=== PATIENT | female | born 1985 | race Caucasian/White ===

== ENCOUNTER 2018-03-21 13:52 | Emergency (ER) | payer OTHER ==
--- OUTSIDE RECORDS SUMMARY | 2018-03-21 13:58 | XMS REPORT | Continuity of Care Document ---
:1985 External Reference #:[id number] Author Name Brice Mcneal M.D. Address [address] [place] [address] [address] [place] [address] Care Team Providers Name Role Phone HCP given Primary Care Physician Unavailable Payers Type Date Identification Numbers Payment Provider Subscriber Expires: 2017 Policy Number: [id number] Bebe Ronstaci Munoz Group Name: [id number] PayID: [id number] [place] [address] Effective: 2017 Policy Number: [id number] [facility] Munoz PayID: [id number] [address] [address] [place] [address] Advance Directives Description No Information Available Problems Date Description Provider Status Onset: 02/05/2018 Anxiety state Jennifer Demarco PA Active Onset: 02/05/2018 Irritable bowel syndrome characterized by Jennifer Demarco PA Active alternating bowel habit Onset: 02/05/2018 Chronic myeloid leukemia Jennfier Demarco PA Active Onset: 08/21/2017 Overweight Jennifer Demarco PA Active Onset: 10/20/2014 Abnormal cervical Papanicolaou smear with Prerna Royal MD Active positive human papillomavirus deoxyribonucleic acid test Onset: 09/18/2012 Personal History Of Gestational Diabetes Prerna Royal MD Active Onset: 09/18/2011 Morbid obesity Prerna Royal MD Active Family History Date Family Member(s) Problem(s) Comments Father 1961.high bp, obesity Mother 1961 htn and obesity. fibroids/ten for menorrhagia Text Input 2 brothers(youngerx1 ) and one sister.great MGM with coloncancer. mom with neg screen to date. 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 wine Recreational Drug Use Denies Drug Use Tobacco Use Start: Unknown Non Smoker Smoking Status Reviewed: 08/22/17 Non Smoker Exercise Type/Frequency Exercises regularly runner Sun Exposure Uses sunscreen Guns in Home No Smoke Alarms Yes smoke alarm Currently Active Patient is currently sexually active Contraceptive Methods IUD Mirena STD's HPV Allergies, Adverse Reactions, Alerts Description No Known Drug Allergies Medications Medication Date Status Form Strength Qnty SIG Indications Ordering Provider Hyoscyamine 03/12 Active Tablets 0.125mg 90tab 1 tab po K58.2 Silcojimmie, Sulfate s tid prn for Brice IBS M.D. symptoms Imatinib 02/11 Active Tablets 400mg Take One Unknown Mesylate Tablet By Mouth Daily With A Meal And A Glass Of Water Ativan 01/10 Active Tablets 0.5mg 45tab take 1/2 to Elizabet, s 1 tablet by toby Narvaez up to M.D. 3 tablets per day as needed when anxiety is severe maximum daily dose of 3 per day Multivitamin 12/20 Active Tablets 1 by mouth Unknown every day Mirena (52 MG) Active IUD 20mcg/24H Unknown R Dicyclomine HCL 02/05 Hx Tablets 20mg 90tab 1 tab by K58.2 Elizabet, s mouth up to Brice, - three times M.D. 03/11 a day with meals as needed for diarrhea Omeprazole 02/[address] 20mg 30cap 1 cap by R12 Elizabet, s mouth every Brice, - day for M.D. 03/11 heartburn Tamiflu 07/15 Hx Capsules 75mg 10cap 1 by mouth s once a day A. - Winter, 07/24 M.D. /2015 No Active 10/20 Hx Unknown Medications /2014 - 07/15 Benzonatate 04/24 Hx Capsules 100mg 30cap 1-2 by 786.2 Elizabet, s mouth three Brice, - times a day M.D. 05/08 as needed for cough Symbicort 04/24 Hx Aerosol 80-4.5mcg 1samp 2 puffs 786.2 Silcoff, /2013 /Act le 2x/day; Domenico Narvaez M.D. 05/08 after use Ciprofloxacin 11/23 Hx Tablets 250mg 6tabs 1 tab by 599.0 Silcoff, HCL mouth twice Brice, - a day x 3 M.D. 11/26 Phenazopyridine 11/23 Hx Tablets 200mg 6tabs 1 tab by 599.0 Silcoff, HCL mouth three Brice, - times a M.D. 12/24 day, as needed Azithromycin 10/14 Hx Tablets 250mg 6tabs 2 tab po on 786.2 Lele day one Prerna CROSS - then one 11/20 tab daily 4more days prn for your respiratory infection Fluticasone 10/14 Hx Suspension 50mcg/Act 3unit 2 sprays 786.2 Propionate s into each Prerna CROSS - nostril qd 11/14 for nasal congestion. takes 2 days for effect. use for a week. rinse mouth post Dicloxacillin 08/31 Hx Capsules 500mg 40cap 1 cap po 611.9 Silcoff, Sodium s qid x 10 Brice, - days M.D. 09/10 Medela Double 04/02 Hx 1unit use as Lele Breast Pump s needed for Prerna CROSS - adequate 10/14 milk supply for your baby. Bupropion HCL XL 10/08 Hx Tablets ER 300mg 90tab take 1 309.0 24HR s tablet Prerna CROSS - every 11/17 morning Prilosec 09/[address] 20mg 180ca 1 tab po 530.81 Lele, ps daily. can Prerna CROSS - use bid 09/17 prn. Prozac 09/17 Hx Capsules 20mg 90cap one po in 309.0 Lele, s am . Prerna CROSS - 09/17 Pantoprazole 09/[address] 20mg 90tab one tab po 530.81 Lele, Sodium s daily for Prerna CROSS - your reflux 01/04 symtpoms /2012 instead of the omepazole as is safer Bupropion HCL XL 09/17 Hx Tablets ER 150mg 60tab 1 tablet 309.0 Lele, 24HR s every Prerna CROSS - morning for 10/08 3 days then change to 300mg or 2 tab qam. when run out fill script for 300 mg 09/16 Hx Tablets 0.8mg otc one tablet Unknown po daily - 10/16 Nitrofurantoin 12/25 Hx Capsules 100mg 28cap 1 tab po 599.0 Lindseycojimmie s qid x 7 Brice, - days M.D. 01/01 Multi Vitamin 07/27 Hx Tablets Lele, Prerna CROSS - 09/16 Cipro 02/10 Hx Tablets 250mg 6tabs 1 tab bid x 599.0 Elizabet 3 Brice, - M.D. 06/26 Ortho Tri-Cyclen Hx Tablets 3pill take one V25.09 Lele Lo /0000 pk tablet by Prerna CROSS - mouth every 12/22 day directed Calcium Chews Hx Chewtabs 600-400mg otc as directed Unknown /0000 -Unit - 10/19 Immunizations CPT Code Status Date Vaccine Lot # [id number] Given 09/18/2011 Adacel or Boostrix, TDaP [id number] Vital Signs Date Vital Result Comment 03/12/2018 9:19am BP Systolic 140 mmHg BP Diastolic 60 mmHg Height 68.50 inches 5'8.50" Weight 259.00 lb BMI (Body Mass Index) 38.8 kg/m2 02/05/2018 9:34am BP Systolic 128 mmHg BP Diastolic 80 mmHg Weight 259.00 lb with shoes 01/10/2018 11:21am BP Systolic 134 mmHg BP Diastolic 70 mmHg Weight 265.00 lb 08/21/2017 4:03pm BP Systolic 124 mmHg BP Diastolic 78 mmHg Height 68.5 inches 5'8.50" Weight 262.00 lb BMI (Body Mass Index) 39.3 kg/m2 12/22/2015 2:48pm BP Systolic 116 mmHg BP Diastolic 64 mmHg Height 68.50 inches 5'8.50" Weight 215.00 lb BMI (Body Mass Index) 32.2 kg/m2 Last Menstrual Period [id number] 10/20/2014 9:40am BP Systolic 124 mmHg BP Diastolic 80 mmHg Height 68.5 inches 5'8.50" Weight 246.00 lb BMI (Body Mass Index) 36.9 kg/m2 04/24/2014 11:04am BP Systolic 110 mmHg BP Diastolic 78 mmHg Respiratory Rate 12 /min not laboured Body Temperature 98.6 F Height 68.50 inches 5'8.50" Weight 246.00 lb BMI (Body Mass Index) 36.9 kg/m2 11/23/2013 12:25pm BP Systolic 121 mmHg BP Diastolic 67 mmHg Heart Rate 52 /min Body Temperature 98.6 F Weight 270.00 lb 10/14/2013 10:57am BP Systolic 102 mmHg BP Diastolic 72 mmHg Height 68 inches 5'8" Weight 277.00 lb BMI (Body Mass Index) 42.1 kg/m2 Last Menstrual Period [id number] IUD 09/04/2013 3:59pm BP Systolic 116 mmHg BP Diastolic 82 mmHg Body Temperature 98.0 F 08/31/2013 4:31pm BP Systolic 115 mmHg BP Diastolic 59 mmHg Heart Rate 60 /min Body Temperature 97.8 F Height 68 inches 5'8" Weight 276.00 lb BMI (Body Mass Index) 42.0 kg/m2 09/18/2012 3:03pm BP Systolic 120 mmHg BP Diastolic 78 mmHg Height 67.50 inches 5'7.50" Weight 284.00 lb BMI (Body Mass Index) 43.8 kg/m2 10/09/2011 10:09am BP Systolic 120 mmHg BP Diastolic 70 mmHg Weight 293.00 lb 09/18/2011 9:50am BP Systolic 124 mmHg BP Diastolic 76 mmHg Height 68.25 inches 5'8.25" Weight 297.00 lb BMI (Body Mass Index) 44.8 kg/m2 Last Menstrual Period [id number] 12/25/2010 2:26pm BP Systolic 120 mmHg BP Diastolic 60 mmHg Body Temperature 98.2 F Weight 266.00 lb 07/27/2010 3:46pm BP Systolic 138 mmHg BP Diastolic 80 mmHg Height 68.50 inches 5'8.50" Weight 273.00 lb BMI (Body Mass Index) 40.9 kg/m2 Last Menstrual Period [id number] 02/10/2010 1:37pm BP Systolic 116 mmHg BP Diastolic 71 mmHg Heart Rate 68 /min Body Temperature 98.5 F Height 68.5 inches 5'8.50" Weight 280.00 lb BMI (Body Mass Index) 42.0 kg/m2 Last Menstrual Period [id number] 07/07/2009 10:25am BP Systolic 130 mmHg BP Diastolic 78 mmHg Weight 263.00 lb Last Menstrual Period 0 12/30/2008 1:59pm BP Systolic 140 mmHg my readings 120/80 both arms. BP Diastolic 82 mmHg my readings 120/80 both arms. Height 68.5 inches 5'8.50" Weight 258.00 lb BMI (Body Mass Index) 38.7 kg/m2 Last Menstrual Period [id number] Results Test Date Facility Test Result H/L Range Note CBC Auto Diff 02/28/2018 [facility] White Blood 68.5 10^3/uL High 3.5 -10.8 [phone] Count Red Blood Count 3.62 10^6/uL Low 4.00-5.40 Hemoglobin 10.1 g/dL Low 12.0-16.0 Hematocrit 32 % Low 35-47 Mean Corpuscular Volume 89 fL 80-97 Mean Corpuscular Hemoglobin 28 pg 27-31 Mean Corpuscular HGB Conc 31 g/dL 31-36 Red Cell Distribution Width 17 % High 10.5-15 Platelet Count 303 10^3/uL 150-450 Mean Platelet Volume 9.3 um3 7.4-10.4 Abs Neutrophils 60.1 10^3/uL High 1.5-7.7 Manual Differential 02/28/2018 [facility] Immature Granulocytes 14 % High 0-9 [phone] Neutrophil % 66 % 38-83 Band % 7 % 0-8 Lymphocytes % 10 % Low 25-47 Monocytes % 3 % 0-7 Eosinophils % 3 % 0-6 Basophil % 4 % High 0-2 Metamyelocytes % 5 % High 0-2 Myelocytes % 2 % High 0-1 Nucleated Red Blood Cells/100 1 High 0-0 Abs Neutrophils 45.2 10^3/uL High 1.5-7.7 Abs Lymphocytes 6.9 10^3/uL High 1.0-4.8 Abs Monocytes 2.1 10^3/uL High 0-0.8 Abs Eosinophils 2.1 10^3/uL High 0-0.6 Abs Basophils 2.7 10^3/uL High 0-0.2 RBC Morphology Normal Normal Laboratory test 02/28/2018 [facility] Pathologist Review (SEE NOTE) 1 finding [phone] Comp Metabolic 02/21/2018 [facility] Sodium 140 mmol/L 135-145 Panel [phone] Potassium 3.9 mmol/L 3.5-5.0 Chloride 108 mmol/L 101-111 Co2 Carbon Dioxide 26 mmol/L 22-32 Anion Gap 6 mmol/L 2-11 Glucose 108 mg/dL High 70-100 Blood Urea Nitrogen 13 mg/dL 6-24 Creatinine 0.74 mg/dL 0.51-0.95 BUN/Creatinine Ratio 17.6 8-20 Calcium 9.1 mg/dL 8.6-10.3 Total Protein 6.7 g/dL 6.4-8.9 Albumin 4.1 g/dL 3.2-5.2 Globulin 2.6 g/dL 2-4 Albumin/Globulin Ratio 1.6 1-3 Total Bilirubin 0.60 mg/dL 0.2-1.0 Alkaline Phosphatase 74 U/L 34-104 Alt 30 U/L 7-52 Ast 31 U/L 13-39 Egfr Non- 89.8 >60 Egfr 108.7 >60 2 Laboratory test 02/21/2018 [facility] TSH (Thyroid 2.72 mcIU/mL 0.34 -5.60 finding [phone] Stim Horm) CBC Auto Diff 02/21/2018 [facility] White Blood 175.6 High 3.5-10.8 [phone] Count 10^3/uL Red Blood Count 3.55 10^6/uL Low 4.00-5.40 Hemoglobin 9.9 g/dL Low 12.0-16.0 Hematocrit 32 % Low 35-47 Mean Corpuscular Volume 89 fL 80-97 Mean Corpuscular Hemoglobin 28 pg 27-31 Mean Corpuscular HGB Conc 31 g/dL 31-36 Red Cell Distribution Width 17 % High 10.5-15 Platelet Count 361 10^3/uL 150-450 Mean Platelet Volume 9.4 um3 7.4-10.4 Abs Neutrophils 160.1 10^3/uL High 1.5-7.7 Abs Lymphocytes 7.4 10^3/uL High 1.0-4.8 Abs Monocytes 3.5 10^3/uL High 0-0.8 Abs Eosinophils 2.9 10^3/uL High 0-0.6 Abs Basophils 1.7 10^3/uL High 0-0.2 Manual Differential 02/21/2018 [facility] Immature Granulocytes 19 % High 0-9 [phone] Neutrophil % 64 % 38-83 Band % 14 % High 0-8 Lymphocytes % 6 % Low 25-47 Monocytes % 1 % 0-7 Eosinophils % 4 % 0-6 Basophil % 5 % High 0-2 Variant Lymph % 1 % 0-6 Metamyelocytes % 2 % 0-2 Myelocytes % 3 % High 0-1 Nucleated Red Blood Cells/100 2 High 0-0 Abs Neutrophils 112.4 10^3/uL High 1.5-7.7 Abs Lymphocytes 10.5 10^3/uL High 1.0-4.8 Abs Monocytes 1.8 10^3/uL High 0-0.8 Abs Eosinophils 7.0 10^3/uL High 0-0.6 Abs Basophils 8.8 10^3/uL High 0-0.2 Polychromasia 1+ Laboratory test 02/21/2018 [facility] Pathologist Review (SEE NOTE) 3 finding [phone] Laboratory test 02/04/2018 [facility] Pathologist Review (SEE NOTE) 4 finding [phone] Manual Differential 02/04/2018 [facility] Immature 23 % High 0-9 [phone] Granulocytes Neutrophil % 73 % 38-83 Band % 15 % High 0-8 Lymphocytes % 0 % Low 25-47 Monocytes % 0 % 0-7 Eosinophils % 1 % 0-6 Basophil % 0 % 0-2 Metamyelocytes % 4 % High 0-2 Myelocytes % 3 % High 0-1 Promyelocytes % 1 % Blast % 3 % High 5 Nucleated Red Blood Cells/100 25 High 0-0 Abs Neutrophils 113.4 10^3/uL High 1.5-7.7 Abs Lymphocytes 0 10^3/uL Low 1.0-4.8 Abs Monocytes 0 10^3/uL 0-0.8 Abs Eosinophils 1.6 10^3/uL High 0-0.6 Abs Basophils 0 10^3/uL 0-0.2 Hypochromasia 1+ Anisocytosis 1+ Laboratory test 02/04/2018 [facility] TSH (Thyroid 1.61 mcIU/mL 0.34 -5.60 finding [phone] Stim Horm) Comp Metabolic 02/04/2018 [facility] Sodium 137 mmol/L 135-145 Panel [phone] Potassium 3.8 mmol/L 3.5-5.0 Chloride 105 mmol/L 101-111 Co2 Carbon Dioxide 26 mmol/L 22-32 Anion Gap 6 mmol/L 2-11 Glucose 134 mg/dL High 70-100 Blood Urea Nitrogen 9 mg/dL 6-24 Creatinine 0.73 mg/dL 0.51-0.95 BUN/Creatinine Ratio 12.3 8-20 Calcium 9.2 mg/dL 8.6-10.3 Total Protein 7.5 g/dL 6.4-8.9 Albumin 4.3 g/dL 3.2-5.2 Globulin 3.2 g/dL 2-4 Albumin/Globulin Ratio 1.3 1-3 Total Bilirubin 0.60 mg/dL 0.2-1.0 Alkaline Phosphatase 62 U/L 34-104 Alt 25 U/L 7-52 Ast 28 U/L 13-39 Egfr Non- 91.3 >60 Egfr 110.4 >60 6 CBC Auto Diff 02/04/2018 [facility] White Blood 155.3 10^3/uL High 3.5-10.8 [phone] Count Red Blood Count 3.52 10^6/uL Low 4.00-5.40 Hemoglobin 9.9 g/dL Low 12.0-16.0 Hematocrit 31 % Low 35-47 Mean Corpuscular Volume 88 fL 80-97 Mean Corpuscular Hemoglobin 28 pg 27-31 Mean Corpuscular HGB Conc 32 g/dL 31-36 Red Cell Distribution Width 17 % High 10.5-15 Platelet Count 534 10^3/uL High 150-450 Mean Platelet Volume 8.6 um3 7.4-10.4 Abs Neutrophils 142.6 10^3/uL High 1.5-7.7 Leukemia/Lymphoma 01/21/2018 [facility] Path Interpretation (SEE NOTE) 7 Phenot [phone] 2-8 Marker BCR/Abl Trans 9:22 01/21/2018 [facility] BCR/abl (Fish) Abnormal Fish [phone] Result Summary BCR/abl (Fish) Result Table See Comment 8 BCR/abl (Fish) Specimen Bone Marrow BCR/abl (Fish) Referral Reason See Comment 9 BCR/abl (Fish) Method See Comment 10 BCR/abl Results See Comment 11 BCR/abl (Fish) Interpretation See Comment 12 BCR/abl (Fish) Additional Info See Comment 13 BCR/abl (Fish) Disclaimer See Comment 14 BCR/abl (Fish) Released By See Comment 15 CBC Auto Diff 01/21/2018 [facility] White Blood 142.9 10^3/uL High 3.5-10.8 [phone] Count Red Blood Count 3.69 10^6/uL Low 4.00-5.40 Hemoglobin 10.5 g/dL Low 12.0-16.0 Hematocrit 33 % Low 35-47 Mean Corpuscular Volume 89 fL 80-97 Mean Corpuscular Hemoglobin 29 pg 27-31 Mean Corpuscular HGB Conc 32 g/dL 31-36 Red Cell Distribution Width 17 % High 10.5-15 Platelet Count 335 10^3/uL 150-450 Mean Platelet Volume 9.1 um3 7.4-10.4 Abs Neutrophils 127.5 10^3/uL High 1.5-7.7 Abs Lymphocytes 6.2 10^3/uL High 1.0-4.8 Abs Monocytes 5.1 10^3/uL High 0-0.8 Abs Eosinophils 2.0 10^3/uL High 0-0.6 Abs Basophils 2.1 10^3/uL High 0-0.2 Manual Differential 01/21/2018 [facility] Immature Granulocytes 23 % High 0-9 [phone] Neutrophil % 55 % 38-83 Band % 11 % High 0-8 Lymphocytes % 5 % Low 25-47 Monocytes % 4 % 0-7 Eosinophils % 3 % 0-6 Basophil % 7 % High 0-2 Metamyelocytes % 3 % High 0-2 Myelocytes % 7 % High 0-1 Promyelocytes % 2 % Blast % 3 % High 16 Nucleated Red Blood Cells/100 4 High 0-0 Abs Neutrophils 78.6 10^3/uL High 1.5-7.7 Abs Lymphocytes 7.1 10^3/uL High 1.0-4.8 Abs Monocytes 5.7 10^3/uL High 0-0.8 Abs Eosinophils 4.3 10^3/uL High 0-0.6 Abs Basophils 10.0 10^3/uL High 0-0.2 RBC Morphology Normal Normal Laboratory test 01/21/2018 [facility] Pathologist Review (SEE NOTE) 17 finding [phone] BCR/Abl Trans 9:22 01/14/2018 [facility] BCR/abl (Fish) Abnormal Fish [phone] Result Summary BCR/abl (Fish) Result Table See Comment 18 BCR/abl (Fish) Specimen Blood BCR/abl (Fish) Referral Reason See Comment 19 BCR/abl (Fish) Method See Comment 20 BCR/abl Results See Comment 21 BCR/abl (Fish) Interpretation See Comment 22 BCR/abl (Fish) Disclaimer See Comment 23 BCR/abl (Fish) Released By See Comment 24 CBC Auto Diff 01/10/2018 [facility] White Blood 182.5 10^3/uL High 3.5-10.8 [phone] Count Red Blood Count 3.48 10^6/uL Low 4.00-5.40 Hemoglobin 10.0 g/dL Low 12.0-16.0 Hematocrit 31 % Low 35-47 Mean Corpuscular Volume 89 fL 80-97 Mean Corpuscular Hemoglobin 29 pg 27-31 Mean Corpuscular HGB Conc 32 g/dL 31-36 Red Cell Distribution Width 17 % High 10.5-15 Platelet Count 425 10^3/uL 150-450 Mean Platelet Volume 8.7 um3 7.4-10.4 Abs Neutrophils 163.5 10^3/uL High 1.5-7.7 Comp Metabolic Panel 01/10/2018 [facility] Sodium 138 mmol/L 135- 145 [phone] Potassium 3.8 mmol/L 3.5-5.0 Chloride 105 mmol/L 101-111 Co2 Carbon Dioxide 27 mmol/L 22-32 Anion Gap 6 mmol/L 2-11 Glucose 94 mg/dL 70-100 Blood Urea Nitrogen 12 mg/dL 6-24 Creatinine 0.68 mg/dL 0.51-0.95 BUN/Creatinine Ratio 17.6 8-20 Calcium 9.0 mg/dL 8.6-10.3 Total Protein 6.9 g/dL 6.4-8.9 Albumin 4.2 g/dL 3.2-5.2 Globulin 2.7 g/dL 2-4 Albumin/Globulin Ratio 1.6 1-3 Total Bilirubin 0.60 mg/dL 0.2-1.0 Alkaline Phosphatase 104 U/L 34-104 Alt 79 U/L High 7-52 Ast 55 U/L High 13-39 Egfr Non- 99.0 >60 Egfr 119.8 >60 25 Celiac Panel 01/10/2018 [facility] Tissue Transglutaminase IgA <1.2 U/ mL 26 [phone] Ab Immunoglobulin A 151 mg/dL 61 - 356 Celiac Interpretation See Comment 27 Laboratory test finding 01/10/2018 [facility] Lipase 51 U/L 11.0- 82.0 [phone] Erythrocyte Sed Rate 38 mm/Hr High 0-14 Amylase 32 U/L 29-103 Manual Differential 01/10/2018 [facility] Immature Granulocytes 39 % High 0-9 [phone] Neutrophil % 47 % 38-83 Band % 16 % High 0-8 Lymphocytes % 5 % Low 25-47 Monocytes % 4 % 0-7 Eosinophils % 2 % 0-6 Basophil % 2 % 0-2 Metamyelocytes % 6 % High 0-2 Myelocytes % 15 % High 0-1 Promyelocytes % 2 % Blast % 1 % High 28 Abs Neutrophils 85.8 10^3/uL High 1.5-7.7 Abs Lymphocytes 9.1 10^3/uL High 1.0-4.8 Abs Monocytes 7.3 10^3/uL High 0-0.8 Abs Eosinophils 3.7 10^3/uL High 0-0.6 Abs Basophils 3.7 10^3/uL High 0-0.2 Polychromasia 1+ Anisocytosis 2+ Laboratory test 01/10/2018 [facility] Pathologist Review (SEE NOTE) 29 finding [phone] Laboratory test 12/22/2015 [facility] Hemoglobin A1c <pending> finding [phone] (Glyco HGB) Vitamin D Total 25(Oh) <pending> Laboratory test 12/22/2015 [facility] TSH (Thyroid <pending> finding [phone] Stim Horm) Laboratory test 12/22/2015 [facility] Cytology SEE RESULT BELOW 30 finding [phone] Human Papilloma Virus Rna Negative Negative 31 Laboratory test finding 10/20/2014 [facility] Cytology SEE RESULT BELOW 32 [phone] Human Papilloma Virus Rna Negative Negative 33 Laboratory test finding 10/20/2014 In House Glucose Quantitative 63 Laboratory test finding 10/20/2014 In House Hemoglobin A1c 5.7 Ua Inhouse 11/23/2013 In House Ua Glucose - Ua Bilirubin - Ua Ketones - Ua Specific [place] 1.020 Ua Blood sm Ua PH 6.5 Ua Protein 1+ Ua Urobilinogen - Ua Nitrite + Ua Leukocytes mod Laboratory test 10/14/2013 In House Hemoglobin A1c 5.3 finding Laboratory test 10/14/2013 In House Glucose 87 finding Human Papilloma 09/22/2012 [facility] Human Papillomavirus See Comment 34 Virus [phone] Source Human Papillomavirus High Risk Negative Negative 35 Laboratory test 09/18/2012 [facility] Cytology RUN DATE: wnl 36, 37 finding [phone] 09/22/ SEE NOTE> Laboratory test 09/18/2012 In House Glucose 98 finding Quantitative Hemoglobin A1c 5.7 Comp Metabolic Panel 12/14/2011 [facility] Sodium 135 mmol/L 135- 145 [phone] Potassium 3.6 mmol/L 3.5-5.0 Chloride 109 mmol/L 101-111 Co2 (Carbon Dioxide) 22.0 mmol/L 22-32 Anion Gap 4.0 mmol/L 2-11 38 Glucose 105 mg/dL High 70-100 BUN 10 mg/dL 6-24 Creatinine 0.6 mg/dL 0.50-1.40 One Over Creatinine 1.66 BUN/Creatinine Ratio 16.7 8-20 Calcium 8.6 mg/dL 8.1-9.9 Total Protein 6.1 GM/DL Low 6.2-8.1 Albumin 3.6 GM/DL 3.6-5.4 Globulin 2.5 GM/DL 2-4 Albumin/Globulin Ratio 1.4 1-3 Bilirubin Total 0.7 mg/dL 0.4-1.5 39 Alkaline Phosphatase 51 U/L 30-110 Alt (SGPT) 18 U/L 14-54 Ast (Sgot) 19 U/L 12-42 eGFR Non- 119.0 > 60 eGFR 153.1 > 60 40 Laboratory test 12/14/2011 [facility] Quantitative 6203.0 High 0 -5 41 finding [phone] MIU/ML Urine Culture & 12/14/2011 [facility] M 42 Sensitivi [phone] ----- <SEE NOTE> Laboratory test 12/14/2011 [facility] PTT (Aptt) 24.7 SEC Low 25.1- 38. finding [phone] Protime 12/14/2011 [facility] Inr 0.94 0.88-1.1 43 [phone] 3 Protime 11.1 SEC 10.3-13.5 44 Urinalysis W/Microscopic 12/14/2011 [facility] Ua Color YELLOW Yellow [phone] Appearance-Urine CLEAR Clear Specific [place]-Ur 1.022 1.010-1.030 Esterase-Urine NEGATIVE Negative Nitrite NEGATIVE Negative [id number] NEGATIVE Negative Protein-Urine NEGATIVE Negative PH-Urine 5.5 5-9 Blood-Urine 2+ Negative Ketones-Urine NEGATIVE Negative Bilirubin-Ur NEGATIVE Negative Glucose-Urine NEGATIVE Negative RBC-Urine 0-2 0-2 Epith Cells-Ur MANY None Bacteria-Urine 1+ None CBC Auto Diff 12/14/2011 [facility] White Blood Count 12.2 CUMM High 4.8-10.8 [phone] Red Cell Count 4.79 CUMM 4.2-5.4 Hemoglobin 13.4 g/dL 12.0-16.0 Hematocrit 40 % 35-47 Mean Corpuscular Volume 84 um3 79-97 Mean Corpuscular Hemoglob 28 pg 27-31 Mean Corpuscular HGB Cone 34 g/dL 32-36 Redcell Distribution WDTH 14 % 10.5-15 Platelet Count 265 CUMM 150-450 Mean Platelet Volume 9.5 um3 7.4-10.4 Gran % 72.5 % 38-83 Lymph % 20.6 % 20-45 Mononuclear % 6.0 % 1-9 Eosinophil % 0.3 % 0-6 Basophil % 0.6 % 0-2 Abs Lymphs 2.5 1.0-4.8 Abs Mononuclear 0.7 0-0.8 Absolute Neutrophil Count 8.8 High 1.5-7.7 Abs Eosinophils 0 0-0.6 Abs Basophils 0.1 0-0.2 Laboratory test 09/14/2011 [facility] TSH 2.41 MIU/ML 0.34-5.60 finding [phone] Lipid Profile 09/14/2011 [facility] Triglyceride 63 mg/dL 40-200 (Trig/Chol/HDL) [phone] Cholesterol 152 mg/dL Less Than 200 45 High Density Lipoprotein 59 mg/dL 40-60 46 Cholesterol/HDL Ratio 2.58 AVERAGE 1-4.44 Low Density Lipoprotein 80 mg/dL Less Than 100 47 Comp Metabolic Panel 09/14/2011 [facility] Sodium 135 mmol/L 135- 145 [phone] Potassium 3.9 mmol/L 3.5-5.0 Chloride 105 mmol/L 101-111 Co2 (Carbon Dioxide) 26.0 mmol/L 22-32 Anion Gap 4.0 mmol/L 2-11 48 Glucose 97 mg/dL 70-100 BUN 11 mg/dL 6-24 Creatinine 0.7 mg/dL 0.50-1.40 One Over Creatinine 1.42 BUN/Creatinine Ratio 15.7 8-20 Calcium 8.4 mg/dL 8.1-9.9 Total Protein 6.4 GM/DL 6.2-8.1 Albumin 3.6 GM/DL 3.6-5.4 Globulin 2.8 GM/DL 2-4 Albumin/Globulin Ratio 1.3 1-3 Bilirubin Total 0.8 mg/dL 0.4-1.5 49 Alkaline Phosphatase 54 U/L 30-110 Alt (SGPT) 24 U/L 14-54 Ast (Sgot) 25 U/L 12-42 eGFR Non- 99.6 > 60 eGFR 128.1 > 60 50 CBC With Manual 09/14/2011 [facility] White Blood Count 7.5 CUMM 4.8 -10.8 Diff [phone] Red Cell Count 4.76 CUMM 4.2-5.4 Hemoglobin 13.9 g/dL 12.0-16.0 Hematocrit 40 % 35-47 Mean Corpuscular Volume 85 um3 79-97 Mean Corpuscular Hemoglob 29 pg 27-31 Mean Corpuscular HGB Cone 34 g/dL 32-36 Redcell Distribution WDTH 14 % 10.5-15 Platelet Count 260 CUMM 150-450 Mean Platelet Volume 10.8 um3 High 7.4-10.4 Polysegmented Neutrophil 53 % 38-83 Lymphocyte 40 % 25-47 Monocyte 5 % 0-13 Eosinophil 2 % 0-6 Absolute Neutrophil Count 3.90 RBC Morphology NORMAL [facility]0 High 0 -5 51 finding [phone] MIU/ML Urine Micro 12/25/2010 In House Ua WBC 4-6 Inhouse Ua RBC 8-10 Ua Casts - Ua Epi - Ua Other casts Ua Glucose - Ua Bilirubin - Ua Ketones - Ua Specific [place] 1.020 Ua Blood 3+ Ua PH 6.0 Ua Protein + Ua Urobilinogen - Ua Nitrite - Ua Leukocytes 3+ Laboratory test 07/27/2010 [facility] Cytology <SEE 52 finding [phone] NOTE> Urine Micro Inhouse 02/10/2010 In House Ua WBC tntc Ua RBC occ Ua Casts - Ua Epi - Ua Other - Ua Glucose - Ua Bilirubin - Ua Ketones - Ua Specific [place] 1.010 Ua Blood - Ua PH 6.0 Ua Protein tr Ua Urobilinogen - Ua Nitrite - Ua Leukocytes mod Culture Urine 02/10/2010 In House Colonies 02/20 Inhouse Urine Culture & 10/22/2009 [facility] Urine Culture SN2 53 Sensitivi [phone] Sensitivi Laboratory test 07/07/2009 [facility] Cytology 54 finding [phone] - <SEE NOTE> 1 Findings compatible with the patient's known myeloproliferative disorder. Additional studies as clinically warranted. Reviewed by Dr. Hernandez 2 Because ethnic data is not always readily available, this report includes an eGFR for both -Americans and non- Americans. The National Kidney Disease Education Program (NKDEP) does not endorse the use of the MDRD equation for patients that are not between the ages of 18 and 70, are , have extremes of body size, muscle mass, or nutritional status, or are non- or non-. According to the National Kidney Foundation, irrespective of diagnosis, the stage of the disease is based on the level of kidney function: Stage Description GFR(mL/min/1.73 m(2)) 1 Kidney damage with normal or decreased GFR 90 2 Kidney damage with mild decrease in GFR 60-89 3 Moderate decrease in GFR 30-59 4 Severe decrease in GFR 15-29 5 Kidney failure <15 (or dialysis) 3 Leukocytosis with left-shifted granulocytes and occasional circulating blasts, compatible with CML. Reviewed by Trinity Sanchez MD 4 Profound absolute leukocytosis with left-shifted granulocytes, absolute neutrophilia, and absolute basophilia, compatible with CML. No evidence of blastic transformation. Reviewed by Trinity Sanchez MD 5 Verbal to [id number] by [id number] at 1515 on 02/04/18. Results read back accurately. 6 Because ethnic data is not always readily available, this report includes an eGFR for both -Americans and non- Americans. The National Kidney Disease Education Program (NKDEP) does not endorse the use of the MDRD equation for patients that are not between the ages of 18 and 70, are , have extremes of body size, muscle mass, or nutritional status, or are non- or non-. According to the National Kidney Foundation, irrespective of diagnosis, the stage of the disease is based on the level of kidney function: Stage Description GFR(mL/min/1.73 m(2)) 1 Kidney damage with normal or decreased GFR 90 2 Kidney damage with mild decrease in GFR 60-89 3 Moderate decrease in GFR 30-59 4 Severe decrease in GFR 15-29 5 Kidney failure <15 (or dialysis) 7 FINAL DIAGNOSIS: No immunophenotypic abnormalities identified. Specimen Source: Bone marrow Flow cytometry immunophenotypic analysis: Interpretative data: Blasts: 1% Lymphocytes: 2% of WBCs B-cells: 7% of lymphocytes with no evidence of light chain restriction or other immunophenotypic abnormality. T-cells/NK cells: No aberrant population detected. Markers tested: CD3, CD10, CD16, CD19, CD34, CD45, kappa surface light chains, lambda surface light chains, 7-AAD. Quality Assessment: Acceptable Viability: Acceptable Viable lymphocytes (7-AAD): 98% Specimen received within validated guidelines. A Gorman-Giemsa stained slide prepared from the flow cytometry specimen was examined for quality purposes. Electronically signed by: Reese Hernandez MD 01/24/18 3000 Technical component performed by: [address] [address] Market Survey Representative: Toño Gomes II, MD, PhD. 8 Abnormality Name Result Abn Cutoff (%) (%) t(9;22) ABL1/BCR fusion Abnormal 89.2 <0.6 9 RESULT: D72.829 elevated white blood cell count, unspecified 10 Locus and probes [Strategy;#Nuclei;Class] 9q34(ABL1),22q11.2(BCR) [DFISH;500;ASR] Probe strategy includes: DFISH=dual color, double fusion. 11 RESULT: nuc boris(ABL1,BCR)x3(ABL1 con BCRx2)[446/500] 12 The result is abnormal and indicates BCR/ABL1 fusion in 89.2% of nuclei. This result indicates persistence of this patient's known BCR/ABL1 fusion clone. For monitoring response to therapy, RT-PCR for BCR/ABL is recommended, per NCCN guidelines. Although RT-PCR testing is not available on the current specimen, this testing can be performed on blood or bone marrow collected in EDTA or ACD. Please call [phone] regarding specimen requirements for RT-PCR based tests. 13 Previous Studies DATE SPECIMEN RESULT 01/14/2018 Blood BCR/ABL1 fusion (93% of nuclei) 14 Analyte Specific Reagent (ASR). This test was developed using an analyte specific reagent. Its performance characteristics were determined by [facility] in a manner consistent with CLIA requirements. This test has not been cleared or approved by the U.S. Food and Drug Administration. This FISH test does not rule out other chromosome abnormalities. 15 RESULT: Genesis Erickson D.O. Test Performed by: [address] [address] 16 Verbal to [] by [[id number]] at [0945] on [01/21/18].Results read back accurately 17 Progressive, marked leukocytosis with immature granulocytosis and few blasts highly suggestive of chronic myelogenous leukemia. Mild normocytic anemia noted. Reviewed by Dr. Hernandez 18 Abnormality Name Result Abn Cutoff (%) (%) t(9;22) ABL1/BCR fusion Abnormal 93 <0.6 19 RESULT: D72.829 elevated white blood cell count, unspecified 20 Locus and probes [Strategy;#Nuclei;Class] 9q34(ABL1),22q11.2(BCR) [DFISH;500;ASR] Probe strategy includes: DFISH=dual color, double fusion. 21 RESULT: nuc boris(ABL1,BCR)x3(ABL1 con BCRx2)[465/500] 22 The result is abnormal and indicates BCR/ABL1 fusion in 93% of nuclei. This result is usually associated with CML or B-ALL (Gilbertoom et al., Leuk Lymphoma 47:397-402, 2006; Filibertos et al., DANI 286:895-898, 2001). For monitoring response to therapy, RT-PCR for BCR/ABL1 is recommended, per NCCN guidelines. Although RT-PCR testing is not available on the current specimen, this testing can be performed on blood or bone marrow collected in EDTA or ACD. Please call [phone] regarding specimen requirements for RT-PCR based tests. 23 Analyte Specific Reagent (ASR). This test was developed using an analyte specific reagent. Its performance characteristics were determined by [facility] in a manner consistent with CLIA requirements. This test has not been cleared or approved by the U.S. Food and Drug Administration. This FISH test does not rule out other chromosome abnormalities. 24 RESULT: Cyndi Armstrong M.D. Test Performed by: [address] [address] 25 Because ethnic data is not always readily available, this report includes an eGFR for both -Americans and non- Americans. The National Kidney Disease Education Program (NKDEP) does not endorse the use of the MDRD equation for patients that are not between the ages of 18 and 70, are , have extremes of body size, muscle mass, or nutritional status, or are non- or non-. According to the National Kidney Foundation, irrespective of diagnosis, the stage of the disease is based on the level of kidney function: Stage Description GFR(mL/min/1.73 m(2)) 1 Kidney damage with normal or decreased GFR 90 2 Kidney damage with mild decrease in GFR 60-89 3 Moderate decrease in GFR 30-59 4 Severe decrease in GFR 15-29 5 Kidney failure <15 (or dialysis) 26 REFERENCE VALUE <4.0 (Negative) Test Performed by: [address] [address] 27 Negative serology. Celiac disease unlikely. However, approximately 10% of patients with celiac disease are seronegative. Also, patients who are already adhering to a gluten-free diet may be seronegative. If celiac disease is highly clinically suspected, consider HLA-DQ typing. Test Performed by: [facility] [address] [place] [address] 28 Verbal to Allison by NAKUL at 1447 on 01/10/18.WBC and % Blast results read back accurately 29 Profound absolute leukocytosis with absolute neutrophilia and left-shifted granulocytes with occasional blasts, most compatible with chronic myeloid leukemia. No evidence of a blast transformation. Recommend correlation with BCR:ABL translocation studies. Reviewed by Trinity Sanchez MD 30 SEE RESULT BELOW Name: EMILIA MUNOZ : [address]: Jennifer BANSAL Acct: [id number] Unit: [id number] AGE: 30 Location: [facility] Re12/22/15 SEX: F Status: REG REF SPEC: [id number] SARAH: 12/22/15-[address]: Jennifer BANSAL REQ: [id number] RECD: 12/22/15929 STATUS: SOUT _ ORDERED: IMAGE ANALYSIS, HPV/Thin Prep COMMENTS: [id number] FINAL DIAGNOSIS Negative for Intraepithelial lesion or Malignancy A. Ectocervical/Endocervical Specimen Adequacy: Satisfactory of evaluation Transformation zone component identified Predominance of white blood cells Patient Information: HPV: High risk HPV RNA testing regardless of pap results. Actual Specimen Date: 12/22/15 Last Menstrual Date: 12/02/15 Spec Date if unknown: 10/2014 ?: N Post Menopausal?: N Hysterectomy?: N Previous Abnormal Pap Smears?:Y If Yes, enter Diagnosis: HPV Other Pertinent History: Mirena IUD Date Time Test Result Flag (u) Normal Range 12/22/15 1525 HPV RNA Negative Negative The high-risk HPV types detected by the assay include: 16, 18, 31, 33, 35, 39, 45, 51, 52, 56, 58, 59, 66, and 68. Signed (signature on file) VERONICA Hylton(ASCP) 12/22 1300 This Pap test was evaluated with the assistance of the [employer] Test Imaging System. Due to cytologic findings at the industrial robotics mechanic microscope, comprehensive manual rescreening by a Faculty Support Coordinator may be required. The Pap Smear is a screening test designed to aid in the detection of premalignant and malignant conditions of the uterine cervix. It is not a diagnostic procedure and should not be used as the sole means of detecting cervical cancer. Both false- positive and false- negative reports do occur. Depending on your risk status, a Pap smear should be obtained and evaluated every 1-3 years. END OF REPORT * ML=Testing performed at Main Lab RUN DATE: 12/23/15 [facility] LAB LIVE PAGE 1 Patient: EMILIA MUNOZ Sarah [id number] (Continued) DEPARTMENT OF PATHOLOGY, [address] [place] [address] Reese Hernandez M.D. Director [facility] # [id number] 31 The high-risk HPV types detected by the assay include: 16, 18, 31, 33, 35, 39, 45, 51, 52, 56, 58, 59, 66, and 68. 32 SEE RESULT BELOW Name: EMILIA MUNOZ : [address]: Prerna Royal MD Acct: [id number] Unit: [id number] AGE: 29 Location: [facility] Re10/20/14 SEX: F Status: REG REF SPEC: [id number] SARAH: 10/20/[address]: Prerna Royal MD REQ: [id number] RECD: 10/20/14 STATUS: SOUT _ ORDERED: IMAGE ANALYSIS, HPV/Thin Prep FINAL DIAGNOSIS Negative for Intraepithelial lesion or Malignancy A. Ectocervical/Endocervical Specimen Adequacy: Satisfactory of evaluation Transformation zone component identified Patient Information: HPV: High risk HPV RNA testing regardless of pap results. Actual Specimen Date: 10/20/14 Last Menstrual Date: 10/02/14 ?: N Post Menopausal?: N Hysterectomy?: N Date Time Test Result Flag (u) Normal Range 10/20/14 1122 HPV RNA Negative Negative The high-risk HPV types detected by the assay include: 16, 18, 31, 33, 35, 39, 45, 51, 52, 56, 58, 59, 66, and 68. Signed (signature on file) Pravin GutierrezVERONICA (ASCP) 10/22 0856 This Pap test was evaluated with the assistance of the [employer] Test Imaging System. Due to cytologic findings at the industrial robotics mechanic microscope, comprehensive manual rescreening by a Faculty Support Coordinator may be required. The Pap Smear is a screening test designed to aid in the detection of premalignant and malignant conditions of the uterine cervix. It is not a diagnostic procedure and should not be used as the sole means of detecting cervical cancer. Both false- positive and false- negative reports do occur. Depending on your risk status, a Pap smear should be obtained and evaluated every 1-3 years. END OF REPORT * ML=Testing performed at Main Lab DEPARTMENT OF PATHOLOGY, [address] [place] [address] Reese Hernandez M.D. Director [facility] # [id number] 33 The high-risk HPV types detected by the assay include: 16, 18, 31, 33, 35, 39, 45, 51, 52, 56, 58, 59, 66, and 68. 34 RESULT: Ectocervical/Endocervical 35 For types 16, 18, 31, 33, 35, 39, 45, 51, 52, 56, 58, 59 and 68. Test Performed by: [address] [address] Market Survey Representative: Alec R. Cockerill, III, M.D. 36 awaiting HPV results 37 RUN DATE: 09/22/12 [facility] LAB LIVE PAGE 1 RUN TIME: [address] [place] [address], [place], [place] [address] Specimen Inquiry Name: EMILIA MUNOZ : [address]: Prerna Royal MD Acct: [id number] Unit: [id number] AGE: 27 Location: [facility] Re09/18/12 SEX: F Status: REG REF SPEC: [id number] SARAH: 09/18/12-[address]: Prerna Royal MD REQ: [id number] RECD: 09/19/12-1259 STATUS: SOUT _ ORDERED: IMAGE ANALYSIS, HPV / Thin Prep FINAL DIAGNOSIS Negative for Intraepithelial lesion or Malignancy COMMENTS: Specimen sent to [facility] in [place], [place] on 09/22/12 by [id number] at 1004. Results will be reported separately. A. Ectocervical/Endocervical Specimen Adequacy: Satisfactory of evaluation Transformation zone component identified Patient Information: HPV: High risk HPV DNA testing regardless of pap results. Actual Specimen Date: 09/18/12 Cautery: N Lesion, grossly demonstrate: N ?: N Post Menopausal?: N Hysterectomy?: N Other Pertinent History: 6 wks post , had C section Signed (signature on file) VERONICA Mcnair (ASCP) 09/22 1530 This Pap test was evaluated with the assistance of the ThinPrep Test Imaging System. Due to cytologic findings at the industrial robotics mechanic microscope, comprehensive manual rescreening by a Faculty Support Coordinator may be required. The Pap Smear is a screening test designed to aid in the detection of premalignant and malignant conditions of the uterine cervix. It is not a diagnostic procedure and should not be used as the sole means of detecting cervical cancer. Both false- positive and false- negative reports do occur. Depending on your risk status, a Pap smear shoudl be obtained and evaluated every 1-3 years. END OF REPORT * ML=Testing performed at Main Lab DEPARTMENT OF PATHOLOGY, [address] [place] [address] Reese Hernandez M.D. Director [facility] Permit #[id number] 38 Anion gap measurement may be of limited value in the presence of any alkalosis, especially in a combined acid base disorder. . 39 A metabolite of Naproxen, O-desmethylnaproxen, has been shown to interfere with the Jendrassik-Baidland method for measuring total bilirubin. Samples from patients who have taken Naproxen have shown spurious elevation in total bilirubin levels. 40 Because ethnic data is not always readily available, this report includes an eGFR for both -Americans and non- Americans. The National Kidney Disease Education Program (NKDEP) does not endorse the use of the MDRD equation for patients that are not between the ages of 18 and 70, are , have extremes of body size, muscle mass, or nutritional status, or are non- or non-. According to the National Kidney Foundation, irrespective of diagnosis, the stage of the disease is based on the level of kidney function: Stage Description GFR(mL/min/1.73 m(2)) 1 Kidney damage with normal or decreased GFR 90 2 Kidney damage with mild decrease in GFR 60-89 3 Moderate decrease in GFR 30-59 4 Severe decrease in GFR 15-29 5 Kidney failure <15 (or dialysis) 41 * MALES: < 5.0 MIU/ML NON FEMALES < 5.0 MIU/ML APPROX GESTATIONAL AGE APPROX HCG RANGE 0-1 WEEK < 5.0-50 1-2 WEEKS 50-500 2-3 WEEKS 100-5000 3-4 WEEKS 500-10,000 1-2 MONTHS 10,000-200,000 2-3 MONTHS 15,000-100,000 PLEASE NOTE: The intended use of this assay is the quantitative determination of HCG in human serum or plasma for the early detection of . These assays should not be used to diagnose any condition unrelated to . If an HCG level is inconsistent with, or unsupported by, clinical evidence, results should be confirmed by an alternate HCG method. . 42 RUN DATE: 12/16/11 [facility] NMI LIVE PAGE 1 RUN TIME: 1544 Specimen Inquiry RUN USER: INTERFACE Name: TERESAAminaEMILIA Status: JUNE CLI Re12/14/11 Age/Sex: 26/F Unit#: [id number] Location: : 81 SPEC #: [id number] SARAH: 12/14/11 STATUS: COMP REQ #: [id number] RECD: 12/14/[address] [facility] [address]: Alex CROSS,Patito SOURCE: URINE ENTR: 12/14/[address]: Lele CROSS,[place] [facility]: ORDERED: URINE C S QUERIES: SPECIMEN DESCRIPTION: URINE, CLEAN CATCH ACT WKST: UR 12/16/11 #1 Procedure Result Verified Site > URINE CULTURE SENSITIVI Final 12/16/11- 1544 ML SPECIMEN CONTAINS NORMAL URETHRAL OR PERINEAL CED AND DOES NOT SUGGEST URINARY TRACT INFECTION ML - [facility] Permit #[id number] [address] [facility] [address] DEPARTMENT OF PATHOLOGY, [facility] DATES [place], [place] [address] [place] Permit #[id number] Reese Hernandez M.D. Director Holley Christina M.D. Date Pitter 43 Recommended INR for Patients on Oral Anticoagulants Prophylaxis 2.0 - 3.0 Treatment of thrombosis 2.0 - 3.0 Prevention of embolism 2.0 - 3.0 Prevention of embolism from prosthetic heart valves 2.5 - 3.5 44 DIAGNOSIS,TREATMENT,AND THERAPY MUST BE BASED ON THE INR VALUE ALONE. 45 CHOLESTEROL INTERPRETATION: Desirable: Less than 200 MG/DL Borderline-High Risk: 200-239 MG/DL High-Risk: 240 MG/DL and over 46 HDL INTERPRETATION: Undesirable: High Risk: Less than 40 MG/DL Desirable: Low Risk: Greater than 60 MG/DL 47 LDL INTERPRETATION: Low Risk Optimal Level: LDL Less than 100 MG/DL Near or Above Optimal: LDL 100-129 MG/DL Borderline High Risk: LDL 130-159 MG/DL High Risk: LDL 160-189 MG/DL Very High Risk: LDL Greater than 189 MG/DL 48 Anion gap measurement may be of limited value in the presence of any alkalosis, especially in a combined acid base disorder. . 49 A metabolite of Naproxen, O-desmethylnaproxen, has been shown to interfere with the Jendrassik-Yodit method for measuring total bilirubin. Samples from patients who have taken Naproxen have shown spurious elevation in total bilirubin levels. 50 Because ethnic data is not always readily available, this report includes an eGFR for both -Americans and non- Americans. The National Kidney Disease Education Program (NKDEP) does not endorse the use of the MDRD equation for patients that are not between the ages of 18 and 70, are , have extremes of body size, muscle mass, or nutritional status, or are non- or non-. According to the National Kidney Foundation, irrespective of diagnosis, the stage of the disease is based on the level of kidney function: Stage Description GFR(mL/min/1.73 m(2)) 1 Kidney damage with normal or decreased GFR 90 2 Kidney damage with mild decrease in GFR 60-89 3 Moderate decrease in GFR 30-59 4 Severe decrease in GFR 15-29 5 Kidney failure <15 (or dialysis) 51 * MALES: < 5.0 MIU/ML NON FEMALES < 5.0 MIU/ML APPROX GESTATIONAL AGE APPROX HCG RANGE 0-1 WEEK < 5.0-50 1-2 WEEKS 50-500 2-3 WEEKS 100-5000 3-4 WEEKS 500-10,000 1-2 MONTHS 10,000-200,000 2-3 MONTHS 15,000-100,000 PLEASE NOTE: The intended use of this assay is the quantitative determination of HCG in human serum or plasma for the early detection of . These assays should not be used to diagnose any condition unrelated to . If an HCG level is inconsistent with, or unsupported by, clinical evidence, results should be confirmed by an alternate HCG method. . 52 ---- RUN DATE: 07/31/10 [facility] NMI LIVE PAGE 1 RUN TIME: 1557 Specimen Inquiry RUN USER: INTERFACE -- Name: EMILIA MUNOZ Status: REG REF Re07/27/10 Age/Sex: 25/F Unit#: [id number] Location: [facility] : 83 -- Specimen: [id number] [facility] Spec Date: 07/27/[address] [facility] [address]: Prerna Royal MD Spec Type: CYTOLOGY Received: 07/31/10 Copies to: SOURCE ECTOCERVICAL/ENDOCERVICAL Thin Prep with Reflex HPV Test PATIENT INFORMATION ACTUAL COLLECTION DATE: 07/27/10 ? No POST MENOPAUSAL? No HYSTERECTOMY? No LAST MENSTRUAL PERIOD: 07/18/10 ADEQUACY OF SPECIMEN Satisfactory for evaluation * Transformation zone component identified * DIAGNOSIS NEGATIVE FOR INTRAEPITHELIAL LESION OR MALIGNANCY * This Pap test was evaluated with the assistance of the [employer] Pap Test Imaging System. The Pap Smear is a screening test designed to aid in the detection of premalign ant and malignant conditions of the uterine cervix. It is not a diagnostic procedure a nd should not be used as the sole means of detecting cervical cancer. Both false- positiv e and false-negative reports do occur. Depending on your risk status, a Pap smear cece uld be obtained and evaluated every one to three years. Initial evaluation performed by Joi GUTIERREZ CT([facility]) 07/31/10 Final Interpretation electronically signed by: Joi GUTIERREZ CT([facility]) 07/31/10 1557 -- -- DEPARTMENT OF PATHOLOGY, [address] [place] [address] [facility] Permit #[id number] Reese Hernandez M.D. Director Holley Christina M.D. Manager Assisted Living Dir moralesor -- 53 SCANT NORMAL URETHRAL OR PERINEAL CED 54 ---- RUN DATE: 07/08/09 [facility] NMI LIVE PAGE 1 RUN TIME: 1455 Specimen Inquiry RUN USER: INTERFACE -- Name: EMILIA LANCE Status: REG REF Re07/07/09 Age/Sex: 24/F Unit#: [id number] Location: [facility] : 83 -- Specimen: [id number] SOUT Spec Date: 07/07/[address]: Prerna Royal MD Spec Type: CYTOLOGY Received: 07/08/09-0857 Copies to: SOURCE ECTOCERVICAL/ENDOCERVICAL Thin Prep with Reflex HPV Test PATIENT INFORMATION ACTUAL COLLECTION DATE: 07/07/09 ? No POST MENOPAUSAL? No HYSTERECTOMY? No PATIENT HISTORY: Last menstrual period Unknown ADEQUACY OF SPECIMEN Satisfactory for evaluation * Transformation zone component identified * DIAGNOSIS NEGATIVE FOR INTRAEPITHELIAL LESION OR MALIGNANCY * Reactive cellular changes associated with * Inflammation (includes typical repair) * This Pap test was evaluated with the assistance of the ThinPrep Pap Test Imaging System. Due to cytologic findings at the industrial robotics mechanic microscope, comprehensive manual rescreening by a Faculty Support Coordinator was required. The Pap Smear is a screening test designed to aid in the detection of premalign ant and malignant conditions of the uterine cervix. It is not a diagnostic procedure a nd should not be used as the sole means of detecting cervical cancer. Both false- positiv e and false-negative reports do occur. Depending on your risk status, a Pap smear cece uld be obtained and evaluated every one to three years. Initial evaluation performed by Rosalinda ASCENCIO(ASCP) 07/08/09 -- DEPARTMENT OF PATHOLOGY, [address] [place] [address] [facility] Permit #[id number] Reese Hernandez M.D. Director Holley Christina M.D. Manager Assisted Living Dir shankar -- -- RUN DATE: 07/08/09 [facility] NMI LIVE PAGE 2 RUN TIME: 1455 Specimen Inquiry RUN USER: INTERFACE -- Name: EMILIA LANCE Status: REG REF Re07/07/09 Age/Sex: 24/F Unit#: [id number] Location: [facility] : 81 -- -- CONTINUED -- Final Interpretation electronically signed by: REESE HERNANDEZ MD 07/08/09 14 55 -- -- DEPARTMENT OF PATHOLOGY, [address] [place] [address] [facility] Permit #[id number] Reese Hernandez M.D. Director Holley Christina M.D. 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 abdominal pain R19.7 Diarrhea, unspecified R12 Heartburn F52.6 Dyspareunia not due to a substance or known physiol cond Office Visit 08/21/2017 3:20p Main Office Jennifer Demarco PA Z00.00 Encntr for general adult medical exam w/o abnormal findings H69.91 Unspecified Eustachian tube disorder, right ear M79.674 Pain in right toe(s) E66.3 Overweight Z71.89 Other specified counseling Z68.39 Body mass index (BMI) 39.0-39.9, adult Office Visit 12/22/2015 2:55p Main Office Jennifer Demarco PA Z00.00 Encntr for general adult medical exam w/o abnormal findings Z12.4 Encounter for screening for malignant neoplasm of cervix Office Visit 10/20/2014 9:30a Main Office Prerna Royal MD V70.0 Examination General Medical Routine AT Health Care Facility 782.8 Skin Texture Changes V76.19 Screening Breast Exam Malignant Neoplasms Other V85.36 Body Mass Index 36.0-36.9, Adult 278.01 Obesity Morbid 795.05 Cervical (HPV) Dna Positive V77.1 Screening Diabetes Mellitus V12.21 Personal History Of Gestational Diabetes Office Visit 04/24/2014 10:45a Main Office Brice Mcneal M.D. 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 Unspec Office Visit 08/31/2013 4:20p Main Office Yumiko Marroquin 611.9 Breast Disorders P.A. 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 Maintenance Examination Office Visit 10/09/2011 10:15a Main Office Prerna Royal MD 309.0 Adjustment Disorder With Depression 278.01 Obesity Morbid 401.1 Hypertension Benign Office Visit 09/18/2011 9:30a Main Office Prerna Royal MD 530.81 Esophageal Reflux V65.49 Counseling Other Spec 278.01 Obesity Morbid 401.1 Hypertension Benign 309.0 Adjustment Disorder With Depression V06.1 Jtublnojwy-Ogblebd-Vbsfietu Combined (DTaP) V70.0 Examination General Medical Routine AT Health Care Facility V07.2 Prophylactic Immunotherapy Office Visit 12/25/2010 2:20p Main Office Yumiko Marroquin, 599.0 UTI Urinary Tract P.A. 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 Lopez (heme/onc) , will be starting Gleevec soon for treatment.Follow up:records release Dr. LopezK58.2 Mixed irritable bowel syndromeNew Medication:Dicyclomine HCL 20 mg - 1 tab by mouth up to three times a day with meals as needed for diarrheaComments :Likely IBS. Discussed that sx can be aggravated by stress and/or diet. Rx for dicyclomine to manage diarrhea. Pt will work on elimination diet, starting w dairy. Watch for food triggers. Recheck if sx not improving.R12 HeartburnNew Medication:Omeprazole 20 mg - 1 cap by mouth every day for heartburnComments:Rx for omeprazole for GERD sx.F41.9 Anxiety disorder, unspecifiedComments: Discussed current stressors. Pt will continue prn ativan.
[2018-03-21 15:06] VITALS: BP 141/93
--- NOTE | 2018-03-21 16:58 | UC ---
UC General HPI - HPI Summary HPI Summary: Complains of numbness and tingling in bilateral fingers and hands mostly on the ulnar side. Symptoms started last night. No trauma. Patient reports symptoms are worse when she is resting her arm. While she describes this to me she demonstrates by flexing her arm and leaning her elbow on the armrest. She also feels some intermittent tingling in her legs. Patient was diagnosed with CML 2 months ago and has been undergoing chemotherapy. She has a great deal of anxiety and stress about this diagnosis. Patient is tearful. - History of Current Complaint Chief Complaint: UCGeneralIllness Stated Complaint: FINGER NUMBNESS Time Seen by Provider: 03/21/18 16:06 Hx Obtained From: Patient, Family/Air Turning Machine Feeder - Hx Last Menstrual Period: no periods Onset/Duration: Sudden Onset, Lasting Hours, Still Present Timing: Constant Onset Severity: Mild Current Severity: Mild Pain Intensity: 1 - Allergy/Home Medications Allergies/Adverse Reactions: Allergies Allergy/AdvReac Type Severity Reaction Status Date / Time No Known Allergies Allergy Verified 03/21/18 14:58 Home Medications: Home Medications Amoxicillin PO (*) [Amoxicillin 875 MG (*)] 875 mg PO BID 03/21/18 [History Confirmed 03/21/18] Imatinib Mesylate 400 mg PO DAILY 03/21/18 [History Confirmed 03/21/18] PMH/Surg Hx/FS Hx/Imm Hx Other Cancer History: CML - Surgical History Surgical History: Yes Surgery Procedure, Year, and Place: 2012 - Social History Alcohol Use: Rare Substance Use Type: None Smoking Status (MU): Never Smoked Tobacco Review of Systems Constitutional: Negative Skin: Negative Respiratory: Negative Cardiovascular: Negative Gastrointestinal: Negative Neurological: Paresthesia Psychological: Anxious All Other Systems Reviewed And Are Negative: Yes Physical Exam Triage Information Reviewed: Yes Appearance: No Pain Distress, Well-Nourished, Other: - pt tearful and anxious Vital Signs: Initial Vital Signs Temp 99.1 F 03/21/18 15:00 Pulse 111 03/21/18 15:00 Resp 16 03/21/18 15:00 BP 141/93 03/21/18 15:00 Pulse Ox 100 03/21/18 15:00 Vital Signs Reviewed: Yes Eyes: Positive: Conjunctiva Clear ENT: Positive: Hearing grossly normal Neck: Positive: Supple Respiratory: Positive: No respiratory distress, No accessory muscle use Cardiovascular: Positive: Pulses Normal Abdomen Description: Positive: Soft Musculoskeletal: Positive: ROM Intact, No Edema Neurological: Positive: Alert, Other: - neg tinel/phalens (median nerve bilaterally). possible worsening of sx with tapping left ulnar groove Psychological: Positive: Age Appropriate Behavior Skin: Negative: rashes Course/Dx - Differential Dx - Multi-Symptom Provider Diagnoses: PARESTHESIAS Discharge - Sign-Out/Discharge Documenting (check all that apply): Patient Departure All imaging exams completed and their final reports reviewed: No Studies - Discharge Plan Condition: Stable Disposition: HOME Patient Education Materials: Paresthesia (ED) Referrals: Candelario Cote MD [Medical Doctor] - 3 Days Jennifer Kim [Primary Care Provider] - 3 Days Additional Instructions: UNCLEAR ETIOLOGY OF YOUR SYMPTOMS. MAY BE MULTIFACTORIAL IN NATURE. YOU MAY HAVE A STRAIGHTFORWARD ULNAR NERVE PALSY. TRY NOT TO LEAN ON YOUR ELBOWS. STRETCHING AND RANGE OF MOTION EXERCISES DAILY. ALSO CONSIDER PERIPHERAL NEUROPATHY SECONDARY TO VITAMIN DEFICIENCY. YOUR SYMPTOMS MAY ALSO BE CONTRIBUTED TO BY ANXIETY/EMOTIONAL DISTRESS AND POSSIBLE HYPERVENTILATION AT TIMES. FOLLOW-UP WITH YOUR PCP AND NEUROLOGY FOR FURTHER EVALUATION. GO TO THE ED WITHOUT FAIL IF YOU DEVELOP WORSENING PAIN, FOCAL WEAKNESS, SWELLING OR ANY OTHER CONCERNING SYMPTOMS. - Billing Disposition and Condition Condition: STABLE Disposition: Home
== END 2018-03-21 17:07 | disposition home or self-care (01) ==
LOC: UCEAST 13:52
DX: R20.2 Paresthesia of skin (principal)
CPT/HCPCS: 99211; G0463

== ENCOUNTER → 2018-03-25 16:03 | Emergency (ER) | payer OTHER ==
[2018-03-25 17:17] LABS: ABS Basophils 0.2 10^3/ul (0-0.2); ABS Eosinophils 0 10^3/ul (0-0.6); ABS Lymphocytes 1.3 10^3/ul (1.0-4.8); ABS Monocytes 0.3 10^3/ul (0-0.8); ABS Neutrophils 8.9 10^3/ul (1.5-7.7); ABS Nucleated RBC 0 10^3/ul; Eosinophil % 0.2 % (0-6); Hematocrit 34 % (35-47); Hemoglobin 11.4 g/dl (12.0-16.0); Lymphocyte % 12.2 % (25-47); Mean Corpuscular HGB Conc 33 g/dl (31-36); Mean Corpuscular Hemoglobin 29 pg (27-31); Mean Corpuscular Volume 86 fL (80-97); Mean Platelet Volume 8.4 fL (7.4-10.4); Nucleated Red Blood Cells % 0; Platelet Count 435 10^3/ul (150-450); Red Blood Count 3.97 10^6/ul (4.00-5.40); Red Cell Distribution Width 16 % (10.5-15); White Blood Count 10.7 10^3/ul (3.5-10.8)
--- NOTE | 2018-03-25 17:22 | ED ---
Neurological HPI - HPI Summary HPI Summary: The pt is a 33 y/o female with a Mhx of leukemia presenting to [facility] c/o constant diffuse numbness and tingling pronounced in the face and bilateral UEs since 4 days ago worsened today. She notes fatigue, chronic muscle, joint and bone pain, light headedness, and anxiety. She denies vision changes, difficulty ambulating, neck pain, CP, N/V/D, rash, and joint swelling .The pt takes Gleevac and is concerned whether it is a side effect of the same. She was seen at [facility] today and discharged with a dx of paresthesia. Dr. Jessica MD is her oncologist. - History of Current Complaint Chief Complaint: EDNeurologicalDeficit Stated Complaint: NUMBNESS Time Seen by Provider: 03/25/18 17:13 Hx Obtained From: Patient, Family/Behaviour Support Teacher Hx Last Menstrual Period: no periods Onset/Duration: Started days ago - 2 days Timing: Constant Number of Seizures: 0 Pain Intensity: 0 Pain Scale Used: 0-10 Numeric Character: Lightheaded, Numbness/Tingling Number of Episodes: 0 Associated Signs and Symptoms: Positive: Anxiety. Negative: Nausea/Vomiting, Chest Pain - Allergy/Home Medications Allergies/Adverse Reactions: Allergies Allergy/AdvReac Type Severity Reaction Status Date / Time No Known Allergies Allergy Verified 03/25/18 16:19 PMH/Surg Hx/FS Hx/Imm Hx Previously Healthy: No Endocrine/Hematology History: Denies: Hx Diabetes History: Reports: Hx Kidney Infection - kidney stones hx Sensory History: Denies: Hx Deafness Neurological History: Denies: Hx CVA, Hx Dementia, Hx Developmental Delay, Hx Headaches, Hx Migraine, Hx Nerve Disease, Hx Peripheral Neuropathy, Hx Seizures, Hx Spinal Cord Injury, Hx Transient Ischemic Attacks (TIA), Hx CVP, Other Neuro Impairments/Disorders - Cancer History Cancer Type, Location and Year: Leukemia Date and Location of Last Treatment: Currently takes Gleevac - Surgical History Surgery Procedure, Year, and Place: 2012 Infectious Disease History: No Infectious Disease History: Denies: Traveled Outside the [place] in Last 30 Days - Family History Known Family History: Positive: Cardiac Disease - [place] , Hypertension, Other - Spinal bifida- grandfather - Social History Occupation: Employed Full-time Lives: With Family Alcohol Use: Rare Substance Use Type: Reports: None Smoking Status (MU): Never Smoked Tobacco Review of Systems Constitutional: Other - Positive: Lightheadedness Positive: Fatigue Eyes: Negative - Visual changes ENT: Negative - Neck pain Negative: Chest Pain Negative: Vomiting, Diarrhea, Nausea Musculoskeletal: Negative - Difficulty ambulating, joint swelling , Other - Positive: Bone pain Positive: Arthralgia, Myalgia Negative: Rash Neurological: Other - Positive: Tingling Positive: Paresthesia, Numbness Positive: Anxious All Other Systems Reviewed And Are Negative: Yes Physical Exam - Summary Physical Exam Summary: Appearance: Well-appearing, Well-nourished, lying in bed comfortably Skin: Warm, dry, no obvious rash Eyes: sclera anicteric, no conjunctival pallor ENT: mucous membranes moist, pharynx appears normal Neck: Supple, nontender Respiratory: Clear to auscultation, no signs of respiratory distress Cardiovascular: Normal S1, S2. No murmurs. Normal distal pulses in tibial and radial bilaterally. Abdomen: Soft, nontender, normal active bowel sounds present Musculoskeletal: Normal, Strength/ROM Intact, Motor function in all 4 extremities is normal and symmetric. There is no rigidity or tremor noted. Neurological: A&Ox3, awake and alert, mentation is normal, speech is fluent and appropriate, Level of consciousness nml. The patient is alert and oriented. Cranial nerves are grossly intact. Gaze is conjugate and without nystagmus. Peripheral vision is intact to confrontation. There are no gross sensory abnormalities to light touch. There is no truncal or fine motor ataxia. Gait is normal. Psychiatric: affect is normal, does not appear anxious or depressed Triage Information Reviewed: Yes Vital Signs On Initial Exam: Initial Vitals Temp Pulse Resp BP Pulse Ox 98.3 F 87 19 155/81 99 03/25/18 16:16 03/25/18 16:16 03/25/18 16:16 03/25/18 16:16 03/25/18 16:16 Vital Signs Reviewed: Yes Diagnostics - Vital Signs Vital Signs Temp Pulse Resp BP Pulse Ox 03/25/18 16:16 98.3 F 87 19 155/81 99 - Laboratory Lab Results: Lab Results 03/25/18 Range/Units 17:05 WBC 10.7 (3.5-10.8) 10^3/ul RBC 3.97 L (4.00-5.40) 10^6/ul Hgb 11.4 L (12.0-16.0) g/dl Hct 34 L (35-47) % MCV 86 (80-97) fL MCH 29 (27-31) pg MCHC 33 (31-36) g/dl RDW 16 H (10.5-15) % Plt Count 435 (150-450) 10^3/ul MPV 8.4 (7.4-10.4) fL Neut % (Auto) 83.5 H (38-83) % Lymph % (Auto) 12.2 L (25-47) % [place] % (Auto) 2.6 (0-7) % Eos % (Auto) 0.2 (0-6) % Baso % (Auto) 1.5 (0-2) % Absolute Neuts (auto) 8.9 H (1.5-7.7) 10^3/ul Absolute Lymphs (auto) 1.3 (1.0-4.8) 10^3/ul Absolute Monos (auto) 0.3 (0-0.8) 10^3/ul Absolute Eos (auto) 0 (0-0.6) 10^3/ul Absolute Basos (auto) 0.2 (0-0.2) 10^3/ul Absolute Nucleated RBC 0 10^3/ul Nucleated RBC % 0 Result Diagrams: 03/25/18 17:05 03/25/18 17:05 Lab Statement: Any lab studies that have been ordered have been reviewed, and results considered in the medical decision making process. NIH Scale - NIH Scale Level of Consciousness: Alert/Keenly Responsive Ask Patient the Month and His/Her Age: Both Correct Ask Pt to Open/Close Eyes and Field Service Specialist/Release Non-Paretic Hand: Both Correctly Best Gaze (Only Horizontal Eye Movement): Normal Visual Field Testing: No Visual Loss Facial Paresis-Pt to Smile & Close Eyes or Grimace Symmetry: Normal/Symmetrical Motor Function - Right Arm: No Drift-Holds 10 Seconds Motor Function - Left Arm: No Drift-Holds 10 Seconds Motor Function - Right Leg: No Drift-Holds 10 Seconds Motor Function - Left Leg: No Drift-Holds 10 Seconds Limb Ataxia-Must be out of Proportion to Weakness Present: Absent Sensory (Use Pinprick to Test Arms/Legs/Trunk/Face): Normal Best Language (Describe Picture, Name Items): No Aphasia Dysarthria (Read Several Words): Normal Extinction and Inattention: No Abnormality Total Score: 0 Course/Dx - Course Course Of Treatment: A 33 year-old F with a Mhx of leukemia presents to the ED with a CC of constant diffuse numbness and tingling pronounced in the face and bilateral UEs since 4 days ago worsened today. She notes fatigue, chronic muscle , joint and bone pain, light headedness, and anxiety. She denies visual changes , difficulty ambulating, neck pain, CP, N/V/D, rash, and joint swelling. A physical exam is unremarkable. Patient will be discharged with a final Dx of paresthesia. Pt is agreeable with this plan. Allergies noted. - Diagnoses Provider Diagnoses: Paresthesia Discharge - Sign-Out/Discharge Documenting (check all that apply): Patient Departure - DC - Discharge Plan Condition: Good Disposition: HOME Patient Education Materials: Paresthesia (ED) Referrals: Galo Lopez MD [Medical Doctor] - - Billing Disposition and Condition Condition: GOOD Disposition: Home - Attestation Statements Document Initiated by Scribe: Yes Documenting Scribe: Valentine Chino Provider For Whom Jan is Documenting (Include Credential): Dr. Marcelo Rios MD Scribe Attestation: Valentine Lagunas scribed for Dr. Marcelo Rios MD on 03/31/18 at 0842. Scribe Documentation Reviewed: Yes Provider Attestation: The documentation as recorded by the eleuterioibeValentine accurately reflects the service I personally performed and the decisions made by me, Dr. Marcelo Rios MD
[2018-03-25 17:33] LABS: EGFR Non-African American 86.6 (>60)
[2018-03-25 18:05] LABS: Urine Appearance Clear; Urine Blood 3+ (Negative); Urine Color Straw; Urine Ketones Negative (Negative); Urine Protein Negative (Negative); Urine Red Blood Cell Trace(0-2/hpf) (Absent); Urine Specific Gravity 1.004 (1.010-1.030); Urine Urobilinogen Negative (Negative); Urine White Blood Cell Trace(0-5/hpf) (Absent)
[2018-03-25 18:21] VITALS: BP 126/72
== END | disposition home or self-care (01) ==
LOC: ED 16:03
DX: R20.2 Paresthesia of skin (principal); F41.9 Anxiety disorder, unspecified; C95.90 Leukemia, unspecified not having achieved remission
CPT/HCPCS: 36415; 80053; 81003; 81015; 82803; 83735; 84100; 85025; 86140; 87086; 99282

== ENCOUNTER 2018-07-08 17:28 | Observation (INO) | payer OTHER ==
--- NOTE | 2018-07-08 17:41 | ED ---
Abdominal Pain/Female - HPI Summary HPI Summary: Pt is a 33 y/o female who presents to the ED c/o abdominal pain. She was sent here by her PCP to rule out appendicitis. Pt began to have sudden severe abdominal pain yesterday at 14:00 accompanied by nausea and chills which have since resolved. The abdominal pain has gotten better and is now rated a 5/10 in severity. The pain is located in her RLQ and right pelvis. Pain is made better with walking and made worse with palpation and sudden movement. Pt denies any hematuria, burning with urination, fever, vomiting, CP, back pain, leg pain, or vaginal discharge. She denies any hx of ovarian cysts. Pt does not menstruate because of her IUD. PMHx CML. - History of Current Complaint Stated Complaint: ABD PAIN Hx Obtained From: Patient Hx Last Menstrual Period: no periods Onset/Duration: Gradual Onset, Lasting Days - 1, Still Present Timing: Constant Severity Currently: Moderate Pain Intensity: 5 Pain Scale Used: 0-10 Numeric Location: Discrete At: RLQ, Other - right pelvic Radiates: No Aggravating Factor(s): Movement, Other: - palpation Alleviating Factor(s): Other: - walking Associated Signs and Symptoms: Positive: Nausea. Negative: Fever, Urinary Symptoms, Vaginal Discharge, Vomiting Allergies/Adverse Reactions: Allergies Allergy/AdvReac Type Severity Reaction Status Date / Time No Known Allergies Allergy Verified 03/25/18 16:19 PMH/Surg Hx/FS Hx/Imm Hx Endocrine/Hematology History: Denies: Hx Diabetes History: Reports: Hx Kidney Infection - kidney stones hx Sensory History: Denies: Hx Deafness Neurological History: Denies: Hx CVA, Hx Dementia, Hx Developmental Delay, Hx Headaches, Hx Migraine, Hx Nerve Disease, Hx Peripheral Neuropathy, Hx Seizures, Hx Spinal Cord Injury, Hx Transient Ischemic Attacks (TIA), Other Neuro Impairments/ Disorders - Cancer History Cancer Type, Location and Year: Leukemia Hx Chemotherapy: No - Surgical History Surgery Procedure, Year, and Place: 2012 Infectious Disease History: No Infectious Disease History: Denies: Traveled Outside the [place] in Last 30 Days - Family History Known Family History: Positive: Cardiac Disease - [place] , Hypertension, Other - Spinal bifida- grandfather - Social History Alcohol Use: Rare Hx Substance Use: No Substance Use Type: Reports: None Hx Tobacco Use: No Smoking Status (MU): Never Smoked Tobacco Review of Systems Positive: Chills. Negative: Fever Negative: Chest Pain Positive: Abdominal Pain, Nausea. Negative: Vomiting Negative: burning, discharge, hematuria Positive: Other - right pelvic pain. Negative: Myalgia - back, leg All Other Systems Reviewed And Are Negative: Yes Physical Exam - Summary Physical Exam Summary: Appearance: Well appearing, no pain distress Skin: warm, dry, reflects adequate perfusion Head/face: normal Eyes: EOMI, ANANYA ENT: mucous membranes moist Neck: supple, non-tender Respiratory: CTA, breath sounds present Cardiovascular: RRR, pulses symmetrical Abdomen: soft, negative obturators sign, negative psoas sign, mild-moderate tenderness of RLQ at McBurneys point, no rebound or guarding Bowel Sounds: present Musculoskeletal: normal, strength/ROM intact Neuro: normal, sensory motor intact, A&Ox3, normal gait Triage Information Reviewed: Yes Vital Signs On Initial Exam: Initial Vitals Temp Pulse Resp BP Pulse Ox 99.7 F 114 18 167/105 100 07/08/18 17:33 07/08/18 17:33 07/08/18 17:33 07/08/18 17:33 07/08/18 17:33 Vital Signs Reviewed: Yes Diagnostics - Vital Signs Vital Signs Temp Pulse Resp BP Pulse Ox 07/08/18 17:33 99.7 F 114 18 167/105 100 - Laboratory Result Diagrams: 07/08/18 17:51 07/08/18 17:51 Lab Statement: Any lab studies that have been ordered have been reviewed, and results considered in the medical decision making process. Abdominal Pain Fem Course/Dx - Course Course Of Treatment: Nurse's notes reviewed. Patient with right lower quadrant pain. Normal WBC but elevated CRP. Some bacteria in the urine with inflammatory cells. Awaiting CT scan result. Physician assistant oceanographer will obtain result and make disposition. - Diagnoses Provider Diagnoses: RLQ abdominal pain Discharge - Sign-Out/Discharge Documenting (check all that apply): Sign-Out Patient Signing out patient TO: Alexandro Pastor - Discharge Plan Referrals: Dav BANSAL,Jennifer Dhaliwal [Primary Care Provider] - - Attestation Statements Document Initiated by Scribe: Yes Documenting Scribe: Kimmie Garza Provider For Whom Scribe is Documenting (Include Credential): Kevin Cisneros MD Scribe Attestation: I, Kimmie Garza, scribed for Kevin Cisneros MD on 07/08/18 at 1847. Scribe Documentation Reviewed: Yes Provider Attestation: The documentation as recorded by the scribeKimmie accurately reflects the service I personally performed and the decisions made by me, Kevin Cisneros MD Status of Scribe Document: Viewed
[2018-07-08 17:53] LABS: Urine Appearance Cloudy; Urine Bacteria 1+ (Absent); Urine Bilirubin Negative (Negative); Urine Blood Negative (Negative); Urine Color Yellow; Urine Glucose Negative (Negative); Urine Ketones 1+ (Negative); Urine Nitrite Negative (Negative); Urine Protein Negative (Negative); Urine Red Blood Cell 1+(3-5/hpf) (Absent); Urine Specific Gravity 1.018 (1.010-1.030); Urine Squamous Epithelial Cell Present (Absent); Urine Urobilinogen Negative (Negative); Urine White Blood Cell 1+(6-10/hpf) (Absent)
[2018-07-08] MEDS ORDERED: Iodixanol* (CONTRAST) 320 MG/ML 100 ML SDV IV ONE (18:00)
[2018-07-08 18:08] LABS: ABS Basophils 0 10^3/ul (0-0.2); ABS Eosinophils 0 10^3/ul (0-0.6); ABS Lymphocytes 1.8 10^3/ul (1.0-4.8); ABS Monocytes 0.6 10^3/ul (0-0.8); ABS Neutrophils 7.7 10^3/ul (1.5-7.7); ABS Nucleated RBC 0 10^3/ul; Eosinophil % 0.2 %; Hematocrit 35 % (35-47); Hemoglobin 11.9 g/dl (12.0-16.0); Lymphocyte % 17.8 %; Mean Corpuscular HGB Conc 34 g/dl (31-36); Mean Corpuscular Hemoglobin 29 pg (27-31); Mean Corpuscular Volume 85 fL (80-97); Mean Platelet Volume 8.1 fL (7.4-10.4); Nucleated Red Blood Cells % 0; Platelet Count 216 10^3/ul (150-450); Red Blood Count 4.16 10^6/ul (4.00-5.40); Red Cell Distribution Width 20 % (10.5-15); White Blood Count 10.1 10^3/ul (3.5-10.8)
--- OUTSIDE RECORDS SUMMARY | 2018-07-08 18:08 | XMS REPORT | Continuity of Care Document ---
:1985 External Reference #:[id number] Author Name David Guerrero D.O. Address [address] [place] [id number] Care Team Providers Name Role Phone HCP given Primary Care Physician Unavailable Payers Date Identification Numbers Payment Provider Subscriber Expires: 2017 Policy Number: [id number] [employer]atre[employer]ess[employer] Name: [id number] PayID: [id number] [place] [address] Effective: 2017 Policy Number: [id number] [facility]/Latrello Pardeepstaci Munoz PayID: [id number] [address] [address] [place] [address] Advance Directives Description No Information Available Problems Date Description Provider Status Onset: 09/18/2011 Morbid obesity Prerna Royal MD Active Onset: 09/18/2012 Personal History Of Gestational Diabetes Prerna Royal MD Active Onset: 10/20/2014 Abnormal cervical Papanicolaou smear with Prerna Royal MD Active positive human papillomavirus deoxyribonucleic acid test Onset: 08/21/2017 Overweight Jennifer Demarco PA Active Onset: 02/05/2018 Chronic myeloid leukemia Jennifer Demarco PA Active Onset: 02/05/2018 Irritable bowel syndrome characterized by Jennifer Demarco PA Active alternating bowel habit Onset: 02/05/2018 Anxiety state Jennifer Demarco PA Active Family History Date Family Member(s) Observation Comments Father 1961.high bp, obesity Mother 1961 htn and obesity. fibroids/ten for menorrhagia Text Input 2 brothers(youngerx1 ) and one sister.great MGM with coloncancer. mom with neg screen to date. 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 wine Recreational Drug Use Denies Drug Use Tobacco Use Start: Unknown Non Smoker Smoking Status Reviewed: 07/08/18 Non Smoker Exercise Type/Frequency Exercises regularly runner Sun Exposure Uses sunscreen Guns in Home No Smoke Alarms Yes smoke alarm Currently Active Patient is currently sexually active Contraceptive Methods IUD Mirena STD's HPV Allergies, Adverse Reactions, Alerts Description No Known Drug Allergies Medications Medication Date Status Form Strength Qnty SIG Indications Ordering Provider Imatinib 06/11 Active Tablets 400mg Take Two Garbo, Mes Tablets By Stephanie Rosenthal MD With A Meal And A Glass Of Water Cyclobenzaprine 04/21 Active Tablets 5mg 30tab 1 tab by Cesar HCL s mouth every David, night for D.O. jaw pain. will make you drowsy Venlafaxine HCL 03/28 Active Tablets ER 37.5mg Unknown 24HR Hyoscyamine 03/12 Active Tablets 0.125mg 90tab 1 tab po K58.2 Silcoff, Sulfate s tid prn for GABY Narvaez M.D. symptoms Ativan 01/10 Active Tablets 0.5mg 45tab take 1/2 to Silpia s 1 tablet by stephanie Narvaez up to M.D. 3 tablets per day as needed when anxiety is severe maximum daily dose of 3 per day Multivitamin 12/20 Active Tablets 1 by mouth Unknown every day Mirena (52 MG) Active IUD 20mcg/24H R Amoxicillin/Clav 03/17 Hx Tablets 875-125mg 20tab 1 tab by jaison Mcneal s mouth twice Brice Potassium - a day x10 M.D. Dicyclomine HCL 02/05 Hx Tablets 20mg 90tab 1 tab by K58.2 Lindseycojimmie, /2017 s mouth up to Brice, - three times M.D. 03/11 a day with meals as needed for diarrhea Omeprazole 02/[address] 20mg 30cap 1 cap by R12 Elizabet, s mouth every Brice, - day for M.D. 03/11 heartburn Tamiflu 07/15 Hx Capsules 75mg 10cap 1 by mouth s once a day A. - Winter, 07/24 M.D. No Active 10/20 Hx Unknown Medications /2014 - 07/15 Benzonatate 04/24 Hx Capsules 100mg 30cap 1-2 by 786.2 Elizabet, s mouth three Brice, - times a day M.D. 05/08 as needed for cough Symbicort 04/24 Hx Aerosol 80-4.5mcg 1samp 2 puffs 786.2 Lindseycojimmie, /Act le 2x/day; Brice - garjanette M.D. 05/08 after use Ciprofloxacin 11/23 Hx Tablets 250mg 6tabs 1 tab by 599.0 Elizabet, HCL mouth twice Brice, - a day x 3 M.D. 11/26 Phenazopyridine 11/23 Hx Tablets 200mg 6tabs 1 tab by 599.0 Elizabet HCL mouth three Brice, - times a M.D. 12/24 day, as needed Azithromycin 10/14 Hx Tablets 250mg 6tabs 2 tab po on 786.2 Lele, day one Prerna CROSS - then one 11/20 tab daily 4more days prn for your respiratory infection Fluticasone 10/14 Hx Suspension 50mcg/Act 3unit 2 sprays 786.2 Lele Propionate s into each Prerna CROSS - nostril qd 11/14 for nasal congestion. takes 2 days for effect. use for a week. rinse mouth post Dicloxacillin 08/31 Hx Capsules 500mg 40cap 1 cap po 611.9 Silcojimmie Sodium s qid x 10 Brice, - days M.D. 09/10 Medela Double 04/02 Hx 1unit use as Lele Breast Pump s needed for Prerna CROSS - adequate 10/14 milk supply for your baby. Bupropion HCL XL 10/08 Hx Tablets ER 300mg 90tab take 1 309.0 Lele 24HR s tablet Prerna CROSS - every 11/17 Prilosec 09/[address] 20mg 180ca 1 tab po 530.81 ps daily. can Prerna CROSS - use bid 09/17 prn. Prozac 09/17 Hx Capsules 20mg 90cap one po in 309.0 s am . Prerna CROSS - 09/17 Pantoprazole 09/[address] 20mg 90tab one tab po 530.81 Lele, s daily for Prerna CROSS - your reflux 01/04 symtpoms instead of the omepazole as is safer Bupropion HCL XL 09/17 Hx Tablets ER 150mg 60tab 1 tablet 309.0 Lele 24HR s every Prerna CROSS - morning for 10/08 3 days and then change to 300mg or 2 tab qam. when run out fill script for 300 mg 09/16 Hx Tablets 0.8mg otc one tablet Unknown po daily - 10/16 Nitrofurantoin 12/25 Hx Capsules 100mg 28cap 1 tab po 599.0 Elizabet, s qid x 7 Brice, - days M.D. 01/01 Multi Vitamin 07/27 Hx Tablets Prerna CROSS - 09/16 Cipro 02/10 Hx [...] CPT Code Status Date Vaccine Lot # [id number] Given 09/18/2011 Adacel or Boostrix, [id number] Vital Signs Date Vital Result Comment 07/08/2018 2:23pm BP Systolic 130 mmHg BP Diastolic 68 mmHg Weight 283.00 lb 04/21/2018 2:42pm BP Systolic 142 mmHg BP Diastolic 80 mmHg Body Temperature 98.7 F 03/12/2018 9:19am BP Systolic 140 mmHg BP [...] Mass Index) 32.2 kg/m2 Last Menstrual Period [id number] 10/20/2014 9:40am BP Systolic 124 mmHg BP [...] Mass Index) 42.1 kg/m2 Last Menstrual Period [id number] IUD 09/04/2013 3:59pm BP Systolic 116 mmHg [...] Mass Index) 44.8 kg/m2 Last Menstrual Period [id number] 12/25/2010 2:26pm BP Systolic 120 mmHg BP Diastolic 60 mmHg Body Temperature 98.2 F Weight 266.00 lb 07/27/2010 3:46pm BP Systolic 138 mmHg BP Diastolic 80 mmHg Height 68.50 inches 5'8.50" Weight 273.00 lb BMI (Body Mass Index) 40.9 kg/m2 Last Menstrual Period [id number] 02/10/2010 1:37pm BP Systolic 116 mmHg BP Diastolic 71 mmHg Heart Rate 68 /min Body Temperature 98.5 F Height 68.5 inches 5'8.50" Weight 280.00 lb BMI (Body Mass Index) 42.0 kg/m2 Last Menstrual Period [id number] 07/07/2009 10:25am BP Systolic 130 mmHg BP Diastolic 78 mmHg Weight 263.00 lb Last Menstrual Period 0 12/30/2008 1:59pm BP Systolic 140 mmHg my readings 120/80 both arms. BP Diastolic 82 mmHg my readings 120/80 both arms. Height 68.5 inches 5'8.50" Weight 258.00 lb BMI (Body Mass Index) 38.7 kg/m2 Last Menstrual Period [id number] Results Test Date Facility Test Result H/L Range Note BCR/Abl P210 [facility] BCR/Abl p210 see interpretati 1 PCR [phone] Result <SEE NOTE> BCR/Abl PCR Specimen Blood BCR/Abl p210 Final Diagnosis See Comment 2 CBC Auto Diff 06/13/2018 [facility] White Blood Count 6.3 10^3/uL N 3.5-10.8 [phone] Red Blood Count 4.69 10^6/uL N 4.00-5.40 Hemoglobin 12.8 g/dL N 12.0-16.0 Hematocrit 39 % N 35-47 Mean Corpuscular Volume 83 fL N 80-97 Mean Corpuscular Hemoglobin 27 pg N 27-31 Mean Corpuscular HGB Conc 33 g/dL N 31-36 Red Cell Distribution Width 18 % High 10.5-15 Platelet Count 221 10^3/uL N 150-450 Mean Platelet Volume 8.9 fL N 7.4-10.4 Abs Neutrophils 4.0 10^3/uL N 1.5-7.7 Abs Lymphocytes 1.8 10^3/uL N 1.0-4.8 Abs Monocytes 0.4 10^3/uL N 0-0.8 Abs Eosinophils 0.1 10^3/uL N 0-0.6 Abs Basophils 0 10^3/uL N 0-0.2 Abs Nucleated RBC 0 10^3/uL Granulocyte % 63.7 % Lymphocyte % 28.5 % Monocyte % 5.9 % Eosinophil % 1.1 % Basophil % 0.8 % Nucleated Red Blood Cells % 0 CBC Auto Diff 05/23/2018 [facility] White Blood Count 6.3 10^3/uL N 3.5-10.8 [phone] Red Blood Count 4.73 10^6/uL N 4.00-5.40 Hemoglobin 13.0 g/dL N 12.0-16.0 Hematocrit 39 % N 35-47 Mean Corpuscular Volume 83 fL N 80-97 Mean Corpuscular Hemoglobin 28 pg N 27-31 Mean Corpuscular HGB Conc 33 g/dL N 31-36 Red Cell Distribution Width 17 % High 10.5-15 Platelet Count 248 10^3/uL N 150-450 Mean Platelet Volume 8.6 fL N 7.4-10.4 Abs Neutrophils 4.0 10^3/uL N 1.5-7.7 Abs Lymphocytes 1.8 10^3/uL N 1.0-4.8 Abs Monocytes 0.3 10^3/uL N 0-0.8 Abs Eosinophils 0.1 10^3/uL N 0-0.6 Abs Basophils 0 10^3/uL N 0-0.2 Abs Nucleated RBC 0 10^3/uL Granulocyte % 64.4 % Lymphocyte % 28.4 % Monocyte % 5.4 % Eosinophil % 1.1 % Basophil % 0.7 % Nucleated Red Blood Cells % 0 Comp Metabolic Panel 05/23/2018 [facility] Sodium 138 mmol/L N 135- 145 [phone] Potassium 4.4 mmol/L N 3.5-5.0 Chloride 107 mmol/L N 101-111 Co2 Carbon Dioxide 26 mmol/L N 22-32 Anion Gap 5 mmol/L N 2-11 Glucose 130 mg/dL High 70-100 Blood Urea Nitrogen 9 mg/dL N 6-24 Creatinine 0.70 mg/dL N 0.51-0.95 BUN/Creatinine Ratio 12.9 N 8-20 Calcium 8.6 mg/dL N 8.6-10.3 Total Protein 6.6 g/dL N 6.4-8.9 Albumin 3.8 g/dL N 3.2-5.2 Globulin 2.8 g/dL N 2-4 Albumin/Globulin Ratio 1.4 N 1-3 Total Bilirubin 0.60 mg/dL N 0.2-1.0 Alkaline Phosphatase 60 U/L N 34-104 Alt 23 U/L N 7-52 Ast 23 U/L N 13-39 Egfr Non- 95.2 >60 Egfr 115.2 >60 3 BCR/Abl Trans 9:22 05/23/2018 [facility] BCR/abl (Fish) Result Abnormal Fish [phone] Summary BCR/abl (Fish) Result Table See Comment 4 BCR/abl (Fish) Specimen Blood BCR/abl (Fish) Referral Reason See Comment 5 BCR/abl (Fish) Method See Comment 6 BCR/abl Results See Comment 7 BCR/abl (Fish) Interpretation See Comment 8 BCR/abl (Fish) Additional Info See Comment 9 BCR/abl (Fish) Disclaimer See Comment 10 BCR/abl (Fish) Released By See Comment 11 CBC Auto Diff 04/04/2018 [facility] White Blood Count 8.2 10^3/uL N 3.5-10.8 [phone] Red Blood Count 4.23 10^6/uL N 4.00-5.40 Hemoglobin 11.9 g/dL Low 12.0-16.0 Hematocrit 36 % N 35-47 Mean Corpuscular Volume 85 fL N 80-97 Mean Corpuscular Hemoglobin 28 pg N 27-31 Mean Corpuscular HGB Conc 33 g/dL N 31-36 Red Cell Distribution Width 15 % N 10.5-15 Platelet Count 287 10^3/uL N 150-450 Mean Platelet Volume 9.1 fL N 7.4-10.4 Abs Neutrophils 6.4 10^3/uL N 1.5-7.7 Abs Lymphocytes 1.4 10^3/uL N 1.0-4.8 Abs Monocytes 0.3 10^3/uL N 0-0.8 Abs Eosinophils 0.1 10^3/uL N 0-0.6 Abs Basophils 0.1 10^3/uL N 0-0.2 Abs Nucleated RBC 0 10^3/uL Granulocyte % 77.8 % N 38-83 Lymphocyte % 17.0 % Low 25-47 Monocyte % 3.6 % N 0-7 Eosinophil % 0.8 % N 0-6 Basophil % 0.8 % N 0-2 Nucleated Red Blood Cells % 0 Comp Metabolic Panel 03/27/2018 [facility] Sodium 140 mmol/L N 135- 145 [phone] Potassium 4.0 mmol/L N 3.5-5.0 Chloride 109 mmol/L N 101-111 Co2 Carbon Dioxide 25 mmol/L N 22-32 Anion Gap 6 mmol/L N 2-11 Glucose 104 mg/dL High 70-100 Blood Urea Nitrogen 10 mg/dL N 6-24 Creatinine 0.72 mg/dL N 0.51-0.95 BUN/Creatinine Ratio 13.9 N 8-20 Calcium 8.6 mg/dL N 8.6-10.3 Total Protein 7.1 g/dL N 6.4-8.9 Albumin 4.0 g/dL N 3.2-5.2 Globulin 3.1 g/dL N 2-4 Albumin/Globulin Ratio 1.3 N 1-3 Total Bilirubin 0.60 mg/dL N 0.2-1.0 Alkaline Phosphatase 124 U/L High 34-104 Alt 13 U/L N 7-52 Ast 17 U/L N 13-39 Egfr Non- 92.2 >60 Egfr 111.5 >60 12 BCR/Abl P210 PCR 03/27/2018 [facility] BCR/Abl p210 see interpretati 13 [phone] Result <SEE NOTE> BCR/Abl PCR Specimen Blood BCR/Abl p210 Final Diagnosis See Comment 14 Urine Culture And 03/25/2018 [facility] Urine Culture SEE RESULT 15 Sensitivities [phone] BELOW Urinalysis Profile 03/25/2018 [facility] Urine Color Straw [phone] Urine Appearance Clear Urine Specific [place] 1.004 Low 1.010-1.030 Urine pH 6.0 N 5-9 Urine Urobilinogen Negative Negative Urine Ketones Negative Negative Urine Protein Negative Negative Urine Leukocytes 1+ Abnormal Negative Urine Blood 3+ Abnormal Negative Urine Nitrite Negative Negative Urine Bilirubin Negative Negative Urine Glucose Negative Negative Urine White Blood Cell Trace(0-5/hpf) Absent Urine Red Blood Cell Trace(0-2/hpf) Absent Urine Bacteria Absent Absent Urine Squamous Epithelial Cell Present Abnormal Absent Laboratory test finding 03/25/2018 [facility] Phosphorus 2.7 mg/dL N 2.5-5.0 [phone] Magnesium 2.0 mg/dL N 1.9-2.7 C Reactive Protein 2.46 mg/L N <8.01 Comp Metabolic Panel 03/25/2018 [facility] Sodium 138 mmol/L N 135- 145 [phone] Potassium 3.3 mmol/L Low 3.5-5.0 Chloride 108 mmol/L N 101-111 Co2 Carbon Dioxide 24 mmol/L N 22-32 Anion Gap 6 mmol/L N 2-11 Glucose 107 mg/dL High 70-100 Blood Urea Nitrogen 8 mg/dL N 6-24 Creatinine 0.76 mg/dL N 0.51-0.95 BUN/Creatinine Ratio 10.5 N 8-20 Calcium 8.9 mg/dL N 8.6-10.3 Total Protein 7.1 g/dL N 6.4-8.9 Albumin 4.1 g/dL N 3.2-5.2 Globulin 3.0 g/dL N 2-4 Albumin/Globulin Ratio 1.4 N 1-3 Total Bilirubin 0.50 mg/dL N 0.2-1.0 Alkaline Phosphatase 115 U/L High 34-104 Alt 16 U/L N 7-52 Ast 19 U/L N 13-39 Egfr Non- 86.6 >60 Egfr 104.8 >60 16 CBC Auto Diff 03/25/2018 [facility] White Blood Count 10.7 10^3/uL N 3.5-10.8 [phone] Red Blood Count 3.97 10^6/uL Low 4.00-5.40 Hemoglobin 11.4 g/dL Low 12.0-16.0 Hematocrit 34 % Low 35-47 Mean Corpuscular Volume 86 fL N 80-97 Mean Corpuscular Hemoglobin 29 pg N 27-31 Mean Corpuscular HGB Conc 33 g/dL N 31-36 Red Cell Distribution Width 16 % High 10.5-15 Platelet Count 435 10^3/uL N 150-450 Mean Platelet Volume 8.4 fL N 7.4-10.4 Abs Neutrophils 8.9 10^3/uL High 1.5-7.7 Abs Lymphocytes 1.3 10^3/uL N 1.0-4.8 Abs Monocytes 0.3 10^3/uL N 0-0.8 Abs Eosinophils 0 10^3/uL N 0-0.6 Abs Basophils 0.2 10^3/uL N 0-0.2 Abs Nucleated RBC 0 10^3/uL Granulocyte % 83.5 % High 38-83 Lymphocyte % 12.2 % Low 25-47 Monocyte % 2.6 % N 0-7 Eosinophil % 0.2 % N 0-6 Basophil % 1.5 % N 0-2 Nucleated Red Blood Cells % 0 Venous Blood Gas 03/25/2018 [facility] Venous Blood pH 7.41 N 7.33- 7.43 [phone] Venous Pco2 40 mmHg Low 41-51 Venous Po2 35 mmHg N 35-45 Venous O2 Saturation 67.2 % Low 70-80 Venous Blood Base Excess 0.7 N 0-4 17 Venous Bicarbonate Hco3 24.7 mmol/L N 24-28 CBC Auto Diff 02/28/2018 [facility] White Blood 68.5 10^3/uL High 3.5 -10.8 [phone] Count Red Blood Count 3.62 10^6/uL Low 4.00-5.40 Hemoglobin 10.1 g/dL Low 12.0-16.0 Hematocrit 32 % Low 35-47 Mean Corpuscular Volume 89 fL N 80-97 Mean Corpuscular Hemoglobin 28 pg N 27-31 Mean Corpuscular HGB Conc 31 g/dL N 31-36 Red Cell Distribution Width 17 % High 10.5-15 Platelet Count 303 10^3/uL N 150-450 Mean Platelet Volume 9.3 um3 N 7.4-10.4 Abs Neutrophils 60.1 10^3/uL High 1.5-7.7 Manual Differential 02/28/2018 [facility] Immature Granulocytes 14 % High 0-9 [phone] Neutrophil % 66 % N 38-83 Band % 7 % N 0-8 Lymphocytes % 10 % Low 25-47 Monocytes % 3 % N 0-7 Eosinophils % 3 % N 0-6 Basophil % 4 % High 0-2 Metamyelocytes % 5 % High 0-2 Myelocytes % 2 % High 0-1 Nucleated Red Blood Cells/100 1 High 0-0 Abs Neutrophils 45.2 10^3/uL High 1.5-7.7 Abs Lymphocytes 6.9 10^3/uL High 1.0-4.8 Abs Monocytes 2.1 10^3/uL High 0-0.8 Abs Eosinophils 2.1 10^3/uL High 0-0.6 Abs Basophils 2.7 10^3/uL High 0-0.2 RBC Morphology Normal Normal Laboratory test 02/28/2018 [facility] Pathologist Review (SEE NOTE) 18 finding [phone] Comp Metabolic 02/21/2018 [facility] Sodium 140 mmol/L N 135-145 Panel [phone] Potassium 3.9 mmol/L N 3.5-5.0 Chloride 108 mmol/L N 101-111 Co2 Carbon Dioxide 26 mmol/L N 22-32 Anion Gap 6 mmol/L N 2-11 Glucose 108 mg/dL High 70-100 Blood Urea Nitrogen 13 mg/dL N 6-24 Creatinine 0.74 mg/dL N 0.51-0.95 BUN/Creatinine Ratio 17.6 N 8-20 Calcium 9.1 mg/dL N 8.6-10.3 Total Protein 6.7 g/dL N 6.4-8.9 Albumin 4.1 g/dL N 3.2-5.2 Globulin 2.6 g/dL N 2-4 Albumin/Globulin Ratio 1.6 N 1-3 Total Bilirubin 0.60 mg/dL N 0.2-1.0 Alkaline Phosphatase 74 U/L N 34-104 Alt 30 U/L N 7-52 Ast 31 U/L N 13-39 Egfr Non- 89.8 >60 Egfr 108.7 >60 19 Laboratory test 02/21/2018 [facility] TSH (Thyroid 2.72 mcIU/mL N 0.34-5.60 finding [phone] Stim Horm) CBC Auto Diff 02/21/2018 [facility] White Blood 175.6 High 3.5-10.8 [phone] Count 10^3/uL Red Blood Count 3.55 10^6/uL Low 4.00-5.40 Hemoglobin 9.9 g/dL Low 12.0-16.0 Hematocrit 32 % Low 35-47 Mean Corpuscular Volume 89 fL N 80-97 Mean Corpuscular Hemoglobin 28 pg N 27-31 Mean Corpuscular HGB Conc 31 g/dL N 31-36 Red Cell Distribution Width 17 % High 10.5-15 Platelet Count 361 10^3/uL N 150-450 Mean Platelet Volume 9.4 um3 N 7.4-10.4 Abs Neutrophils 160.1 10^3/uL High 1.5-7.7 Abs Lymphocytes 7.4 10^3/uL High 1.0-4.8 Abs Monocytes 3.5 10^3/uL High 0-0.8 Abs Eosinophils 2.9 10^3/uL High 0-0.6 Abs Basophils 1.7 10^3/uL High 0-0.2 Manual Differential 02/21/2018 [facility] Immature Granulocytes 19 % High 0-9 [phone] Neutrophil % 64 % N 38-83 Band % 14 % High 0-8 Lymphocytes % 6 % Low 25-47 Monocytes % 1 % N 0-7 Eosinophils % 4 % N 0-6 Basophil % 5 % High 0-2 Variant Lymph % 1 % N 0-6 Metamyelocytes % 2 % N 0-2 Myelocytes % 3 % High 0-1 Nucleated Red Blood Cells/100 2 High 0-0 Abs Neutrophils 112.4 10^3/uL High 1.5-7.7 Abs Lymphocytes 10.5 10^3/uL High 1.0-4.8 Abs Monocytes 1.8 10^3/uL High 0-0.8 Abs Eosinophils 7.0 10^3/uL High 0-0.6 Abs Basophils 8.8 10^3/uL High 0-0.2 Polychromasia 1+ Laboratory test 02/21/2018 [facility] Pathologist Review (SEE NOTE) 20 finding [phone] Laboratory test 02/04/2018 [facility] Pathologist Review (SEE NOTE) 21 finding [phone] Manual 02/04/2018 [facility] Immature 23 % High 0-9 Differential [phone] Granulocytes Neutrophil % 73 % N 38-83 Band % 15 % High 0-8 Lymphocytes % 0 % Low 25-47 Monocytes % 0 % N 0-7 Eosinophils % 1 % N 0-6 Basophil % 0 % N 0-2 Metamyelocytes % 4 % High 0-2 Myelocytes % 3 % High 0-1 Promyelocytes % 1 % Blast % 3 % High 22 Nucleated Red Blood Cells/100 25 High 0-0 Abs Neutrophils 113.4 10^3/uL High 1.5-7.7 Abs Lymphocytes 0 10^3/uL Low 1.0-4.8 Abs Monocytes 0 10^3/uL N 0-0.8 Abs Eosinophils 1.6 10^3/uL High 0-0.6 Abs Basophils 0 10^3/uL N 0-0.2 Hypochromasia 1+ Anisocytosis 1+ CBC Auto Diff 02/04/2018 [facility] White Blood 155.3 10^3/uL High 3.5-10.8 [phone] Count Red Blood Count 3.52 10^6/uL Low 4.00-5.40 Hemoglobin 9.9 g/dL Low 12.0-16.0 Hematocrit 31 % Low 35-47 Mean Corpuscular Volume 88 fL N 80-97 Mean Corpuscular Hemoglobin 28 pg N 27-31 Mean Corpuscular HGB Conc 32 g/dL N 31-36 Red Cell Distribution Width 17 % High 10.5-15 Platelet Count 534 10^3/uL High 150-450 Mean Platelet Volume 8.6 um3 N 7.4-10.4 Abs Neutrophils 142.6 10^3/uL High 1.5-7.7 Comp Metabolic Panel 02/04/2018 [facility] Sodium 137 mmol/L N 135- 145 [phone] Potassium 3.8 mmol/L N 3.5-5.0 Chloride 105 mmol/L N 101-111 Co2 Carbon Dioxide 26 mmol/L N 22-32 Anion Gap 6 mmol/L N 2-11 Glucose 134 mg/dL High 70-100 Blood Urea Nitrogen 9 mg/dL N 6-24 Creatinine 0.73 mg/dL N 0.51-0.95 BUN/Creatinine Ratio 12.3 N 8-20 Calcium 9.2 mg/dL N 8.6-10.3 Total Protein 7.5 g/dL N 6.4-8.9 Albumin 4.3 g/dL N 3.2-5.2 Globulin 3.2 g/dL N 2-4 Albumin/Globulin Ratio 1.3 N 1-3 Total Bilirubin 0.60 mg/dL N 0.2-1.0 Alkaline Phosphatase 62 U/L N 34-104 Alt 25 U/L N 7-52 Ast 28 U/L N 13-39 Egfr Non- 91.3 >60 Egfr 110.4 >60 23 Laboratory 02/04/2018 [facility] TSH (Thyroid Stim 1.61 mcIU/mL N 0.34-5.60 test finding [phone] Horm) Leukemia/Lymph 01/21/2018 [facility] Path (SEE NOTE) 24 zacarias Phenot [phone] Interpretation 2-8 Marker BCR/Abl Trans 01/21/2018 [facility] BCR/abl (Fish) Abnormal 9:22 Fish [phone] Result Summary BCR/abl (Fish) Result Table See Comment 25 BCR/abl (Fish) Specimen Bone Marrow BCR/abl (Fish) Referral Reason See Comment 26 BCR/abl (Fish) Method See Comment 27 BCR/abl Results See Comment 28 BCR/abl (Fish) Interpretation See Comment 29 BCR/abl (Fish) Additional Info See Comment 30 BCR/abl (Fish) Disclaimer See Comment 31 BCR/abl (Fish) Released By See Comment 32 CBC Auto Diff 01/21/2018 [facility] White Blood 142.9 10^3/uL High 3.5-10.8 [phone] Count Red Blood Count 3.69 10^6/uL Low 4.00-5.40 Hemoglobin 10.5 g/dL Low 12.0-16.0 Hematocrit 33 % Low 35-47 Mean Corpuscular Volume 89 fL N 80-97 Mean Corpuscular Hemoglobin 29 pg N 27-31 Mean Corpuscular HGB Conc 32 g/dL N 31-36 Red Cell Distribution Width 17 % High 10.5-15 Platelet Count 335 10^3/uL N 150-450 Mean Platelet Volume 9.1 um3 N 7.4-10.4 Abs Neutrophils 127.5 10^3/uL High 1.5-7.7 Abs Lymphocytes 6.2 10^3/uL High 1.0-4.8 Abs Monocytes 5.1 10^3/uL High 0-0.8 Abs Eosinophils 2.0 10^3/uL High 0-0.6 Abs Basophils 2.1 10^3/uL High 0-0.2 Manual Differential 01/21/2018 [facility] Immature Granulocytes 23 % High 0-9 [phone] Neutrophil % 55 % N 38-83 Band % 11 % High 0-8 Lymphocytes % 5 % Low 25-47 Monocytes % 4 % N 0-7 Eosinophils % 3 % N 0-6 Basophil % 7 % High 0-2 Metamyelocytes % 3 % High 0-2 Myelocytes % 7 % High 0-1 Promyelocytes % 2 % Blast % 3 % High 33 Nucleated Red Blood Cells/100 4 High 0-0 Abs Neutrophils 78.6 10^3/uL High 1.5-7.7 Abs Lymphocytes 7.1 10^3/uL High 1.0-4.8 Abs Monocytes 5.7 10^3/uL High 0-0.8 Abs Eosinophils 4.3 10^3/uL High 0-0.6 Abs Basophils 10.0 10^3/uL High 0-0.2 RBC Morphology Normal Normal Laboratory test 01/21/2018 [facility] Pathologist Review (SEE NOTE) 34 finding [phone] BCR/Abl Trans 9:22 01/14/2018 [facility] BCR/abl (Fish) Abnormal Fish [phone] Result Summary BCR/abl (Fish) Result Table See Comment 35 BCR/abl (Fish) Specimen Blood BCR/abl (Fish) Referral Reason See Comment 36 BCR/abl (Fish) Method See Comment 37 BCR/abl Results See Comment 38 BCR/abl (Fish) Interpretation See Comment 39 BCR/abl (Fish) Disclaimer See Comment 40 BCR/abl (Fish) Released By See Comment 41 Laboratory test 01/10/2018 [facility] Pathologist Review (SEE NOTE) 42 finding [phone] Manual 01/10/2018 [facility] Immature 39 % High 0-9 Differential [phone] Granulocytes Neutrophil % 47 % N 38-83 Band % 16 % High 0-8 Lymphocytes % 5 % Low 25-47 Monocytes % 4 % N 0-7 Eosinophils % 2 % N 0-6 Basophil % 2 % N 0-2 Metamyelocytes % 6 % High 0-2 Myelocytes % 15 % High 0-1 Promyelocytes % 2 % Blast % 1 % High 43 Abs Neutrophils 85.8 10^3/uL High 1.5-7.7 Abs Lymphocytes 9.1 10^3/uL High 1.0-4.8 Abs Monocytes 7.3 10^3/uL High 0-0.8 Abs Eosinophils 3.7 10^3/uL High 0-0.6 Abs Basophils 3.7 10^3/uL High 0-0.2 Polychromasia 1+ Anisocytosis 2+ Laboratory test finding 01/10/2018 [facility] Lipase 51 U/L N 11.0- 82.0 [phone] Erythrocyte Sed Rate 38 mm/Hr High 0-14 Amylase 32 U/L N 29-103 Celiac Panel 01/10/2018 [facility] Tissue Transglutaminase IgA <1.2 U/ mL [phone] Ab Immunoglobulin A 151 mg/dL 61 - 356 Celiac Interpretation See Comment 45 Comp Metabolic Panel 01/10/2018 [facility] Sodium 138 mmol/L N 135- 145 [phone] Potassium 3.8 mmol/L N 3.5-5.0 Chloride 105 mmol/L N 101-111 Co2 Carbon Dioxide 27 mmol/L N 22-32 Anion Gap 6 mmol/L N 2-11 Glucose 94 mg/dL N 70-100 Blood Urea Nitrogen 12 mg/dL N 6-24 Creatinine 0.68 mg/dL N 0.51-0.95 BUN/Creatinine Ratio 17.6 N 8-20 Calcium 9.0 mg/dL N 8.6-10.3 Total Protein 6.9 g/dL N 6.4-8.9 Albumin 4.2 g/dL N 3.2-5.2 Globulin 2.7 g/dL N 2-4 Albumin/Globulin Ratio 1.6 N 1-3 Total Bilirubin 0.60 mg/dL N 0.2-1.0 Alkaline Phosphatase 104 U/L N 34-104 Alt 79 U/L High 7-52 Ast 55 U/L High 13-39 Egfr Non- 99.0 >60 Egfr 119.8 >60 46 CBC Auto Diff 01/10/2018 [facility] White Blood 182.5 10^3/uL High 3.5-10.8 [phone] Count Red Blood Count 3.48 10^6/uL Low 4.00-5.40 Hemoglobin 10.0 g/dL Low 12.0-16.0 Hematocrit 31 % Low 35-47 Mean Corpuscular Volume 89 fL N 80-97 Mean Corpuscular Hemoglobin 29 pg N 27-31 Mean Corpuscular HGB Conc 32 g/dL N 31-36 Red Cell Distribution Width 17 % High 10.5-15 Platelet Count 425 10^3/uL N 150-450 Mean Platelet Volume 8.7 um3 N 7.4-10.4 Abs Neutrophils 163.5 10^3/uL High 1.5-7.7 Laboratory test 12/22/2015 [facility] Hemoglobin A1c (Glyco <pending> finding [phone] HGB) Vitamin D Total 25(Oh) <pending> Laboratory test finding 12/22/2015 [facility] Cytology SEE RESULT BELOW [phone] Human Papilloma Virus Rna Negative N Negative 48 Laboratory test 12/22/2015 [facility] TSH (Thyroid Stim <pending> finding [phone] Horm) Laboratory test 10/20/2014 In House Hemoglobin A1c 5.7 finding Laboratory test 10/20/2014 In House Glucose 63 finding Quantitative Laboratory test 10/20/2014 [facility] Cytology SEE RESULT BELOW 49 finding [phone] Human Papilloma Virus Rna Negative N Negative 50 Ua Inhouse 11/23/2013 In House Ua Glucose - Ua Bilirubin - Ua Ketones - Ua Specific [place] 1.020 Ua Blood sm Ua PH 6.5 Ua Protein 1+ Ua Urobilinogen - Ua Nitrite + Ua Leukocytes mod Laboratory test 10/14/2013 In House Glucose 87 finding Laboratory test 10/14/2013 In House Hemoglobin A1c 5.3 finding Human Papilloma 09/22/2012 [facility] Human Papillomavirus See Comment 51 Virus [phone] Source Human Papillomavirus High Risk Negative Negative 52 Laboratory test 09/18/2012 [facility] Cytology RUN DATE: wnl 53, 54 finding [phone] SEE NOTE> Laboratory test 09/18/2012 In House Glucose 98 finding Quantitative Hemoglobin A1c 5.7 Urine Culture 12/14/2011 [facility] 55 & Sensitivi [phone] <SEE NOTE> Laboratory 12/14/2011 [facility] BHCG 6203.0 MIU/ML High 0-5 56 test finding [phone] Quantitative Comp Metabolic 12/14/2011 [facility] Sodium 135 mmol/L 135 Panel [phone] Potassium 3.6 mmol/L 3.5-5.0 Chloride 109 mmol/L 101-111 Co2 (Carbon Dioxide) 22.0 mmol/L 22-32 Anion Gap 4.0 mmol/L 2-11 57 Glucose 105 mg/dL High 70-100 BUN 10 mg/dL 6-24 Creatinine 0.6 mg/dL 0.50-1.40 One Over Creatinine 1.66 BUN/Creatinine Ratio 16.7 8-20 Calcium 8.6 mg/dL 8.1-9.9 Total Protein 6.1 GM/DL Low 6.2-8.1 Albumin 3.6 GM/DL 3.6-5.4 Globulin 2.5 GM/DL 2-4 Albumin/Globulin Ratio 1.4 1-3 Bilirubin Total 0.7 mg/dL 0.4-1.5 58 Alkaline Phosphatase 51 U/L 30-110 Alt (SGPT) 18 U/L 14-54 Ast (Sgot) 19 U/L 12-42 eGFR Non- 119.0 > 60 eGFR 153.1 > 60 59 Laboratory test 12/14/2011 [facility] PTT (Aptt) 24.7 SEC Low 25.1- 38.5 finding [phone] Protime 12/14/2011 [facility] Inr 0.94 0.88-1.13 60 [phone] Protime 11.1 SEC 10.3-13.5 61 Urinalysis W/Microscopic 12/14/2011 [facility] Ua Color YELLOW Yellow [phone] Appearance-Urine CLEAR Clear Specific [place]-Ur 1.022 1.010-1.030 Esterase-Urine NEGATIVE Negative Nitrite NEGATIVE Negative Ilbebuedhrda-Mz-IMB NEGATIVE Negative Protein-Urine NEGATIVE Negative PH-Urine 5.5 5-9 Blood-Urine 2+ Abnormal Negative Ketones-Urine NEGATIVE Negative Bilirubin-Ur NEGATIVE Negative Glucose-Urine NEGATIVE Negative RBC-Urine 0-2 0-2 Epith Cells-Ur MANY None Bacteria-Urine 1+ None CBC Auto Diff 12/14/2011 [facility] White Blood Count 12.2 CUMM High 4.8-10.8 [phone] Red Cell Count 4.79 CUMM 4.2-5.4 Hemoglobin [...] Abs Basophils 0.1 0-0.2 Laboratory test 09/14/2011 [facility] TSH 2.41 MIU/ML 0.34-5.60 finding [phone] Lipid Profile 09/14/2011 [facility] Triglyceride 63 mg/dL 40-200 (Trig/Chol/HDL) [phone] Cholesterol 152 mg/dL Less Than 200 62 High Density Lipoprotein 59 mg/dL 40-60 63 Cholesterol/HDL Ratio 2.58 AVERAGE 1-4.44 Low Density Lipoprotein 80 mg/dL Less Than 100 64 Comp Metabolic Panel 09/14/2011 [facility] Sodium 135 mmol/L 135- 145 [phone] Potassium 3.9 mmol/L 3.5-5.0 Chloride 105 mmol/L 101-111 Co2 (Carbon Dioxide) 26.0 mmol/L 22-32 Anion Gap 4.0 mmol/L 2-11 65 Glucose 97 mg/dL 70-100 BUN 11 mg/dL 6-24 Creatinine 0.7 mg/dL 0.50-1.40 One Over Creatinine 1.42 BUN/Creatinine Ratio 15.7 8-20 Calcium 8.4 mg/dL 8.1-9.9 Total Protein 6.4 GM/DL 6.2-8.1 Albumin 3.6 GM/DL 3.6-5.4 Globulin 2.8 GM/DL 2-4 Albumin/Globulin Ratio 1.3 1-3 Bilirubin Total 0.8 mg/dL 0.4-1.5 66 Alkaline Phosphatase 54 U/L 30-110 Alt (SGPT) 24 U/L 14-54 Ast (Sgot) 25 U/L 12-42 eGFR Non- 99.6 > 60 eGFR 128.1 > 60 67 CBC With Manual 09/14/2011 [facility] White Blood Count 7.5 CUMM 4.8 -10.8 Diff [phone] Red Cell Count 4.76 CUMM 4.2-5.4 Hemoglobin [...] 3.90 RBC Morphology NORMAL [facility] High 0 -5 68 finding [phone] MIU/ML Urine Micro 12/25/2010 In House Ua WBC 4-6 Inhouse Ua RBC 8-10 Ua Casts - Ua Epi - Ua Other casts Ua Glucose - Ua Bilirubin - Ua Ketones - Ua Specific [place] 1.020 Ua Blood 3+ Ua PH 6.0 Ua Protein + Ua Urobilinogen - Ua Nitrite - Ua Leukocytes 3+ Laboratory test 07/27/2010 [facility] Cytology <SEE 69 finding [phone] NOTE> Culture Urine 02/10/2010 In House Colonies 02/20 Inhouse Urine Micro Inhouse 02/10/2010 In House Ua WBC tntc Ua RBC occ Ua Casts - Ua Epi - Ua Other - Ua Glucose - Ua Bilirubin - Ua Ketones - Ua Specific [place] 1.010 Ua Blood - Ua PH 6.0 Ua Protein tr Ua Urobilinogen - Ua Nitrite - Ua Leukocytes mod Urine Culture & 10/22/2009 [facility] Urine Culture SN2 70 Sensitivi [phone] Sensitivi Laboratory test 07/07/2009 [facility] Cytology 71 finding [phone] --- <SEE NOTE> 1 see interpretation PDF Report available at: [email or web address] 2 Peripheral blood, BCR/ABL1 mRNA level analysis (p210 fusion form): Positive. BCR/ABL1 p210 mRNA transcripts were detected and estimated to represent 1.4% of total ABL1 (%BCR/ABL1(p210):ABL1) (MR 1.9). %BCRABL1 (p210):ABL1 in this assay is reported using the International Scale (IS), in which 0.1% is considered a major molecular response (MMR) in CML (Ref: Latonyaani M, et al. Blood;122:872-884; Press RD, et al. J Mol Diagn 2013;15:565-576). Signing Pathologist: Isaias Lamar M.D., Ph.D. ADDITIONAL INFORMATION Method summary - BCR/ABL1, p210 fusion: The BCR/ABL1 transcript level was evaluated using a quantitative, reverse stepdown nurse PCR. The analytical sensitivity of this assay has been determined at 0.003% (MR 4.5). This assay detects the major breakpoint region-associated common fusion mRNA forms in chronic myelogenous leukemia (e13/a2 and e14/a2), which code for a p210 protein. It is intended for monitoring patients with hematopoietic neoplasms known to carry the p210 fusion form. The assay does not detect other BCR/ABL1 mRNA types, including the e1/a2 transcript (p190 protein) that is commonly present in acute lymphoblastic leukemia. This assay is not intended for use in the diagnostic setting, as it does not detect all BCR/ABL1 mRNA fusion forms. If this has been performed in a diagnostic setting and the result is negative, test: BADX (BCR/ABL mRNA Detection, RT-PCR, Qualitative, Diagnostic) should be ordered to evaluate for all possible fusion forms. Please contact the [facility] at [phone] with questions or if additional testing is required. See the [facility] Interpretive Handbook for method details. The reproducibility of this assay is such that results within 0.5 log should be considered equivalent. Trends in the level of BCR/ABL1 mRNA should be followed carefully and clinically significant changes in BCR/ABL1 mRNA levels during tyrosine kinase inhibitor (TKI) therapy may indicate the presence of acquired BCR/ABL1 kinase domain mutations, which can be further evaluated using the BCR/ABL KDM assay (test: BAKDM). This test was developed and its performance characteristics determined by [facility] in a manner consistent with CLIA requirements. This test has not been cleared or approved by the U.S. Food and Drug Administration. Test Performed by: [address] [address] 3 Because ethnic data is not always readily [...] 15-29 5 Kidney failure <15 (or dialysis) 4 Abnormality Name Result Abn Cutoff (%) (%) t(9;22) ABL1/BCR fusion Abnormal 16.6 <0.6 5 RESULT: C92.10 chronic myeloid leukemia, BCR/ABL positive 6 Locus and probes [Strategy;#Nuclei;Class] 9q34(ABL1),22q11.2(BCR) [DFISH;500;ASR] Probe strategy includes: DFISH=dual color, double fusion. 7 RESULT: nuc boris(ABL1,BCR)x3(ABL1 con BCRx2)[83/500] 8 The result is abnormal and indicates BCR/ABL1 fusion in 16.6% of nuclei. This result indicates persistence or recurrence of this patient's known BCR/ABL1 fusion clone. For monitoring response to therapy, RT-PCR for BCR/ABL1 is recommended, per NCCN guidelines. Although RT-PCR testing is not available on the current specimen, this testing can be performed on blood or bone marrow collected in EDTA or ACD. Please call [phone] regarding specimen requirements for RT-PCR based tests. 9 Previous Studies DATE SPECIMEN RESULT 01/14/2018 Blood ABL1/BCR fusion (93% of nuclei) 01/21/2018 Marrow ABL1/BCR fusion (89.2% of nuclei) 10 Analyte Specific Reagent (ASR). This test was developed using an analyte specific reagent. Its performance characteristics were determined by [facility] in a manner consistent with CLIA requirements. This test has not been cleared or approved by the U.S. Food and Drug Administration. This FISH test does not rule out other chromosome abnormalities. 11 RESULT: Cyndi Armstrong M.D. Test Performed by: [address] [address] 12 Because ethnic data is not always readily [...] 15-29 5 Kidney failure <15 (or dialysis) 13 see interpretation PDF Report available at: [email or web address] 14 Peripheral blood, BCR/ABL1 mRNA level analysis (p210 fusion form): Positive. BCR/ABL1 p210 mRNA transcripts were detected and estimated to represent 41.0% total ABL1 (%BCR/ABL1(p210):ABL1). %BCRABL1 (p210):ABL1 in this assay is reported using the International Scale (IS), in which 0.1% is considered a major response (MMR) in CML (Ref: Dulce M, et al. Blood;122:872-884; Miri RD, et al. J Mol Diagn 2013;15:565-576). Signing Pathologist: Anuel Freeman M.D. ADDITIONAL INFORMATION Method summary - BCR/ABL1, p210 fusion: The BCR/ABL1 transcript level was evaluated using a quantitative, reverse stepdown nurse PCR. The analytical sensitivity of this assay has been determined at 0.003% (MR 4.5). This assay detects the major breakpoint region-associated common fusion mRNA forms in chronic myelogenous leukemia (e13/a2 and e14/a2), which code for a p210 protein. It is intended for monitoring patients with hematopoietic neoplasms known to carry the p210 fusion form. The assay does not detect other BCR/ABL1 mRNA types, including the e1/a2 transcript (p190 protein) that is commonly present in acute lymphoblastic leukemia. This assay is not intended for use in the diagnostic setting, as it does not detect all BCR/ABL1 mRNA fusion forms. If this has been performed in a diagnostic setting and the result is negative, test: BADX (BCR/ABL mRNA Detection, RT-PCR, Qualitative, Diagnostic) should be ordered to evaluate for all possible fusion forms. Please contact the [facility] at [phone] with questions or if additional testing is required. See the [facility] Interpretive Handbook for method details. The reproducibility of this assay is such that results within 0.5 log should be considered equivalent. Trends in the level of BCR/ABL1 mRNA should be followed carefully and clinically significant changes in BCR/ABL1 mRNA levels during tyrosine kinase inhibitor (TKI) therapy may indicate the presence of acquired BCR/ABL1 kinase domain mutations, which can be further evaluated using the BCR/ABL KDM assay (test: BAKDM). This test was developed and its performance characteristics determined by [facility] in a manner consistent with CLIA requirements. This test has not been cleared or approved by the U.S. Food and Drug Administration. Test Performed by: [facility] - [address] [address] 15 SEE RESULT BELOW Name: EMILIA MUNOZ : [address]: Marcelo Rios MD Acct: [id number] Unit: [id number] AGE: 33 Location: ED Re03/25/18 SEX: F Status: REG ER SPEC: [id number] SARAH: 03/25/[address] [facility] [address]: Kevin Cisneros MD REQ: [id number] RECD: 03/25/18 STATUS: INA DELA CRUZ DR: [facility] Jennifer BANSAL _ SOURCE: URINE SPDESC: ORDERED: Urine Culture Procedure Result Reported Site Urine Culture Final 03/26/18- 1613 ML No Growth (<1,000 CFU/mL) * ML - Main Lab . END OF REPORT DEPARTMENT OF PATHOLOGY, [address] [place] [address] Reese Hernandez M.D. Director [facility] # [id number] 16 Because ethnic data is not always readily [...] 15-29 5 Kidney failure <15 (or dialysis) 17 Reference ranges based on room air. 18 Findings compatible with the patient's known myeloproliferative disorder. Additional studies as clinically warranted. Reviewed by Dr. Hernandez 19 Because ethnic data is not always readily [...] 15-29 5 Kidney failure <15 (or dialysis) 20 Leukocytosis with left-shifted granulocytes and occasional circulating blasts, compatible with CML. Reviewed by Trinity Sanchez MD 21 Profound absolute leukocytosis with left-shifted granulocytes, absolute neutrophilia, and absolute basophilia, compatible with CML. No evidence of blastic transformation. Reviewed by Trinity Sanchez MD 22 Verbal to [id number] by [id number] at 1515 on 02/04/18. Results read back accurately. 23 Because ethnic data is not always readily [...] 15-29 5 Kidney failure <15 (or dialysis) 24 FINAL DIAGNOSIS: No immunophenotypic abnormalities identified. Specimen [...] Electronically signed by: Reese Hernandez MD 01/24/18 0891 Technical component performed by: [place] [address] Snow Ranger: Toño Gomes II, MD, PhD. 25 Abnormality Name Result Abn Cutoff (%) (%) t(9;22) ABL1/BCR fusion Abnormal 89.2 <0.6 26 RESULT: D72.829 elevated white blood cell count, unspecified 27 Locus and probes [Strategy;#Nuclei;Class] 9q34(ABL1),22q11.2(BCR) [DFISH;500;ASR] Probe strategy includes: DFISH=dual color, double fusion. 28 RESULT: nuc boris(ABL1,BCR)x3(ABL1 con BCRx2)[446/500] 29 The result is abnormal and indicates BCR/ABL1 fusion in 89.2% of nuclei. This result indicates persistence of this patient's known BCR/ABL1 fusion clone. For monitoring response to therapy, RT-PCR for BCR/ABL is recommended, per NCCN guidelines. Although RT-PCR testing is not available on the current specimen, this testing can be performed on blood or bone marrow collected in EDTA or ACD. Please call [phone] regarding specimen requirements for RT-PCR based tests. 30 Previous Studies DATE SPECIMEN RESULT 01/14/2018 Blood BCR/ABL1 fusion (93% of nuclei) 31 Analyte Specific Reagent (ASR). This test was developed using an analyte specific reagent. Its performance characteristics were determined by [facility] in a manner consistent with CLIA requirements. This test has not been cleared or approved by the U.S. Food and Drug Administration. This FISH test does not rule out other chromosome abnormalities. 32 RESULT: Genesis Erickson D.O. Test Performed by: [address] [address] 33 Verbal to [] by [[id number]] at [0945] on [01/21/18].Results read back accurately 34 Progressive, marked leukocytosis with immature granulocytosis and few blasts highly suggestive of chronic myelogenous leukemia. Mild normocytic anemia noted. Reviewed by Dr. Hernandez 35 Abnormality Name Result Abn Cutoff (%) (%) t(9;22) ABL1/BCR fusion Abnormal 93 <0.6 36 RESULT: D72.829 elevated white blood cell count, unspecified 37 Locus and probes [Strategy;#Nuclei;Class] 9q34(ABL1),22q11.2(BCR) [DFISH;500;ASR] Probe strategy includes: DFISH=dual color, double fusion. 38 RESULT: nuc boris(ABL1,BCR)x3(ABL1 con BCRx2)[465/500] 39 The result is abnormal and indicates BCR/ABL1 fusion in 93% of nuclei. This result is usually associated with CML or B-ALL (Anneltrom et al., Leuk Lymphoma 47:397-402, 2006; Filibertos et al., DANI 286:895-898, 2001). For monitoring response to therapy, RT-PCR for BCR/ABL1 is recommended, per NCCN guidelines. Although RT-PCR testing is not available on the current specimen, this testing can be performed on blood or bone marrow collected in EDTA or ACD. Please call [phone] regarding specimen requirements for RT-PCR based tests. 40 Analyte Specific Reagent (ASR). This test was developed using an analyte specific reagent. Its performance characteristics were determined by [facility] in a manner consistent with CLIA requirements. This test has not been cleared or approved by the U.S. Food and Drug Administration. This FISH test does not rule out other chromosome abnormalities. 41 RESULT: Cyndi Armstrong M.D. Test Performed by: [place] [id number] 42 Profound absolute leukocytosis with absolute neutrophilia and left-shifted granulocytes with occasional blasts, most compatible with chronic myeloid leukemia. No evidence of a blast transformation. Recommend correlation with BCR:ABL translocation studies. Reviewed by Trinity Sanchez MD 43 Verbal to Allison by [id number] at 1447 on 01/10/18.WBC and % Blast results read back accurately 44 REFERENCE VALUE <4.0 (Negative) Test Performed by: [address] [address] 45 Negative serology. Celiac disease unlikely. However, approximately 10% of patients with celiac disease are seronegative. Also, patients who are already adhering to a gluten-free diet may be seronegative. If celiac disease is highly clinically suspected, consider HLA-DQ typing. Test Performed by: [address] [address] 46 Because ethnic data is not always readily [...] 15-29 5 Kidney failure <15 (or dialysis) 47 SEE RESULT BELOW Name: EMILIA MUNOZ : [address]: Jennifer BANSAL Acct: [id number] Unit: [id number] AGE: 30 Location: [facility] Re12/22/15 SEX: F Status: REG REF SPEC: [id number] SARAH: 12/22/15-[address]: Jennifer BANSAL REQ: [id number] RECD: 12/22/15 STATUS: SOUT _ ORDERED: IMAGE ANALYSIS, HPV/Thin Prep COMMENTS: [id number] FINAL DIAGNOSIS Negative for Intraepithelial lesion or [...] was evaluated with the assistance of the ACSIANPrep Test Imaging System. Due to cytologic findings at the skoog operator microscope, comprehensive manual rescreening by a Decision Support Analyst may be required. The Pap Smear is [...] performed at Main Lab RUN DATE: 12/23/15 [facility] LAB LIVE PAGE 1 Patient: TERESAAminaEMILIA Smith [id number] (Continued) DEPARTMENT OF PATHOLOGY, [address] [place] [address] Reese Hernandez M.D. Director [facility] # [id number] 48 The high-risk HPV types detected by the assay include: 16, 18, 31, 33, 35, 39, 45, 51, 52, 56, 58, 59, 66, and 68. 49 SEE RESULT BELOW Name: EMILIA MUNOZ : [address]: Prerna Royal MD Acct: [id number] Unit: [id number] AGE: 29 Location: [facility] Re10/20/14 SEX: F Status: REG REF SPEC: [id number] SARAH: 10/20/14-[address] [facility] [address]: Prerna Royal MD REQ: [id number] RECD: 10/20/14135 STATUS: SOUT _ ORDERED: IMAGE ANALYSIS, HPV/Thin [...] and 68. Signed (signature on file) VERONICA Mcnair (ASCP) 10/22 0856 This Pap test was evaluated with the assistance of the ACSIANPrep Test Imaging System. Due to cytologic findings at the skoog operator microscope, comprehensive manual rescreening by a Decision Support Analyst may be required. The Pap Smear is [...] performed at Main Lab DEPARTMENT OF PATHOLOGY, [facility] [address] [place], [place] [address] Reese Hernandez M.D. Director [facility] # [id number] 50 The high-risk HPV types detected by the assay include: 16, 18, 31, 33, 35, 39, 45, 51, 52, 56, 58, 59, 66, and 68. 51 RESULT: Ectocervical/Endocervical 52 For types 16, 18, 31, 33, 35, 39, 45, 51, 52, 56, 58, 59 and 68. Test Performed by: [address] [address] Snow Ranger: Alec Luo III, M.D. 53 awaiting HPV results 54 RUN DATE: 09/22/12 [facility] LAB LIVE PAGE 1 RUN TIME: 2013 [facility] [place], [place] [address] Specimen Inquiry Name: EMILIA MUNOZ : [address]: Prerna Royal MD Acct: [id number] Unit: [id number] AGE: 27 Location: [facility] Re09/18/12 SEX: F Status: REG REF SPEC: [id number] SARAH: 09/18/[address]: Prerna Royal MD REQ: [id number] RECD: 09/19/12-1259 STATUS: SOUT _ ORDERED: IMAGE ANALYSIS, HPV / Thin Prep FINAL DIAGNOSIS Negative for Intraepithelial lesion or Malignancy COMMENTS: Specimen sent to [facility] in [place], [place] on 09/22/12 by [id number] at 1004. Results will be reported separately. [...] System. Due to cytologic findings at the skoog operator microscope, comprehensive manual rescreening by a Decision Support Analyst may be required. The Pap Smear is [...] performed at Main Lab DEPARTMENT OF PATHOLOGY, [address] [place] [address] Reese Hernandez M.D. [facility] Permit #[id number] RUN DATE: 12/16/11 [facility] NMI LIVE PAGE 1 RUN TIME: 1544 Specimen Inquiry RUN USER: INTERFACE Name: EMILIA MUNOZ Status: JUNE CLI Re12/14/11 Age/Sex: 26/F Unit#: [id number] Location: : [birth year] SPEC #: [id number] SARAH: 12/14/11 STATUS: INA REJany #: [id number] RECD: 12/14/[address]: Patito Johnson MD SOURCE: URINE ENTR: 12/14/[address]: Prerna Royal MD [facility]: ORDERED: URINE C S QUERIES: SPECIMEN DESCRIPTION: URINE, CLEAN CATCH ACT WKST: UR 12/16/11 #1 Procedure Result Verified Site > URINE CULTURE SENSITIVI Final 12/16/11- 1544 ML SPECIMEN CONTAINS NORMAL URETHRAL OR PERINEAL CED AND DOES NOT SUGGEST URINARY TRACT INFECTION ML - [facility] Permit #[id number] [address] [place] [address] DEPARTMENT OF PATHOLOGY, [address] [place] [address] [facility] Permit #[id number] Reese Hernandez M.D. Director Holley Christina M.D. Marble Worker 56 * MALES: < 5.0 MIU/ML NON FEMALES [...] confirmed by an alternate HCG method. . 57 Anion gap measurement may be of limited value in the presence of any alkalosis, especially in a combined acid base disorder. . 58 A metabolite of Naproxen, O-desmethylnaproxen, has been shown to interfere with the Jendrassik-Kekaha method for measuring total bilirubin. Samples from patients who have taken Naproxen have shown spurious elevation in total bilirubin levels. 59 Because ethnic data is not always readily [...] 15-29 5 Kidney failure <15 (or dialysis) 60 Recommended INR for Patients on Oral Anticoagulants Prophylaxis 2.0 - 3.0 Treatment of thrombosis 2.0 - 3.0 Prevention of embolism 2.0 - 3.0 Prevention of embolism from prosthetic heart valves 2.5 - 3.5 61 DIAGNOSIS,TREATMENT,AND THERAPY MUST BE BASED ON THE INR VALUE ALONE. 62 CHOLESTEROL INTERPRETATION: Desirable: Less than 200 MG/DL Borderline-High Risk: 200-239 MG/DL High-Risk: 240 MG/DL and over 63 HDL INTERPRETATION: Undesirable: High Risk: Less than 40 MG/DL Desirable: Low Risk: Greater than 60 MG/DL 64 LDL INTERPRETATION: Low Risk Optimal Level: LDL Less than 100 MG/DL Near or Above Optimal: LDL 100-129 MG/DL Borderline High Risk: LDL 130-159 MG/DL High Risk: LDL 160-189 MG/DL Very High Risk: LDL Greater than 189 MG/DL 65 Anion gap measurement may be of limited value in the presence of any alkalosis, especially in a combined acid base disorder. . 66 A metabolite of Naproxen, O-desmethylnaproxen, has been shown to interfere with the Jendrassik-Kekaha method for measuring total bilirubin. Samples from patients who have taken Naproxen have shown spurious elevation in total bilirubin levels. 67 Because ethnic data is not always readily [...] 15-29 5 Kidney failure <15 (or dialysis) 68 * MALES: < 5.0 MIU/ML NON FEMALES [...] confirmed by an alternate HCG method. . 69 ---- RUN DATE: 07/31/10 [facility] NMI LIVE PAGE 1 RUN TIME: 1557 Specimen Inquiry RUN USER: INTERFACE -- Name: EMILIA MUNOZ Status: REG REF Re07/27/10 Age/Sex: 25/F Unit#: [id number] Location: [facility]. : [birth year] -- Specimen: [id number] SOUT Spec Date: 07/27/[address]: Prerna Royal MD Spec Type: CYTOLOGY [...] was evaluated with the assistance of the ACSIANPrep Pap Test Imaging System. The Pap Smear [...] three years. Initial evaluation performed by Joi GUTIERREZ(ASCP) 07/31/10 Final Interpretation electronically signed by: Joi GUTIERREZ(ASCP) 07/31/10 1557 -- -- DEPARTMENT OF PATHOLOGY, [address] [place] [address] [facility] Permit #[id number] Reese Hernandez M.D. Director Holley Christina M.D. Glove Machine Operator Dir raad -- 70 SCANT NORMAL URETHRAL OR PERINEAL CED 71 ---- RUN DATE: 07/08/09 [facility] NMI LIVE PAGE 1 RUN TIME: 1365 Specimen Inquiry RUN USER: INTERFACE -- Name: EMILIA LANCE Status: REG REF Re07/07/09 Age/Sex: 24/F Unit#: [id number] Location: [facility] : 83 -- Specimen: [id number] SOUT Spec Date: 07/07/[address]: Prerna Royal MD Spec Type: CYTOLOGY [...] was evaluated with the assistance of the ACSIANPrep Pap Test Imaging System. Due to cytologic findings at the skoog operator microscope, comprehensive manual rescreening by a Decision Support Analyst was required. The Pap Smear is a [...] Rosalinda ASCENCIO(ASCP) 07/08/09 -- DEPARTMENT OF PATHOLOGY, [address] [place] [address] [facility] Permit #[id number] Malinda Resendiz M.D. Glove Machine Operator Dir raad -- -- RUN DATE: 07/08/09 [facility] NMI LIVE PAGE 2 RUN TIME: 1474 Specimen Inquiry RUN USER: INTERFACE -- Name: EMILIA LANCE Status: REG REF Re07/07/09 Age/Sex: 24/F Unit#: [id number] Location: [facility] : 83 -- -- CONTINUED -- Final Interpretation electronically signed by: REESE HERNANDEZ MD 07/08/09 14 55 -- -- DEPARTMENT OF PATHOLOGY, [address] [place] [address] [facility] Permit #[id number] Reese Hernandez M.D. Director Holley Christina M.D. Glove Machine Operator Dir raad -- Procedures Date Code Description Status 04/21/2018 31937 Omt 3 To 4 Body Regions Involved Completed Encounters Type Date Location Provider Dx Diagnosis Office Visit 04/21/2018 Main Office David Guerrero, M26.603 Bilateral 2:30p D.O. 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 M99.00 Segmental and somatic dysfunction of head region M99.01 Segmental and somatic dysfunction of cervical region M99.02 Segmental and somatic dysfunction of thoracic region M99.08 Segmental and somatic dysfunction of rib cage Office Visit 03/12/2018 9:20a Main Office Jennifer Demarco PA K58.2 Mixed irritable bowel syndrome F41.9 Anxiety disorder, unspecified C92.10 [...] MD V70.0 Examination General Medical Routine AT [facility] 782.8 Skin Texture Changes V76.19 [...] Breast Exam Malignant Neoplasms Other V72.31 Routine Thoracic Medicine Specialist Examination Office Visit 09/04/2013 4:00p Main Office [...] & Other Nonspec Skin Eruption V72.31 Routine Thoracic Medicine Specialist Examination Office Visit 10/09/2011 10:15a Main Office Prerna Royal MD 309.0 Adjustment Disorder With Depression 278.01 Obesity Morbid 401.1 Hypertension Benign Office Visit 09/18/2011 9:30a Main Office Prerna Royal MD 530.81 Esophageal Reflux V65.49 Counseling Other Spec 278.01 Obesity Morbid 401.1 Hypertension Benign 309.0 Adjustment Disorder With Depression V06.1 Oeughanjhl-Wqlhtxc-Alatayib Combined (DTaP) V70.0 Examination General Medical Routine AT Health Care Facility V07.2 Prophylactic Immunotherapy Office Visit 12/25/2010 2:20p Main Office Yumiko [place], 599.0 UTI Urinary Tract P.A. 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 Infection Site Not Spec V25.01 Oral Contraceptive Prescription 788.1 Dysuria Office Visit 07/07/2009 10:00a Main Office Prerna Royal MD 401.1 Hypertension Benign 278.00 Obesity Unspec V65.49 Counseling Other Spec V72.31 Routine Thoracic Medicine Specialist Examination Office Visit 12/30/2008 1:45p Main Office Prerna Royal MD 401.1 Hypertension Benign 278.00 Obesity Unspec V65.49 Counseling Other Spec Plan of Treatment Future Appointment(s):08/26/2018 1:50 pm - Jennifer Demarco PA at [facility] - David Guerrero D.O.R10.9 Unspecified abdominal painComments:Tried to schedule CT holding call, but due to the hour it was not available. Emilia was sent to the ER.Follow up:as wjxbsedgkP99.10 Chronic myeloid leukemia, BCR/ Abl-positive, not having cxvsyZ49.9 Anxiety disorder, htzltlnysdtB83.2 Mixed irritable bowel nznldrwdR36.30 Lower abdominal pain, unspecifiedNew Xrays:CT Abdomen and Pelvis w/ Contrast, Ordered: 07/08/18
--- OUTSIDE RECORDS SUMMARY | 2018-07-08 18:08 | XMS REPORT | Continuity of Care Document ---
:1985 External Reference #:[id number] Author Name David Guerrero D.O. 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 Tobacco Use Start: Unknown [...] CPT Code Status Date Vaccine Lot # [id number] Given 09/18/2011 Adacel or Boostrix, TDaP [id number] Vital Signs Date Vital Result Comment 07/08/2018 [...] Mass Index) 32.2 kg/m2 Last Menstrual Period [id number] 10/20/2014 9:40am BP Systolic 124 mmHg BP [...] Mass Index) 42.1 kg/m2 Last Menstrual Period [id number] IUD 09/04/2013 3:59pm BP Systolic 116 mmHg [...] Mass Index) 44.8 kg/m2 Last Menstrual Period [id number] 12/25/2010 2:26pm BP Systolic 120 mmHg BP Diastolic 60 mmHg Body Temperature 98.2 F Weight 266.00 lb 07/27/2010 3:46pm BP Systolic 138 mmHg BP Diastolic 80 mmHg Height 68.50 inches 5'8.50" Weight 273.00 lb BMI (Body Mass Index) 40.9 kg/m2 Last Menstrual Period [id number] 02/10/2010 1:37pm BP Systolic 116 mmHg BP Diastolic 71 mmHg Heart Rate 68 /min Body Temperature 98.5 F Height 68.5 inches 5'8.50" Weight 280.00 lb BMI (Body Mass Index) 42.0 kg/m2 Last Menstrual Period [id number] 07/07/2009 10:25am BP Systolic 130 mmHg BP Diastolic 78 mmHg Weight 263.00 lb Last Menstrual Period 0 12/30/2008 1:59pm BP Systolic 140 mmHg my readings 120/80 both arms. BP Diastolic 82 mmHg my readings 120/80 both arms. Height 68.5 inches 5'8.50" Weight 258.00 lb BMI (Body Mass Index) 38.7 kg/m2 Last Menstrual Period [id number] Results Test Date Facility Test Result H/L Range Note BCR/Abl P210 07/04/2018 [facility] BCR/Abl p210 see interpretati 1 PCR [phone] Result <SEE NOTE> BCR/Abl PCR Specimen Blood BCR/Abl p210 Final Diagnosis See Comment 2 CBC Auto Diff 06/13/2018 [facility] White Blood Count 6.3 10^3/uL N 3.5-10.8 [phone] Red Blood Count 4.69 10^6/uL N 4.00-5.40 [...] Cells % 0 CBC Auto Diff 05/23/2018 [facility] White Blood Count 6.3 10^3/uL N 3.5-10.8 [phone] Red Blood Count 4.73 10^6/uL N 4.00-5.40 [...] Cells % 0 Comp Metabolic Panel 05/23/2018 [facility] Sodium 138 mmol/L N 135- 145 [phone] Potassium 4.4 mmol/L N 3.5-5.0 Chloride 107 [...] 115.2 >60 3 BCR/Abl Trans 9:22 05/23/2018 [facility] BCR/abl (Fish) Result Abnormal Fish [phone] Summary BCR/abl (Fish) Result Table See Comment 4 BCR/abl (Fish) Specimen Blood BCR/abl (Fish) Referral Reason See Comment 5 BCR/abl (Fish) Method See Comment 6 BCR/abl Results See Comment 7 BCR/abl (Fish) Interpretation See Comment 8 BCR/abl (Fish) Additional Info See Comment 9 BCR/abl (Fish) Disclaimer See Comment 10 BCR/abl (Fish) Released By See Comment 11 CBC Auto Diff 04/04/2018 [facility] White Blood Count 8.2 10^3/uL N 3.5-10.8 [phone] Red Blood Count 4.23 10^6/uL N 4.00-5.40 [...] Cells % 0 Comp Metabolic Panel 03/27/2018 [facility] Sodium 140 mmol/L N 135- 145 [phone] Potassium 4.0 mmol/L N 3.5-5.0 Chloride 109 [...] 111.5 >60 12 BCR/Abl P210 PCR 03/27/2018 [facility] BCR/Abl p210 see interpretati 13 [phone] Result <SEE NOTE> BCR/Abl PCR Specimen Blood BCR/Abl p210 Final Diagnosis See Comment 14 Urine Culture And 03/25/2018 [facility] Urine Culture SEE RESULT 15 Sensitivities [phone] BELOW Urinalysis Profile 03/25/2018 [facility] Urine Color Straw [phone] Urine Appearance Clear Urine Specific [place] 1.004 Low 1.010-1.030 Urine pH 6.0 N [...] Present Abnormal Absent Laboratory test finding 03/25/2018 [facility] Phosphorus 2.7 mg/dL N 2.5-5.0 [phone] Magnesium 2.0 mg/dL N 1.9-2.7 C Reactive Protein 2.46 mg/L N <8.01 Comp Metabolic Panel 03/25/2018 [facility] Sodium 138 mmol/L N 135- 145 [phone] Potassium 3.3 mmol/L Low 3.5-5.0 Chloride 108 [...] 104.8 >60 16 CBC Auto Diff 03/25/2018 [facility] White Blood Count 10.7 10^3/uL N 3.5-10.8 [phone] Red Blood Count 3.97 10^6/uL Low 4.00-5.40 [...] Cells % 0 Venous Blood Gas 03/25/2018 [facility] Venous Blood pH 7.41 N 7.33- 7.43 [phone] Venous Pco2 40 mmHg Low 41-51 Venous Po2 35 mmHg N 35-45 Venous O2 Saturation 67.2 % Low 70-80 Venous Blood Base Excess 0.7 N 0-4 17 Venous Bicarbonate Hco3 24.7 mmol/L N 24-28 CBC Auto Diff 02/28/2018 [facility] White Blood 68.5 10^3/uL High 3.5 -10.8 [phone] Count Red Blood Count 3.62 10^6/uL Low [...] 60.1 10^3/uL High 1.5-7.7 Manual Differential 02/28/2018 [facility] Immature Granulocytes 14 % High 0-9 [phone] Neutrophil % 66 % N 38-83 Band [...] RBC Morphology Normal Normal Laboratory test 02/28/2018 [facility] Pathologist Review (SEE NOTE) 18 finding [phone] Comp Metabolic 02/21/2018 [facility] Sodium 140 mmol/L N 135-145 Panel [phone] Potassium 3.9 mmol/L N 3.5-5.0 Chloride 108 [...] Egfr 108.7 >60 19 Laboratory test 02/21/2018 [facility] TSH (Thyroid 2.72 mcIU/mL N 0.34-5.60 finding [phone] Stim Horm) CBC Auto Diff 02/21/2018 [facility] White Blood 175.6 High 3.5-10.8 [phone] Count 10^3/uL Red Blood Count 3.55 10^6/uL [...] 1.7 10^3/uL High 0-0.2 Manual Differential 02/21/2018 [facility] Immature Granulocytes 19 % High 0-9 [phone] Neutrophil % 64 % N 38-83 Band [...] High 0-0.2 Polychromasia 1+ Laboratory test 02/21/2018 [facility] Pathologist Review (SEE NOTE) 20 finding [phone] Laboratory test 02/04/2018 [facility] Pathologist Review (SEE NOTE) 21 finding [phone] Manual 02/04/2018 [facility] Immature 23 % High 0-9 Differential [phone] Granulocytes Neutrophil % 73 % N 38-83 [...] 10^3/uL N 0-0.2 Hypochromasia 1+ Anisocytosis 1+ Laboratory test 02/04/2018 [facility] TSH (Thyroid 1.61 mcIU/mL N 0.34-5.60 finding [phone] Stim Horm) Comp Metabolic 02/04/2018 [facility] Sodium 137 mmol/L N 135-145 Panel [phone] Potassium 3.8 mmol/L N 3.5-5.0 Chloride 105 [...] Non- 91.3 >60 Egfr 110.4 >60 23 CBC Auto Diff 02/04/2018 [facility] White Blood 155.3 10^3/uL High 3.5-10.8 [phone] Count Red Blood Count 3.52 10^6/uL Low [...] Neutrophils 142.6 10^3/uL High 1.5-7.7 Leukemia/Lymphoma 01/21/2018 [facility] Path (SEE NOTE) 24 Phenot [phone] Interpretation 2-8 Marker BCR/Abl Trans 9:22 01/21/2018 [facility] BCR/abl (Fish) Abnormal Fish [phone] Result Summary BCR/abl (Fish) Result Table See Comment 25 BCR/abl (Fish) Specimen Bone Marrow BCR/abl (Fish) Referral Reason See Comment 26 BCR/abl (Fish) Method See Comment 27 BCR/abl Results See Comment 28 BCR/abl (Fish) Interpretation See Comment 29 BCR/abl (Fish) Additional Info See Comment 30 BCR/abl (Fish) Disclaimer See Comment 31 BCR/abl (Fish) Released By See Comment 32 CBC Auto Diff 01/21/2018 [facility] White Blood 142.9 10^3/uL High 3.5-10.8 [phone] Count Red Blood Count 3.69 10^6/uL Low [...] 2.1 10^3/uL High 0-0.2 Manual Differential 01/21/2018 [facility] Immature Granulocytes 23 % High 0-9 [phone] Neutrophil % 55 % N 38-83 Band [...] RBC Morphology Normal Normal Laboratory test 01/21/2018 [facility] Pathologist Review (SEE NOTE) 34 finding [phone] BCR/Abl Trans 9:22 01/14/2018 [facility] BCR/abl (Fish) Abnormal Fish [phone] Result Summary BCR/abl (Fish) Result Table See Comment 35 BCR/abl (Fish) Specimen Blood BCR/abl (Fish) Referral Reason See Comment 36 BCR/abl (Fish) Method See Comment 37 BCR/abl Results See Comment 38 BCR/abl (Fish) Interpretation See Comment 39 BCR/abl (Fish) Disclaimer See Comment 40 BCR/abl (Fish) Released By See Comment 41 Laboratory test 01/10/2018 [facility] Pathologist Review (SEE NOTE) 42 finding [phone] Manual 01/10/2018 [facility] Immature 39 % High 0-9 Differential [phone] Granulocytes Neutrophil % 47 % N 38-83 [...] 1+ Anisocytosis 2+ Laboratory test finding 01/10/2018 [facility] Lipase 51 U/L N 11.0- 82.0 [phone] Erythrocyte Sed Rate 38 mm/Hr High 0-14 Amylase 32 U/L N 29-103 Celiac Panel 01/10/2018 [facility] Tissue Transglutaminase IgA <1.2 U/ mL 44 [phone] Ab Immunoglobulin A 151 mg/dL 61 - 356 Celiac Interpretation See Comment 45 Comp Metabolic Panel 01/10/2018 [facility] Sodium 138 mmol/L N 135- 145 [phone] Potassium 3.8 mmol/L N 3.5-5.0 Chloride 105 [...] 119.8 >60 46 CBC Auto Diff 01/10/2018 [facility] White Blood 182.5 10^3/uL High 3.5-10.8 [phone] Count Red Blood Count 3.48 10^6/uL Low [...] 163.5 10^3/uL High 1.5-7.7 Laboratory test 12/22/2015 [facility] Hemoglobin A1c (Glyco <pending> finding [phone] HGB) Vitamin D Total 25(Oh) <pending> Laboratory test 12/22/2015 [facility] TSH (Thyroid <pending> finding [phone] Stim Horm) Laboratory test 12/22/2015 [facility] Cytology SEE RESULT BELOW 47 finding [phone] Human Papilloma Virus Rna Negative N Negative 48 Laboratory test 10/20/2014 In House Hemoglobin A1c 5.7 finding Laboratory test 10/20/2014 In House Glucose Quantitative 63 finding Laboratory test 10/20/2014 [facility] Cytology SEE RESULT 49 finding [phone] BELOW Human Papilloma Virus Rna Negative N Negative 50 Ua Inhouse 11/23/2013 In House Ua Glucose - Ua Bilirubin - Ua Ketones - Ua Specific [place] 1.020 Ua Blood sm Ua PH 6.5 Ua Protein 1+ Ua Urobilinogen - Ua Nitrite + Ua Leukocytes mod Laboratory test 10/14/2013 In House Glucose 87 finding Laboratory test 10/14/2013 In House Hemoglobin A1c 5.3 finding Human Papilloma 09/22/2012 [facility] Human Papillomavirus See Comment 51 Virus [phone] Source Human Papillomavirus High Risk Negative Negative 52 Laboratory test 09/18/2012 [facility] Cytology RUN DATE: wnl 53, 54 finding [phone] SEE NOTE> Laboratory test 09/18/2012 In House Glucose 98 finding Quantitative Hemoglobin A1c 5.7 Comp Metabolic Panel 12/14/2011 [facility] Sodium 135 mmol/L 135- 145 [phone] Potassium 3.6 mmol/L 3.5-5.0 Chloride 109 mmol/L 101-111 Co2 (Carbon Dioxide) 22.0 mmol/L 22-32 Anion Gap 4.0 mmol/L 2-11 55 Glucose 105 mg/dL High 70-100 BUN 10 mg/dL 6-24 Creatinine 0.6 mg/dL 0.50-1.40 One Over Creatinine 1.66 BUN/Creatinine Ratio 16.7 8-20 Calcium 8.6 mg/dL 8.1-9.9 Total Protein 6.1 GM/DL Low 6.2-8.1 Albumin 3.6 GM/DL 3.6-5.4 Globulin 2.5 GM/DL 2-4 Albumin/Globulin Ratio 1.4 1-3 Bilirubin Total 0.7 mg/dL 0.4-1.5 56 Alkaline Phosphatase 51 U/L 30-110 Alt (SGPT) 18 U/L 14-54 Ast (Sgot) 19 U/L 12-42 eGFR Non- 119.0 > 60 eGFR 153.1 > 60 57 Laboratory test 12/14/2011 [facility] BHCG Quantitative 6203.0 High 0 -5 58 finding [phone] MIU/ML Urine Culture & 12/14/2011 [facility] M 59 Sensitivi [phone] ----- <SEE NOTE> Laboratory test 12/14/2011 [facility] PTT (Aptt) 24.7 SEC Low 25.1- 38. finding [phone] 5 Protime 12/14/2011 [facility] Inr 0.94 0.88-1.1 60 [phone] 3 Protime 11.1 SEC 10.3-13.5 61 Urinalysis W/Microscopic 12/14/2011 [facility] Ua Color YELLOW Yellow [phone] Appearance-Urine CLEAR Clear Specific [place]-Ur 1.022 1.010-1.030 Esterase-Urine NEGATIVE Negative Nitrite NEGATIVE Negative Hoqulikzcbcl-Rl-XRZ NEGATIVE Negative Protein-Urine NEGATIVE Negative PH-Urine 5.5 5-9 Blood-Urine 2+ Abnormal Negative Ketones-Urine NEGATIVE Negative Bilirubin-Ur NEGATIVE Negative Glucose-Urine NEGATIVE Negative RBC-Urine 0-2 0-2 Epith Cells-Ur MANY None Bacteria-Urine 1+ None CBC Auto Diff 12/14/2011 [facility] White Blood Count 12.2 CUMM High 4.8-10.8 [phone] Red Cell Count 4.79 CUMM 4.2-5.4 Hemoglobin [...] Abs Basophils 0.1 0-0.2 Laboratory test 09/14/2011 [facility] TSH 2.41 MIU/ML 0.34-5.60 finding [phone] Lipid Profile 09/14/2011 [facility] Triglyceride 63 mg/dL 40-200 (Trig/Chol/HDL) [phone] Cholesterol 152 mg/dL Less Than 200 62 High Density Lipoprotein 59 mg/dL 40-60 63 Cholesterol/HDL Ratio 2.58 AVERAGE 1-4.44 Low Density Lipoprotein 80 mg/dL Less Than 100 64 Comp Metabolic Panel 09/14/2011 [facility] Sodium 135 mmol/L 135- 145 [phone] Potassium 3.9 mmol/L 3.5-5.0 Chloride 105 mmol/L [...] > 60 67 CBC With Manual 09/14/2011 [facility] White Blood Count 7.5 CUMM 4.8 -10.8 Diff [phone] Red Cell Count 4.76 CUMM 4.2-5.4 Hemoglobin [...] 3.90 RBC Morphology NORMAL [facility]0 High 0 -5 68 finding [phone] MIU/ML Urine Micro 12/25/2010 In House Ua WBC 4-6 Inhouse Ua RBC 8-10 Ua Casts - Ua Epi - Ua Other casts Ua Glucose - Ua Bilirubin - Ua Ketones - Ua Specific [place] 1.020 Ua Blood 3+ Ua PH 6.0 Ua Protein + Ua Urobilinogen - Ua Nitrite - Ua Leukocytes 3+ Laboratory test 07/27/2010 [facility] Cytology <SEE 69 finding [phone] NOTE> Urine Micro Inhouse 02/10/2010 In House Ua WBC tntc Ua RBC occ Ua Casts - Ua Epi - Ua Other - Ua Glucose - Ua Bilirubin - Ua Ketones - Ua Specific [place] 1.010 Ua Blood - Ua PH 6.0 Ua Protein tr Ua Urobilinogen - Ua Nitrite - Ua Leukocytes mod Culture Urine 02/10/2010 In House Colonies 02/20 Inhouse Urine Culture & 10/22/2009 [facility] Urine Culture SN2 70 Sensitivi [phone] Sensitivi Laboratory test 07/07/2009 [facility] Cytology 71 finding [phone] - <SEE NOTE> 1 see interpretation PDF Report available at: [email or web address] 2 Peripheral blood, BCR/ABL1 mRNA level [...] level was evaluated using a quantitative, reverse staff consultant PCR. The analytical sensitivity of this assay [...] all possible fusion forms. Please contact the [facility] at [phone] with questions or if additional testing is required. See the [facility] Interpretive Handbook for method details. The [...] developed and its performance characteristics determined by [facility] in a manner consistent with CLIA requirements. This test has not been cleared or approved by the U.S. Food and Drug Administration. Test Performed by: [address] [address] 3 Because ethnic data is not always [...] collected in EDTA or ACD. Please call [phone] regarding specimen requirements for RT-PCR based tests. 9 Previous Studies DATE SPECIMEN RESULT 01/14/2018 Blood ABL1/BCR fusion (93% of nuclei) 01/21/2018 Marrow ABL1/BCR fusion (89.2% of nuclei) 10 Analyte Specific Reagent (ASR). This test was developed using an analyte specific reagent. Its performance characteristics were determined by [facility] in a manner consistent with CLIA requirements. This test has not been cleared or approved by the U.S. Food and Drug Administration. This FISH test does not rule out other chromosome abnormalities. 11 RESULT: Cyndi Armstrong M.D. Test Performed by: [address] [address] 12 Because ethnic data is not always [...] 13 see interpretation PDF Report available at: [email or web address] 14 Peripheral blood, BCR/ABL1 mRNA level [...] level was evaluated using a quantitative, reverse staff consultant PCR. The analytical sensitivity of this assay [...] all possible fusion forms. Please contact the [facility] at [phone] with questions or if additional testing is required. See the [facility] Interpretive Handbook for method details. The [...] developed and its performance characteristics determined by [facility] in a manner consistent with CLIA requirements. This test has not been cleared or approved by the U.S. Food and Drug Administration. Test Performed by: [facility] - [address] [address] 15 SEE RESULT BELOW Name: EMILIA MUNOZ : [address]: Marcelo Rios MD Acct: [id number] Unit: [id number] AGE: 33 Location: ED Re03/25/18 SEX: F Status: REG ER SPEC: [id number] SARAH: 03/25/18-[address] [facility] [address]: Kevin Cisneros MD REQ: [id number] RECD: 03/25/18 STATUS: INA DELA CRUZ DR: [facility] Jennifer BANSAL _ SOURCE: URINE SPDESC: ORDERED: Urine Culture Procedure Result Reported Site Urine Culture Final 03/26/18- 1613 ML No Growth (<1,000 CFU/mL) * ML - Main Lab . END OF REPORT DEPARTMENT OF PATHOLOGY, [address] [place] [address] Reese Hernandez M.D. Director [facility] # [id number] 16 Because ethnic data is not always [...] by Trinity Sanchez MD 22 Verbal to [id number] by [id number] at 1515 on 02/04/18. Results read back [...] Electronically signed by: Reese Hernandez MD 01/24/18 9509 Technical component performed by: [place] [id number] Comptroller: Toño Gomes II, MD, PhD. 25 Abnormality [...] collected in EDTA or ACD. Please call [phone] regarding specimen requirements for RT-PCR based tests. 30 Previous Studies DATE SPECIMEN RESULT 01/14/2018 Blood BCR/ABL1 fusion (93% of nuclei) 31 Analyte Specific Reagent (ASR). This test was developed using an analyte specific reagent. Its performance characteristics were determined by [facility] in a manner consistent with CLIA requirements. This test has not been cleared or approved by the U.S. Food and Drug Administration. This FISH test does not rule out other chromosome abnormalities. 32 RESULT: Genesis Erickson D.O. Test Performed by: [address] [address] 33 Verbal to [] by [[email or web address]] at [0945] on [01/21/18].Results read back accurately [...] collected in EDTA or ACD. Please call [phone] regarding specimen requirements for RT-PCR based tests. 40 Analyte Specific Reagent (ASR). This test was developed using an analyte specific reagent. Its performance characteristics were determined by [facility] in a manner consistent with CLIA requirements. This test has not been cleared or approved by the U.S. Food and Drug Administration. This FISH test does not rule out other chromosome abnormalities. 41 RESULT: Cyndi Armstrong M.D. Test Performed by: [place] [id number] 42 Profound absolute leukocytosis with absolute neutrophilia and left-shifted granulocytes with occasional blasts, most compatible with chronic myeloid leukemia. No evidence of a blast transformation. Recommend correlation with BCR:ABL translocation studies. Reviewed by Trinity Sanchez MD 43 Verbal to Allison by [email or web address] at 1447 on 01/10/18.WBC and % Blast results read back accurately 44 REFERENCE VALUE <4.0 (Negative) Test Performed by: [address] [address] 45 Negative serology. Celiac disease unlikely. However, approximately 10% of patients with celiac disease are seronegative. Also, patients who are already adhering to a gluten-free diet may be seronegative. If celiac disease is highly clinically suspected, consider HLA-DQ typing. Test Performed by: [address] [address] 46 Because ethnic data is not always [...] : [address]: Jennifer BANSAL Acct: [id number] Unit: [id number] AGE: 30 Location: [facility] Re12/22/15 SEX: F Status: REG REF SPEC: [id number] SARAH: 12/22/15-[address] [facility] [address]: Jennifer BANSAL REQ: [id number] RECD: 12/22/15895 STATUS: SOUT _ ORDERED: IMAGE ANALYSIS, HPV/Thin Prep COMMENTS: [id number] FINAL DIAGNOSIS Negative for Intraepithelial lesion or [...] was evaluated with the assistance of the [employer]ItLive[employer] Test Imaging System. Due to cytologic findings at the ice cream dipper microscope, comprehensive manual rescreening by a Ammonia Worker may be required. The Pap Smear is [...] performed at Main Lab RUN DATE: 12/23/15 [facility] LAB LIVE PAGE 1 Patient: ANDREWROSCOEEMILIA Smith [id number] (Continued) DEPARTMENT OF PATHOLOGY, [address] [place] [address] Reese Hernandez M.D. Director [facility] # [id number] 48 The high-risk HPV types detected by the assay include: 16, 18, 31, 33, 35, 39, 45, 51, 52, 56, 58, 59, 66, and 68. 49 SEE RESULT BELOW Name: EMILIA MUNOZ : [address]: Prerna Royal MD Acct: [id number] Unit: [id number] AGE: 29 Location: [facility] Re10/20/14 SEX: F Status: REG REF SPEC: [id number] SARAH: 10/20/14-[address] [facility] [address]: Prerna Royal MD REQ: [id number] RECD: 10/20/14 STATUS: SOUT _ ORDERED: IMAGE [...] Time Test Result Flag (u) Normal Range 10/20/141121 HPV RNA Negative Negative The high-risk HPV types detected by the assay include: 16, 18, 31, 33, 35, 39, 45, 51, 52, 56, 58, 59, 66, and 68. Signed (signature on file) VERONICA Mcnair (ASCP) 10/22 0856 This Pap test was evaluated with the assistance of the [employer]ItLivePrep Test Imaging System. Due to cytologic findings at the ice cream dipper microscope, comprehensive manual rescreening by a Ammonia Worker may be required. The Pap Smear is [...] END OF REPORT * ML=Testing performed at [facility] DEPARTMENT OF PATHOLOGY, [facility] [place], [place] [address] Reese Hernandez M.D. Director [facility] # [id number] 50 The high-risk HPV types detected by the assay include: 16, 18, 31, 33, 35, 39, 45, 51, 52, 56, 58, 59, 66, and 68. 51 RESULT: Ectocervical/Endocervical 52 For types 16, 18, 31, 33, 35, 39, 45, 51, 52, 56, 58, 59 and 68. Test Performed by: [address] [address] Comptroller: Alec Luo III, M.D. 53 awaiting HPV results 54 RUN DATE: 09/22/12 [facility] LAB LIVE PAGE 1 RUN TIME: [address] [facility] [place], [place] [address] Specimen Inquiry Name: EMILIA MUNOZ : [address]: Prerna Royal MD Acct: [id number] Unit: [id number] AGE: 27 Location: [facility] Re09/18/12 SEX: F Status: REG REF SPEC: [id number] SARAH: 09/18/[address]: Prerna Royal MD REQ: [id number] RECD: 09/19/12-1259 STATUS: SOUT _ ORDERED: IMAGE ANALYSIS, HPV / Thin Prep FINAL DIAGNOSIS Negative for Intraepithelial lesion or Malignancy COMMENTS: Specimen sent to [facility] in [place], [place] on 09/22/12 by [id number] at 1004. Results will be reported separately. [...] System. Due to cytologic findings at the ice cream dipper microscope, comprehensive manual rescreening by a Ammonia Worker may be required. The Pap Smear is [...] performed at Main Lab DEPARTMENT OF PATHOLOGY, [address] [place] [address] Reese Hernandez M.D. Director [facility] Permit #[id number] 55 Anion gap measurement may be of limited value in the presence of any alkalosis, especially in a combined acid base disorder. . 56 A metabolite of Naproxen, O-desmethylnaproxen, has been shown to interfere with the Jendrassik-[place] method for measuring total bilirubin. Samples from patients who have taken Naproxen have shown spurious elevation in total bilirubin levels. 57 Because ethnic data is not always readily [...] 15-29 5 Kidney failure <15 (or dialysis) 58 * MALES: < 5.0 MIU/ML NON FEMALES [...] confirmed by an alternate HCG method. . 59 RUN DATE: 12/16/11 [facility] NMI LIVE PAGE 1 RUN TIME: 1544 Specimen Inquiry RUN USER: INTERFACE Name: EMILIA MUNOZ Status: JUNE CLI Re12/14/11 Age/Sex: 26/F Unit#: [id number] Location: : 83 SPEC #: [id number] SARAH: 12/14/11-1019 STATUS: INA BRANDT #: [id number] RECD: 12/14/11-[address]: Alex CROSSPatito SOURCE: URINE ENTR: 12/14/11-[address]: Lele CROSS,Prerna [facility]: ORDERED: URINE C S QUERIES: SPECIMEN DESCRIPTION: URINE, CLEAN CATCH ACT WKST: UR 12/16/11 #1 Procedure Result Verified Site > URINE CULTURE SENSITIVI Final 12/16/11- 1544 ML SPECIMEN CONTAINS NORMAL URETHRAL OR PERINEAL CED AND DOES NOT SUGGEST URINARY TRACT INFECTION ML - [facility] Permit #[id number] [address] [place] [id number] DEPARTMENT OF PATHOLOGY, [address] [place] [address] [facility] Permit #[id number] Reese Hernandez M.D. Director Holley Christina M.D. Postbed Stitcher 60 Recommended INR for Patients on Oral [...] has been shown to interfere with the Jendrassik-[place]ach[place] method for measuring total bilirubin. Samples from [...] method. . 69 ---- RUN DATE: 07/31/10 [facility] NMI LIVE PAGE 1 RUN TIME: 1557 Specimen Inquiry RUN USER: INTERFACE -- Name: EMILIA MUNOZ Status: REG REF Re07/27/10 Age/Sex: 25/F Unit#: [id number] Location: [facility] : 83 -- Specimen: [id number] SOUT Spec Date: 07/27/[address]: Prerna Royal MD Spec Type: CYTOLOGY [...] was evaluated with the assistance of the CoverItLivePrep Pap Test Imaging System. The Pap Smear [...] 07/31/10 1557 -- -- DEPARTMENT OF PATHOLOGY, [address] [place] [address] [facility] Permit #[id number] Reese Hernandez M.D. Director Holley Christina M.D. Blacksmith Supervisor Dir raad -- 70 SCANT NORMAL URETHRAL OR PERINEAL CED 71 ---- RUN DATE: 07/08/09 [facility] NMI LIVE PAGE 1 RUN TIME: 8710 Specimen Inquiry RUN USER: INTERFACE -- Name: EMILIA LANCE Status: REG REF Re07/07/09 Age/Sex: 24/F Unit#: [id number] Location: [facility] : 83 -- Specimen: [id number] SOUT Spec Date: 07/07/[address]: Prerna [...] was evaluated with the assistance of the CoverItLivePrep Pap Test Imaging System. Due to cytologic findings at the ice cream dipper microscope, comprehensive manual rescreening by a Ammonia Worker was required. The Pap Smear is a [...] Rosalinda ASCENCIO(ASCP) 07/08/09 -- DEPARTMENT OF PATHOLOGY, [address] [place] [address] [facility] Permit #[id number] Reese Hernandez M.D. Director Holley Christina M.D. Blacksmith Supervisor Dir raad -- -- RUN DATE: 07/08/09 [facility] NMI LIVE PAGE 2 RUN TIME: 0904 Specimen Inquiry RUN USER: INTERFACE -- Name: LANCEMICHELLE MckeonSA Smith Status: REG REF Re/18/10 Age/Sex: 24/F Unit#: [id number] Location: [facility] : 83 -- -- CONTINUED -- Final Interpretation electronically signed by: REESE HERNANDEZ MD 07/08/09 14 55 -- -- DEPARTMENT OF PATHOLOGY, [address] [place] [address] [facility] Permit #[id number] Reese Hernandez M.D. Director Holley Christina M.D. Blacksmith Supervisor Dir raad -- Procedures Date Code Description Status 04/21/2018 36012 Omt 3 To 4 Body Regions Involved [...] Breast Exam Malignant Neoplasms Other V72.31 Routine Baseball Inspector Examination Office Visit 09/04/2013 4:00p Main Office [...] & Other Nonspec Skin Eruption V72.31 Routine Baseball Inspector Examination Office Visit 10/09/2011 10:15a Main Office Prerna Royal MD 309.0 Adjustment Disorder With Depression 278.01 Obesity Morbid 401.1 Hypertension Benign Office Visit 09/18/2011 9:30a Main Office Prerna Royal MD 530.81 Esophageal Reflux V65.49 Counseling Other Spec 278.01 Obesity Morbid 401.1 Hypertension Benign 309.0 Adjustment Disorder With Depression V06.1 Yrxxxphrnm-Yzmvamu-Iriljynf Combined (DTaP) V70.0 Examination General Medical Routine AT Health Care Facility V07.2 Prophylactic Immunotherapy Office Visit 12/25/2010 2:20p Main Office Yumiko Marroquin 599.0 UTI Urinary Tract P.A. 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 Infection Site Not Spec V25.01 Oral Contraceptive Prescription 788.1 Dysuria Office Visit 07/07/2009 10:00a Main Office Prerna Royal MD 401.1 Hypertension Benign 278.00 Obesity Unspec V65.49 Counseling Other Spec V72.31 Routine Baseball Inspector Examination Office Visit 12/30/2008 1:45p Main Office Prerna Royal MD 401.1 Hypertension Benign 278.00 Obesity Unspec V65.49 Counseling Other Spec Plan of Treatment Future Appointment(s):08/26/2018 1:50 pm - Jennifer Demarco PA at Main Office
[2018-07-08 18:19] LABS: INR 0.99 (0.77-1.02)
[2018-07-08 18:26] LABS: ALT 22 U/L (7-52); AST 25 U/L (13-39); Albumin 4.3 g/dL (3.2-5.2); Albumin/Globulin Ratio 1.5 (1-3); Alkaline Phosphatase 53 U/L (34-104); Anion Gap 10 mmol/L (2-11); BUN/Creatinine Ratio 14.3 (8-20); Blood Urea Nitrogen 10 mg/dL (6-24); C Reactive Protein 80.16 mg/L (<8.01); CO2 Carbon Dioxide 21 mmol/L (22-32); Calcium 8.9 mg/dL (8.6-10.3); Chloride 105 mmol/L (101-111); EGFR African American 115.2 (>60); EGFR Non-African American 95.2 (>60); Globulin 2.8 g/dL (2-4); Glucose 117 mg/dL (70-100); Potassium 3.5 mmol/L (3.5-5.0); Sodium 136 mmol/L (135-145); Total Protein 7.1 g/dL (6.4-8.9)
[2018-07-08 18:32] LABS: HCG Pregnancy < 0.60 mIU/mL
--- NOTE | 2018-07-08 21:20 | PN ---
Progress Note - Progress Note Date of Service: 07/08/18 Note: Patient signed out to me by Dr. Ellis pending results of CT abdomen and pelvis. CT abdomen and pelvis positive for large appendix without indication of appendicitis, also right adnexal cyst. UA also possible UTI, however patient has no urinary symptoms. Discussed patient with general surgery ornamental iron worker Dr. Briseno who agreed appendix was large, and there appeared to be no indication of appendicitis. Unclear whether symptoms were due to developing appendicitis or right adnexal cyst or UTI. Vital signs within normal limits. Patient white count normal. CRP 80. No left shift. Labs otherwise unremarkable. Patient has persistent mild right lower quadrant pain, worse with palpation. Also worse after eating and drinking. Dr. Briseno recommended admission for observation with surgery follow-up in the morning. Also recommended PAPER BAG PRESS OPERATOR evaluation of right cyst. Transvaginal ultrasound positive for right cyst, negative for torsion. Patient admitted in stable condition for observation. Diagnosis right lower quadrant pain.
--- NOTE | 2018-07-08 23:56 | ADMNOTE ---
Subjective Date of Service: 07/08/18 Interval History: HISTORY AND PHYSICAL PCP: Jennifer PEREIRA at [facility] CC: abdominal pain HPI: Patient is 33 year old currently undergoing treatment for CML, who developed abdominal pain about 24 hours prior to this evaluation. She states pain began suddenly, was in flor-umbilical region. She was able to eat and go to bed. Today the pain migrated to RLQ, and has been waxing and waning, from moderate to severe. She was seen in her PCP's office and referred to ER to rule out appendicitis. Denies vomiting, nausea, diarrhea. 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, no tobacco, rare alcohol, no drug use Past Medical History: Findings - PMH: Obesity, CML; PSH; X1 Review of Systems - Measurements Intake and Output: Intake and Output Last 24 Hours 07/06/18 07/07/18 07/08/18 07/09/18 06:59 06:59 06:59 06:59 Weight 127.006 kg - Review of Systems Constitutional Symptoms: Negative: Weight Loss, Fever Dermatology: Positive: Normal HEENT: Positive: Normal Eyes: Positive: Normal Thyroid: Positive: Normal Pulmonary: Positive: Normal Cardiology: Positive: Normal Gastroenterology: Positive: Abdominal Pain Negative: Nausea, Vomiting, Anorexia, Constipation, Diarrhea, Blood in Stools , Change in Bowel Habits Genital - Urinary: Positive: Normal Genitourinay - Female: Positive: Menses Normal Endocrinology: Positive: Normal Hematologic/Lymphatic: Positive: Hx Leukemia Neurology: Positive: Normal Psychiatry: Positive: Depression Allergic/Immunologic: Positive: Immunocompromise Objective Active Medications: Home Meds: Venlafaxine HCl (Effexor Xr Cap*) 37.5 mg PO DAILY SOHAM [place] Vital Signs - 8 hr 07/08/18 07/08/18 07/08/18 17:33 17:36 17:37 Temperature 37.6 C Pulse Rate 114 110 Respiratory 18 Rate Blood Pressure 167/105 167/105 (mmHg) O2 Sat by Pulse 100 99 99 Oximetry 07/08/18 07/08/18 07/08/18 19:06 19:36 19:51 Temperature Pulse Rate 86 89 90 Respiratory Rate Blood Pressure 133/79 120/73 132/82 (mmHg) O2 Sat by Pulse 99 99 99 Oximetry 07/08/18 07/08/18 23:00 23:06 Temperature Pulse Rate 93 83 Respiratory Rate Blood Pressure 123/70 (mmHg) O2 Sat by Pulse 98 95 Oximetry Oxygen Devices in Use Now: None Appearance: alert, no distress Eyes: No Scleral Icterus Ears/Nose/Mouth/Throat: NL Teeth, Lips, Gums Neck: NL Appearance and Movements; NL JVP Respiratory: Symmetrical Chest Expansion and Respiratory Effort Cardiovascular: NL Sounds; No Murmurs; No JVD Abdominal: No Hepatosplenomegaly, - - positive BS, subjective RLQ tenderness, no distention Lymphatic: No Cervical Adenopathy Extremities: No Edema Skin: No Rash or Ulcers Neurological: Alert and Oriented x 3 Lines/Tubes/Other Access: Clean, Dry and Intact Peripheral IV Nutrition: Taking PO's Result Diagrams: 07/08/18 17:51 07/08/18 17:51 Additional Lab and Data: Laboratory Tests 07/08/18 07/08/18 07/08/18 17:51 17:51 17:51 INR (Anticoag Therapy) 0.99 Lactic Acid 1.1 Calcium 8.9 AST 25 ALT 22 C-Reactive Protein 80.16 H Total Protein 7.1 Lipase 83 H Beta HCG, Quant < 0.60 Diagnostic Imaging: CT abdo/pelvis: enlarged appendix w/o nearby stranding, RT ovarian cyst Pelvic US: pending Assess/Plan/Problems-Billing Assessment: 33 yo woman with CML here with RLQ pain, differential includes appendicitis, ovarian cyst - Patient Problems (1) Appendicitis, unqualified Current Visit: Yes Status: Acute Priority: High Code(s): K37 - UNSPECIFIED APPENDICITIS SNOMED Code(s): 76759988 Comment: -Differential includes appendicitis, ovarian cyst rupture, mesenteric adenitis. -Surgery to evaluate in AM, they were notified by ER. -will allow to eat/drink to challenge, as this does not appear to be appendicitis (2) CML (chronic myeloid leukemia) Current Visit: Yes Status: Acute Priority: Medium Code(s): C92.10 - CHRONIC MYELOID LEUK, BCR/ABL-POSITIVE, NOT ACHIEVE REMIS SNOMED Code(s): 45514847 Comment: -Immunosuppressed w/ Glevek -will hold Glevek for admission, restart on discharge if no severe infection found (3) DVT prophylaxis Current Visit: Yes Status: Acute Priority: Low Code(s): WUJ3126 - SNOMED Code(s): 020997310 Comment: SCDs ordered Status and Disposition: observation status
[2018-07-09 06:49] LABS: ABS Basophils 0 10^3/ul (0-0.2); ABS Eosinophils 0 10^3/ul (0-0.6); ABS Monocytes 0.5 10^3/ul (0-0.8); ABS Neutrophils 3.3 10^3/ul (1.5-7.7); ABS Nucleated RBC 0 10^3/ul; Eosinophil % 0.8 %; Hematocrit 36 % (35-47); Hemoglobin 12.2 g/dl (12.0-16.0); Lymphocyte % 34.5 %; Mean Corpuscular HGB Conc 34 g/dl (31-36); Mean Corpuscular Hemoglobin 29 pg (27-31); Mean Corpuscular Volume 85 fL (80-97); Mean Platelet Volume 7.9 fL (7.4-10.4); Nucleated Red Blood Cells % 0; Platelet Count 183 10^3/ul (150-450); Red Blood Count 4.18 10^6/ul (4.00-5.40); Red Cell Distribution Width 20 % (10.5-15); White Blood Count 5.9 10^3/ul (3.5-10.8)
[2018-07-09 07:13] LABS: BUN/Creatinine Ratio 12.3 (8-20); C Reactive Protein 45.42 mg/L (<8.01); Calcium 8.2 mg/dL (8.6-10.3); EGFR African American 125.5 (>60); EGFR Non-African American 103.7 (>60); Potassium 3.4 mmol/L (3.5-5.0)
[2018-07-09] MEDS ORDERED: VENLAFAXINE PO SCH (09:00)
--- NOTE | 2018-07-09 09:33 | CONS ---
CONSULTATION AND HISTORY AND PHYSICAL: DATE OF CONSULT: 07/09/18 ATTENDING SURGEON: Dr. Dimple Briseno. SERVICE: General Surgery. REASON FOR CONSULT: Right lower quadrant abdominal pain. HISTORY OF PRESENT ILLNESS: Ms. Munoz is a 33-year-old female with a history of CML who is currently on Gleevec who presented to the emergency room last night with complaints of having about 2 days of abdominal pain that she says has now radiated to the right lower quadrant. She says that the pain began approximately on Saturday. She said it came out of nowhere, it was quite severe and it was all of her abdomen. The pain decreased significantly and moved towards the right lower quadrant. She said initially she had some nausea. She felt some chills but she had no vomiting. She spoke to her primary care physician who suggested that she come into the emergency room to be evaluated for acute appendicitis. When she came in, her white count was normal, she was afebrile and she was found on CT scan to have an enlarged appendix; however, there are no signs of inflammatory changes surrounding it. She also had a large right adnexal cyst that was also apparent on her transvaginal ultrasound. Given these findings that were equivocal for acute appendicitis, she was admitted to the medical service for observation. This morning, she reports feeling pretty well. She says her pain has decreased. Her white count has been normal. She remains afebrile. She has no nausea and no vomiting. She has taken no pain medications. PAST MEDICAL HISTORY: CML. PAST SURGICAL HISTORY: section. MEDICATIONS: Gleevec. ALLERGIES: No known drug allergies. FAMILY HISTORY: Hypertension. SOCIAL HISTORY: She is . She has 1 child who is 4 years old. She is a nonsmoker. REVIEW OF SYSTEMS: Negative except for abdominal pain. PHYSICAL EXAM: GENERAL: An obese young woman, lying comfortably in bed, in no apparent distress. Chatting pleasantly. VITAL SIGNS: Temperature is 98.3, pulse is 79, respiratory rate is 16, O2 sat is 99% O2 on room air, blood pressure is 113/54. HEENT: Normocephalic, atraumatic. ABDOMEN: Obese, soft, tender in the right lower quadrant. EXTREMITIES: No edema. LABORATORY DATA: Laboratory values from 07/09/18: White blood cell count is 5.9, hemoglobin is 12.2, hematocrit is 36, platelets are 183,000. Absolute neutrophils is 56%. Sodium is 138, potassium is 3.4, chloride is 107, BUN is 8 , creatinine is 0.65, glucose is 115. Lactic acid is 1.1. CRP is 45, down from 80. IMAGING STUDIES: CT abdomen and pelvis from 07/08/18 shows the appendix is large, no significant surrounding inflammatory change or other definite evidence of appendicitis. This may represent a normal anatomic variation; however, clinical correlation is necessary. Greatest measurement of the appendix is currently 8 mm. There is a partially collapsed appearing 2.7 cm right adnexal cyst and a small amount of possible associated adjacent free fluid. No other acute disease is seen. ASSESSMENT AND PLAN: Ms. Munoz is a 33-year-old female with a history of chronic myeloid leukemia who presented with 2 days of diffuse radiating to right lower quadrant abdominal pain. She does not have a white count; however, given her chronic myeloid leukemia, this may be distorting her ability to mount a proper leukocytosis in the setting of inflammation. However, she has not been on any antibiotics and her pain is actually decreasing, her CRP is coming down, although she does still have right lower quadrant abdominal tenderness on exam. I discussed with her that it is a possibility that she has acute appendicitis and I would recommend going forward with a laparoscopic appendectomy. She agrees with this because she does not want to go home with the possibility that she may have to come back and she prefers not to just take antibiotics. I discussed with her the operation which is laparoscopic appendectomy. I discussed the risks, alternatives, and benefits of doing the surgery. The risks include but not limited to bleeding, infection, injury to nearby anatomic structures such as the small bowel, colon, liver and bladder, the possibility of adverse reaction from anesthesia and medications. It is also possible that the appendix is normal, in which case I would still remove it. She also understands that if she does not have appendicitis her pain not be improved by removing the appendix. She understands all these and wishes to proceed. [id number]/[facility] #: [id number] [facility]
--- NOTE | 2018-07-09 09:36 | PN ---
Subjective Date of Service: 07/09/18 Interval History: Pt is a 33 yof who was admitted last night due to RLQ pain that started Saturday afternoon. She states that this was unprovoked by eating or drinking, and that she thought it was a stomach bug. When the pain persisted into the next day, she saw her PCP, who sent her to the ER for eval. She was found to have an enlarged appendix with no signs of inflammation and a right adnexal cyst on CT. The patient and Dr. Briseno have decided to operate later this morning. Currently, the patient is having abdominal pain. She admits to decreased appetite with no decrease in fluid intake until recently when she was made NPO. She is concerned about taking her Imatinib medication and is requesting evaluation to be able to take it. She denies CP, SOB, cough, fever, n/v/. She states that she had nausea in the beginning, but hasn't had it since the first day. She denies every having vomited. She does admit to diarrhea, although this is her baseline and is a side effect of her medication. She denies pain or swelling in the calves or legs. She has a rash on the abdomen that she noticed while showering. She states she has very sensitive skin, and states the rash is not painful or itchy. 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 She is accompanied by her daughter and her parents. She is in no acute distress and appears comfortable. Eyes: No Scleral Icterus, PERRLA Ears/Nose/Mouth/Throat: NL Teeth, Lips, Gums, Mucous Membranes Moist Neck: NL Appearance and Movements; NL JVP, Trachea Midline, No Thyroid Enlargement, Masses Respiratory: Symmetrical Chest Expansion and Respiratory Effort, Clear to Auscultation Cardiovascular: NL Sounds; No Murmurs; No JVD, RRR, No Edema Abdominal: No Hepatosplenomegaly - Abd sounds in all quadrants. Abd nondistended. TTP in RLQ. No rebound tenderness. Lymphatic: No Cervical Adenopathy Extremities: No Edema, No Clubbing, Cyanosis Skin: - - Red flat macular rash on the abdomen Neurological: Alert and Oriented x 3 Result Diagrams: 07/09/18 06:31 07/09/18 06:31 Additional Lab and Data: Laboratory Tests 07/08/18 07/08/18 07/08/18 17:51 17:51 17:51 INR (Anticoag Therapy) 0.99 Lactic Acid 1.1 Calcium 8.9 AST 25 ALT 22 C-Reactive Protein 80.16 H Total Protein 7.1 Lipase 83 H Beta HCG, Quant < 0.60 Diagnostic Imaging: CT abdo/pelvis: enlarged appendix w/o nearby stranding, RT ovarian cyst Pelvic US: pending Assess/Plan/Problems-Billing Assessment: 33 yo woman with CML here with RLQ pain, differential includes appendicitis, ovarian cyst - Patient Problems (1) RLQ abdominal pain Comment: -Pt continues to have RLQ abd pain; CT shows enlarged appendix and adnexal cyst -Pt will go to OR this morning (2) CML (chronic myeloid leukemia) Comment: -Immunosuppressed w/ Glevek -Call out to heme/onc to see if we can restart post-operatively (3) Rash Comment: -Nonpruritic, nonpainful -Observe for spreading or irritation (4) DVT prophylaxis Comment: -Continue SCDs Status and Disposition: observation status
[2018-07-09] MEDS ORDERED: Atracurium* 10 MG/ML 10 ML VIAL ONE (09:59)
[2018-07-09] MEDS ORDERED: Midazolam* 1 MG/ML 5 ML VIAL (5 MG) ONE (09:59)
[2018-07-09] MEDS ORDERED: fentaNYL* 50 MCG/ML 5 ML VIAL (250 MCG VIAL) ONE (09:59)
[2018-07-09] MEDS ORDERED: Piperacillin/Tazobac ADVAN(*) 3.375 GM in NS 0.9% 100 ML* 100 ML IVPB ONE (10:06)
[2018-07-09] MEDS ORDERED: Bupivacaine 0.25% W/EPI* 10 ML SDV ONE (10:15)
[2018-07-09] MEDS ORDERED: Scopolamine 1.5 mg* PATCH ONE (10:26)
[2018-07-09] MEDS ORDERED: Ketorolac INJ* 30 MG/ML 1 ML VIAL ONE (11:36)
[2018-07-09] MEDS ORDERED: Dexamethasone IV* 4 MG/ML 1 ML (4 MG) ONE (11:36)
[2018-07-09] MEDS ORDERED: Propofol* 10 MG/ML 20 ML BTL ONE (11:36)
[2018-07-09] MEDS ORDERED: Glycopyrrolate IV* 0.2 MG/ML 1 ML VIAL ONE (11:36)
[2018-07-09] MEDS ORDERED: Ondansetron INJ* 2 MG/ML VIAL ONE (11:36)
[2018-07-09] MEDS ORDERED: Succinylcholine* 20 MG/ML 10 ML VIAL ONE (11:36)
[2018-07-09] MEDS ORDERED: Neostigmine Methylsulfate* 1 MG/ML 10 ML VIAL (1 mg/ml) ONE (11:36)
[2018-07-09] MEDS ORDERED: EPHEDrine (Pressors)* 50 MG/ML VIAL ONE (11:36)
[2018-07-09] MEDS ORDERED: Lidocaine 2% PF * 5 ML VIAL ONE (11:36)
[2018-07-09] MEDS ORDERED: PROCHLORPERAZINE INJ 5 MG/ML 2 ML VIAL ONE ×2 (11:36→12:32)
[2018-07-09] MEDS ORDERED: Naloxone* 0.4 MG/ML 1 ML VIAL IV PRN (11:56)
[2018-07-09] MEDS ORDERED: fentaNYL* 50 MCG/ML 2 ML VIAL (100 MCG VIAL) IV PRN (11:56)
[2018-07-09] MEDS ORDERED: PROCHLORPERAZINE INJ 5 MG/ML 2 ML VIAL IV PRN (11:56)
[2018-07-09] MEDS ORDERED: DiMENhydriNATE IV* 50 MG/ML VIAL IV PUSH PRN (11:56)
[2018-07-09] MEDS ORDERED: Acetaminophen IV 1GM/100ML * 10 MG/ML VIAL IVPB ONE (11:56)
[2018-07-09] MEDS ORDERED: HYDROmorphone INJ1* 1 MG/ML SYRINGE IV PRN (11:56)
--- NOTE | 2018-07-09 12:39 | OP ---
DATE OF OPERATION: 07/09/18 - ROOM #340 DATE OF : 81 SERVICE: General Surgery. SURGEON: Dimple Briseno MD PHYSICAL CHEMISTRY TEACHER: None. ANESTHESIOLOGIST: Dr. Alford. PRE-OP DIAGNOSIS: Acute appendicitis. POST-OP DIAGNOSIS: Acute appendicitis. OPERATIVE PROCEDURE: Laparoscopic appendectomy. INDICATIONS FOR SURGERY: Ms. Munoz is a very pleasant 33-year-old female with a history of morbid obesity and CML, who presented to the emergency room with complaints of having right lower quadrant abdominal pain for about 2 days. She was found to have normal white blood cell counts, and a CT scan that was equivocal for appendicitis and also showed a large right adnexal cyst. Given these findings, after period of observation even though she continued to do well , she elected to undergo a laparoscopic appendectomy. She understood the risks , benefits, and alternatives of procedure. She wished to proceed. ESTIMATED BLOOD LOSS: Minimal, less than 10 cc. SPECIMEN: Appendix. DESCRIPTION OF PROCEDURE: The patient was brought back to the operating room and placed on the operating table in the supine position. Venodyne boots were placed on the bilateral lower extremities for DVT prophylaxis. Antibiotics with Zosyn were administered prior to incision. General endotracheal anesthesia was induced and the abdomen was prepped and draped in normal sterile fashion and the left arm was tucked. Prior to beginning the procedure, a time- out was performed verifying the patient's name, MR number, and the procedure to be performed. Marcaine 0.25% was infiltrated into the infraumbilical fold. The skin was divided down to the subcutaneous tissue. The fascia was elevated and divided and then the abdomen was entered under direct visualization. At the fascia, a ptoyuk-ly-iohhg 0 Vicryl suture was placed to facilitate later closure. Next, a Mary trocar was placed into the abdomen under direct visualization, insufflation was obtained to 15 mmHg and a laparoscope was placed into the abdominal cavity, which showed upon inspection that there was no injury that had been made upon entry into the abdomen. Next, the two remaining 5-mm trocars were placed under direct visualization - one in the left lower quadrant and also one over the lower midline. This was done after infiltrating with 0.25% Marcaine. Once this was done, the small bowel was shifted out of the right lower quadrant exposing the cecum and the appendix. The appendix was noted to be slightly hyperemic, and a little bit inflamed, which most likely reflected an appendicitis. It was also interesting that the appendix was very close to the terminal ileum and it appeared that they were running alongside each other, so with great care, the mesoappendix was divided using the LigaSure and then with careful blunt dissection, the appendix was away from the fold of ligament of Treitz that was just barely the terminal ileum from the appendix. Once this was done, the base of the appendix was identified and cleared away of all its mesentery. After this was done, an Endo ASHTYN 45-mm hutson load was used to staple across the base of the appendix. The appendix was placed into a specimen bag and then removed from the abdomen as a specimen. Examination of the staple line showed that it was generally hemostatic. There was one edge laterally that had a small punctate area of bleeding; therefore, an Endoclip was placed across it and it was hemostatic very satisfactorily. Once this was done, the small amount of turbid fluid was suctioned out of the pelvis in the right lower quadrant and the staple line was again inspected and was noted to be hemostatic. Next, under direct visualization, the Mary trocar was removed from the infraumbilical fold and the previously placed 0 Vicryl suture was then used to facilitate its closure under direct visualization to ensure that nothing was caught in this closure and that it was secure. After this, desufflation was obtained. All the remaining trocars were removed under direct visualization. The skin was closed using 4-0 Monocryl suture and sterile dressing was then placed. The patient's general endotracheal anesthesia was reversed and she was taken to the PACU in stable condition. At the end of the case, all counts were correct and I was present during the entirety of the case. [id number]/[facility] #: [id number] [place]
[2018-07-09] MEDS ORDERED: Acetaminophen IV 1GM/100ML * 100 ML ONE (12:42)
--- NOTE | 2018-07-09 14:17 | DS ---
DISCHARGE SUMMARY: DATE OF ADMISSION: 07/08/18 DATE OF DISCHARGE: 07/09/18 PRIMARY CARE PROVIDER: KELLI Edwards ATTENDING PHYSICIAN: Dr. Lo Muñoz * (dictated by KELLI Ferro). PRIMARY DIAGNOSIS: Appendicitis. SECONDARY DIAGNOSIS: Chronic myeloid leukemia. STUDIES WHILE IN THE HOSPITAL: Abdomen and pelvis CT from 07/08/18, impression : The appendix is large. No significant surrounding inflammatory changes or other definite evidence of appendicitis. This may represent normal anatomic variation; however, close clinical correlation is necessary to exclude early appendicitis. Here, 6 mm diameter typically considered the upper limits of normal, greatest measured diameter of the appendix currently is 8 mm. Partially collapsed appearing 2.7 cm right adnexal cyst, small amount of possible associated adjacent free fluid. No other acute disease seen. Transvaginal ultrasound from 07/08/18, impression: Right ovary measures 5 x 2.7 x 4.1 cm and contains partially collapsed appearing 2 x 1.7 x 2.4 cm cyst. No current evidence for torsion with color flow documented. The left ovary could not be visualized. No documented left adnexal mass. DISCHARGE MEDICATIONS: Home medications: 1. Venlafaxine HCl ER 37.5 mg p.o. daily. 2. Imatinib mesylate 800 mg p.o. daily with meals. New home medication: 1. Oxycodone/acetaminophen 5/325 one tab p.o. q.6 hours p.r.n. pain, prescribed 10, maximum daily dose is 4. HISTORY OF PRESENT ILLNESS/HOSPITAL COURSE: Ms. Munoz is a 33-year-old female with a past medical history of CML, who presented to the ER on 07/08/18 with right lower quadrant abdominal pain. She states that she started to have the pain on Saturday afternoon and thought it was stomach bug that had been going around. The following day, the pain persisted and she sought medical attention at her primary care physician's office. She was then referred to the ER for rule out of appendicitis. The patient states that she has had nausea on Saturday , but none since Saturday. She denies vomiting. She states that she does have diarrhea, although this is her baseline as a side effect of the medication she is taking and has not changed in pattern. She states that her abdominal pain is not related to eating. While in the ER, she was evaluated including CAT scan and ultrasound. CAT scan revealed an enlarged appendix with no signs of inflammation. It also revealed an adnexal cyst as did the ultrasound. The patient was admitted for observation and a surgical consult was ordered. That morning the patient was evaluated by surgery. The patient and the surgeon decided that it would be best if the patient had surgery to remove the appendix. Prior to surgery, the patient was seen. She denied chest pain, shortness of breath, cough, fever, nausea, or vomiting. She complained of abdominal pain and diarrhea. She was taken to the OR mid morning and was recovered in the PACU. Her oncologist was consulted and he recommended that the patient is able to be discharged after surgery, which is the common protocol for an appendectomy as long as her platelets and white blood cell count were stable, which they were according to the last 2 labs that were drawn during her stay. He also states that the patient will be able to start taking her imatinib upon discharge. The patient has a rash on her abdomen that she noticed after her shower. She states that it is not bothersome or itchy. She states that she has very sensitive skin and believes that it is just from irritation. She denies chest pain, shortness of breath, cough, fever, nausea and vomiting. She complains of right lower quadrant pain. Ms. Munoz is stable for discharge from PACU per protocol. PHYSICAL EXAMINATION: Vital signs are temperature of 97.5, pulse rate 96, oxygen saturation 95%, blood pressure is 145/95. Ms. Munoz is a well- developed, well-nourished, slightly obese, young white woman, who is sitting up in bed. She is in no acute distress. She is accompanied prior to surgery by her family members. She appears comfortable. HEENT: Visual butterfield are grossly intact. Her pupils are equally round and reactive to light. Extraocular movements are intact. Sclerae are without icterus. Hearing is grossly intact. Oral mucous membranes are moist and without lesions. Pharynx is clear. Neck: Full range of motion. Thyroid not palpable. Trachea at midline. No cervical lymphadenopathy. Respiratory: Symmetrical chest expansion with no use of accessory muscles. Lungs are clear to auscultation. No rhonchi, wheezes, or rales. Cardiovascular: Regular rate and rhythm. S1, S2 present. No murmurs, rubs, or gallops. No JVD. Abdomen: Bowel sounds in all quadrants. The abdomen is nondistended. Abdomen is tender to palpation at the right lower quadrant. There is no rebound tenderness. There is no hepatosplenomegaly. Extremities: Skin is warm and smooth bilaterally. There is no edema. No clubbing or cyanosis. Radial and pedal pulses are 2+ bilaterally. Skin: There is a red flat macular rash on the abdomen. Neuro: The patient is awake, alert, and oriented x3. She is able to move all of her extremities. She has steady gait with no impairment. DISCHARGE PLAN: Ms. Munoz will be discharged home. ACTIVITY: Per Surgery. DIET: Regular. MEDICATIONS: As above. EDUCATION: 1. Percocet p.r.n. pain sent to [facility]. 2. Follow up with PCP in 4 to 7 days. 3. Follow up with Dr. Briseno in 2 weeks. 4. Please see discharge instructions from Dr. Briseno for details on surgical discharge instructions. 5. Return to the ER or nearest hospital if you experience any worsening of symptoms, shortness of breath, lightheadedness, dizziness, chest discomfort, high fevers, chills, night sweats, loss of consciousness, or any other worrisome signs or symptoms. Return if any redness, warmth, or pain at the incision site. This is a summarized report of a complex medical history and hospital stay. For further details, please see the entire medical record. TIME SPENT: Approximately 35 minutes was spent on this discharge, greater than half of that time was spent [id number] with the patient discussing discharge plans and instructions. KELLI MCHUGH [id number]/[facility] #: [id number] DEN
[2018-07-09 18:13] VITALS: BP 154/83
[2018-07-12] MEDS ORDERED: Scopolamine PATCH Remove* 1 NOTE MISC PATCH OFF ONE (11:57)
== END 2018-07-09 18:51 | disposition home or self-care (01) ==
LOC: ED 17:28 → SSU 23:10
PROVIDERS: ADMIT Internal Medicine; ATTEND Internal Medicine
DX: K37 Unspecified appendicitis (principal); C92.10 Chronic myeloid leukemia, BCR/ABL-positive, not having achieved remission; R11.0 Nausea; R10.2 Pelvic and perineal pain; R10.31 Right lower quadrant pain; R21 Rash and other nonspecific skin eruption
CPT/HCPCS: 36415; 74177; 76830; 80048; 80053; 81003; 81015; 83605; 83690; 84702; 85025; 85610; 86140; 87086; 88304; 96374; 96375; 99284; A9270-GY; C1776; G0378; J0330; J0780; J1100; J1885; J2250; J2405; J2543; J2704; J2710; J3010; Q9967

== ENCOUNTER 2018-08-04 14:09 | Emergency (ER) | payer OTHER ==
--- OUTSIDE RECORDS SUMMARY | 2018-08-04 14:35 | XMS REPORT | Continuity of Care Document ---
:1985 External Reference #:[id number] Author Name Trinity Mercado Care Team Providers Name Role Phone Jennifer Demarco PA Primary Care Physician Unavailable Payers Date Identification Numbers Payment Provider Subscriber Policy Number: [id number] [facility] Pardeep Munoz PayID: [id number] [address] [address] [place] [address] Advance Directives Description No Information Available Problems Description No Information Family History Date Family Member(s) Observation Comments General Hypertension Social History Type Date Description Comments Sex Unknown Marital Status Lives With Spouse 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 ETOH Use Denies alcohol use Tobacco Use Start: Unknown Patient has never smoked Recreational Drug Use Denies Drug Use Smoking Status Reviewed: 07/21/18 Patient has never smoked Exercise Type/Frequency Does not exercise Allergies, Adverse Reactions, Alerts Description No Known Drug Allergies Medications Medication Date Status Form Strength Qnty SIG Indications Ordering Provider Gleevec Active Tablets 400mg Unknown 00 Escitalopram Active Tablets 10mg take 1 Unknown Oxalate 00 tablet by mouth once daily Immunizations Description No Information Available Vital Signs Date Vital Result Comment 07/21/2018 9:31am Height 68 inches 5'8" Weight 275.00 lb Heart Rate 80 /min BP Systolic 138 mmHg BP Diastolic 84 mmHg Respiratory Rate 18 /min Body Temperature 98.4 F BMI (Body Mass Index) 41.8 kg/m2 Results Description No Information Available Procedures Date Code Description Status 07/09/2018 62612 Laparoscopy, Surgical, Appendectomy Completed Encounters Type Date Location Provider Dx Diagnosis Office Visit 07/09/2018 [facility] Lo Muñoz MD [id number] Unspecified 10:00a [facility] appendicitis C92.10 Chronic myeloid leuk, BCR/Abl-positive, not achieve remis Office Visit 07/09/2018 7:00a Surgical Dimple Briseno, R10.31 Right lower [facility] MD quadrant pain Office Visit 07/08/2018 9:56a [facility] Andre Clark K37 Unspecified Assoc,rosamaria Gould, appendicitis Hospitalists MMikhail,FACP C92.10 Chronic myeloid leuk, BCR/Abl-positive, not achieve remis Plan of Treatment Future Appointment(s):09/16/2018 9:30 am - Francesco Westbrook M.D. at [facility]07/21/2018 - Dimple Briseno MDK35.80 Unspecified acute appendicitisFollow up:Please feel free to return and see me as needed.
--- NOTE | 2018-08-04 14:43 | ED ---
HPI Chest Pain - HPI Summary HPI Summary: This pt is a 33 y/o female presenting [facility] c/o intermittent left sided chest pain for the past few days. Pt describes her chest pain as sharp. She notes that when she came back from the gym today she noticed blurry vision to her left peripheral eye. Denies SOB, nausea, vomiting, fever, chills, headache. Pt notes she was recently placed on Imatinib Mesylate for chronic myloid leukemia (dx Jan 2018). Her oncologist is Dr. Lopez. LMP: last week, although she states she is irregular. PMHx includes anxiety. - History of Current Complaint Chief Complaint: EDChestPainROMI Time Seen by Provider: 08/04/18 14:32 Hx Obtained From: Patient Hx Last Menstrual Period: no periods Onset/Duration: Started Days Ago, Still Present Timing: Lasting Days Current Severity: None Pain Intensity: 0 Pain Scale Used: 0-10 Numeric Chest Pain Location: Left Anterior Chest Pain Radiates: No Character: Sharp/Stabbing - sharp Aggravating Factor(s): Nothing Alleviating Factor(s): Nothing Associated Signs and Symptoms: Positive: Chest Pain, Headaches, Other: - POS: left eye blurry. Negative: Fever, Chills, Nausea, Vomiting - Allergy/Home Medications Allergies/Adverse Reactions: Allergies Allergy/AdvReac Type Severity Reaction Status Date / Time No Known Allergies Allergy Verified 08/04/18 14:27 Home Medications: Home Medications Escitalopram * [Lexapro 10 mg (NF)] 10 mg PO DAILY 08/04/18 [History Confirmed 08/04/18] LORazepam TAB(*) [Ativan 0.5 MG TAB (*)] 0.25 mg PO TID PRN 08/04/18 [History Confirmed 08/04/18] PMH/Surg Hx/FS Hx/Imm Hx Endocrine/Hematology History: Denies: Hx Diabetes Cardiovascular History: Denies: Hx Hypertension History: Reports: Hx Kidney Infection - kidney stones hx Denies: Hx Renal Disease Sensory History: Denies: Hx Contacts or Glasses, Hx Deafness, Hx Hearing Aid Opthamlomology History: Denies: Hx Contacts or Glasses Neurological History: Denies: Hx CVA, Hx Dementia, Hx Developmental Delay, Hx Headaches, Hx Migraine, Hx Nerve Disease, Hx Peripheral Neuropathy, Hx Seizures, Hx Spinal Cord Injury, Hx Transient Ischemic Attacks (TIA), Other Neuro Impairments/ Disorders Psychiatric History: Reports: Hx Anxiety, Hx Depression - Cancer History Cancer Type, Location and Year: CML Chronic Myloid Leukemia dx 01/2018 Hx Chemotherapy: No - Surgical History Surgery Procedure, Year, and Place: 2012 Infectious Disease History: No Infectious Disease History: Denies: Traveled Outside the [place] in Last 30 Days - Family History Known Family History: Positive: Cardiac Disease - [place] , Hypertension, Other - Spinal bifida- grandfather - Social History Alcohol Use: Rare Hx Substance Use: No Substance Use Type: Reports: None Hx Tobacco Use: No Smoking Status (MU): Never Smoked Tobacco Review of Systems Negative: Fever, Chills Positive: Blurred Vision - left eye Positive: Chest Pain Negative: Shortness Of Breath Negative: Vomiting, Nausea Negative: Headache All Other Systems Reviewed And Are Negative: Yes Physical Exam - Summary Physical Exam Summary: VITAL SIGNS: Reviewed. GENERAL: Patient is a well-developed and nourished female who is lying comfortable in the stretcher. Patient is not in any acute respiratory distress. HEAD AND FACE: No signs of trauma. No ecchymosis, hematomas or skull depressions. No sinus tenderness. EYES: PERRLA, EOMI x 2, No injected conjunctiva, no nystagmus. EARS: Hearing grossly intact. Ear canals and tympanic membranes are within normal limits. MOUTH: Oropharynx within normal limits. NECK: Supple, trachea is midline, no adenopathy, no JVD, no carotid bruit, no c- spine tenderness, neck with full ROM. CHEST: Symmetric, no tenderness at palpation LUNGS: Clear to auscultation bilaterally. No wheezing or crackles. CVS: Regular rate and rhythm, S1 and S2 present, no murmurs or gallops appreciated. ABDOMEN: Soft, non-tender. No signs of distention. No rebound, no guarding, and no masses palpated. Bowel sounds are normal. EXTREMITIES: FROM in all major joints, no edema, no cyanosis or clubbing. NEURO: Alert and oriented x 3. No acute neurological deficits. Speech is normal and follows commands. SKIN: Dry and warm GCS: 15 Triage Information Reviewed: Yes Vital Signs On Initial Exam: Initial Vitals Temp Pulse Resp BP Pulse Ox 99 F 98 16 142/87 100 08/04/18 14:23 03/18/19 14:23 08/04/18 14:23 08/04/18 14:23 08/04/18 14:23 Vital Signs Reviewed: Yes Diagnostics - Vital Signs Vital Signs Temp Pulse Resp BP Pulse Ox 08/04/18 14:23 99 F 98 16 142/87 100 - Laboratory Result Diagrams: 08/04/18 14:41 08/04/18 14:41 Lab Statement: Any lab studies that have been ordered have been reviewed, and results considered in the medical decision making process. - Radiology Chest XR Radiology Interpretation Completed By: Radiologist Summary of Radiographic Findings: IMPRESSION: No active cardiopulmonary disease is noted. Dr. Hinojosa has reviewed this report. - CT Brain CT CT Interpretation Completed By: Radiologist Summary of CT Findings: IMPRESSION: No acute intracranial pathology. Dr. Hinojosa has reviewed this report. - EKG 14:37 Cardiac Rate: NL - at 98 bpm EKG Rhythm: Sinus Rhythm EKG Comparison: Other - No old EKG for comparison Summary of EKG Findings: No ST elevation. ST depression in leads V4, V5, and V6. Re-Evaluation - Re-Evaluation First Eval Re-Evaluation Time: 15:38 Comment: Reviewed the lab, CXR, and CT results with the pt. She will be discharged home. Chest Pain Course/Dx - Course Assessment/Plan: This patient is a 33-year-old female who presents to the emergency room with a chief complaint of chest pain. She reports that she was in the gym and she developed the chest pain and had an episode of low vision in the left eye. At this time the patient is completely asymptomatic. Test results with no significant abnormality except for potassium of 3.3, glucose of 106, and magnesium 1.8. The patient was given potassium and magnesium by mouth. Troponin is 0.00. EKG is a normal sinus rhythm without any ST elevations. Chest x-ray impression: no acute cardiopulmonary disease. At this time the patient is not tachycardic or hypoxic therefore have no suspicion for a PE. Shows Wells criteria is only 2.5. If this goes is less than for PE is unlikely. I decided to do a head CT since the patient had an episode of visual changes in the left eye. The head CT impression shows no acute intracranial pathology. Heart to score is equal to 1. Therefore, no suspicion for an acute coronary syndrome. Since the patient is at baseline and she is asymptomatic, the patient will be discharged home with follow-up from her PCP. The patient is hemodynamically stable, alert and oriented 3. Patient was given instructions that if she develops any other chest pain, shortness of breath, palpitations, dizziness or any other symptom the patient should return to the [facility] immediately for further workup and management. - Chest Pain Differential Diagnosis/HQI/PQRI: Acute AK, ACS, Angina, CHF, Chest Wall, GI Disease, Lower Respiratory Infection - Diagnoses Provider Diagnoses: Atypical chest pain, Visual changes Discharge - Sign-Out/Discharge Documenting (check all that apply): Patient Departure - Discharge home Patient Received Moderate/Deep Sedation with Procedure: No - Discharge Plan Condition: Stable Disposition: HOME Patient Education Materials: Chest Pain (ED), Blurred Vision (ED) Referrals: Jennifer Kim [Primary Care Provider] - Carson Borges MD [Medical Doctor] - Additional Instructions: FOLLOW UP WITH YOUR PRIMARY CARE PROVIDER IN 2-3 DAYS. ALSO FOLLOW UP WITH DIRECTOR HUMAN SERVICES, DR. BORGES. RETURN TO THE ED FOR ANY NEW OR WORSENING SYMPTOMS. - Billing Disposition and Condition Condition: STABLE Disposition: Home - Attestation Statements Document Initiated by Jan: Yes Documenting Scribe: Apoorva Sweeney Provider For Whom Markibe is Documenting (Include Credential): Luis Fernando Hinojosa MD Scribe Attestation: Apoorva Lagunas, scribed for Luis Fernando Hinojosa MD on 08/04/18 at 1829. Scribe Documentation Reviewed: Yes Provider Attestation: The documentation as recorded by the Apoorva han accurately reflects the service I personally performed and the decisions made by nc, Luis Fernando Hinojosa MD Status of Scribe Document: Viewed
[2018-08-04 14:59] LABS: ABS Basophils 0 10^3/ul (0-0.2); ABS Eosinophils 0 10^3/ul (0-0.6); ABS Lymphocytes 1.7 10^3/ul (1.0-4.8); ABS Monocytes 0.6 10^3/ul (0-0.8); ABS Neutrophils 5.4 10^3/ul (1.5-7.7); ABS Nucleated RBC 0 10^3/ul; Eosinophil % 0.3 %; Hematocrit 34 % (33-41); Hemoglobin 11.7 g/dL (12.0-16.0); Lymphocyte % 22.5 %; Mean Corpuscular HGB Conc 35 g/dL (31-36); Mean Corpuscular Hemoglobin 31 pg (27-31); Mean Corpuscular Volume 90 fL (80-97); Mean Platelet Volume 8.1 fL (7.4-10.4); Nucleated Red Blood Cells % 0.1; Platelet Count 196 10^3/uL (150-450); Red Blood Count 3.75 10^6 /uL (3.70-4.87); Red Cell Distribution Width 18 % (10.5-15); White Blood Count 7.8 10^3/uL (3.5-10.8)
[2018-08-04 15:16] LABS: ALT 15 U/L (7-52); AST 19 U/L (13-39); Albumin 4.1 g/dL (3.2-5.2); Albumin/Globulin Ratio 1.8 (1-3); Alkaline Phosphatase 48 U/L (34-104); Anion Gap 6 mmol/L (2-11); BUN/Creatinine Ratio 19.4 (8-20); Blood Urea Nitrogen 14 mg/dL (6-24); CO2 Carbon Dioxide 25 mmol/L (22-32); Calcium 8.7 mg/dL (8.6-10.3); Chloride 107 mmol/L (101-111); Creatine Kinase 108 U/L (10-223); EGFR African American 111.5 (>60); EGFR Non-African American 92.2 (>60); Globulin 2.3 g/dL (2-4); Glucose 106 mg/dL (70-100); Magnesium 1.8 mg/dL (1.9-2.7); Potassium 3.3 mmol/L (3.5-5.0); Sodium 138 mmol/L (135-145); Total Protein 6.4 g/dL (6.4-8.9)
[2018-08-04 15:17] LABS: CKMB ng/mL 1.7 ng/mL (0.6-6.3)
[2018-08-04 15:19] LABS: HCG Pregnancy < 0.60 mIU/mL
[2018-08-04] MEDS ORDERED: Potassium Chlor TAB* 20 MEQ TAB.ER PO ONE (15:33)
[2018-08-04] MEDS ORDERED: Magnesium Oxide TAB* 400 MG PO ONE (15:33)
[2018-08-04 15:45] LABS: TSH (Thyroid Stimulating Horm) 1.49 mcIU/mL (0.34-5.60)
[2018-08-04 15:46] VITALS: BP 130/99
== END 2018-08-04 15:56 | disposition home or self-care (01) ==
LOC: ED 14:09
DX: R07.89 Other chest pain (principal); H53.8 Other visual disturbances; R51 Headache; C92.10 Chronic myeloid leukemia, BCR/ABL-positive, not having achieved remission; F41.9 Anxiety disorder, unspecified; Z82.49 Family history of ischemic heart disease and other diseases of the circulatory system
CPT/HCPCS: 36415; 70450; 71046; 80053; 82550; 82553; 83605; 83735; 83880; 84443; 84484; 84702; 85025; 93005; 99282; A9270-GY